=== PATIENT | male | born 1945 | race American Indian/Alaskan Native ===

== ENCOUNTER 2017-02-28 18:25 | Inpatient (IN) | payer MEDICARE ==
[2017-02-28] MEDS: Insulin Lispro (humaLOG) 100 Units/ml Inj SC SCH (22:20)
[2017-02-28] MEDS: Enoxaparin 80 mg Syringe SC SCH (23:40)
[2017-03-01] MEDS: Insulin Lispro (humaLOG) 100 Units/ml Inj SC SCH ×4 (06:50→21:07)
[2017-03-01 07:10] LABS: HEMATOCRIT 31.3 % (35.0-51.0); MEAN CELL VOLUME 83.9 fl (80.0-94.0); MEAN CORPUSCULAR HEMOGLOBIN 27.1 pg (27.0-31.0); MEAN CORPUSCULAR HGB CONC 32.3 g/dL (33.0-37.0); RED CELL DISTRIBUTION WIDTH 16.1 % (11.5-14.5); WHITE BLOOD COUNT 6.5 K/uL (4.8-10.8)
[2017-03-01 07:23] LABS: ALKALINE PHOSPHATASE 95 U/L (38-126); ALT/SGPT 33 U/L (21-72); AST/SGOT 38 U/L (17-59); BILIRUBIN,TOTAL 0.4 mg/dl (0.2-1.3); BLOOD UREA NITROGEN 10 mg/dl (9-20); CARBON DIOXIDE 25 mmol/L (22-30); CHLORIDE 105 mmol/L (98-107); GFR AFRICAN-AMERICAN > 60; GLUCOSE,RANDOM 104 mg/dL (75-110); POTASSIUM 4.5 MMOL/L (3.6-5.0); SODIUM 142 mmol/l (132-148); TOTAL PROTEIN 6.6 G/DL (6.3-8.2)
[2017-03-01] MEDS: Enoxaparin 80 mg Syringe SC SCH ×3 (08:12→21:56)
[2017-03-01] MEDS ORDERED: Patient's Own Med (Valsartan [Diovan] 320 MG) PO SCH (09:00)
[2017-03-01] MEDS ORDERED: Patient's Own Med (Cyanocobalamin (Vitamin B-12) [B-12] 1,000 MCG) PO SCH (09:00)
--- NOTE | 2017-03-01 12:03 | PSY.TMCNF ---
Nursing - Vital Signs Vital Signs (Last 8 hours): Vital Signs 03/01/17 03/01/17 07:29 08:13 Temperature 97.3 F L Pulse Rate 74 Respiratory 19 Rate Blood Pressure 125/62 125/62 O2 Sat by Pulse 97 Oximetry Pain: 0 - Medications/Other Issues Comment: To follow as per nutrition protocol - Wound Left Lower Calf Wound Type: Stasis Ulcer Wound Shape: Irregular Wound Dressing Status: Dry & Intact Dressing Changed: No Wound Primary Dressing Type: Medicated Gauze Pads Wound Secondary Dressing Type: Gauze Roll/Wrap - Bladder Management Bladder Pattern: Incontinent Voiding Method: Urinal, Diaper - Bowel Management Bowel Pattern: Constipated Physical Therapy - Pain Management Techniques: Medication Occupational Therapy - Arousal/Attention/Orientation Patient Orientation: Person, Place, Time, Appropriate to Age, Appropriate to Situation - ADL/IADL Bathing-Upper Extremity: Moderate Assistance Bathing-Lower Extremity: Maximum Assistance - Pain Alleviating Techniques: Medication Speech Therapy - Assessment Dysphagia/Swallowing Impairment: Moderate Nutrition - Current Diet Current Diet/ Supplement/ Feedings: Pureed nectar thick - Appetite Percent Meal Consumed: 75-100% - Assessment/Goals/Time Frame Assessment/Goals/Time Frame: To follow as per nutrition protocol - Provider Provider: Keri Branch RD Case Management - Discharge Plan Discharge Plan: Home with significant other/family Rehabilitation Plan - Treatment Plan Treatment Plan: Physical Therapy, Occupational Therapy, Speech, Dietary, Patient /Family Education - Recommendation Recommendation: Physical Therapy, Occupational Therapy, Speech, Dietary, Patient /Family Education - Discharge Plan Discharge to: Home
--- NOTE | 2017-03-01 14:29 | CP.PCM.PN ---
Subjective - Date & Time of Evaluation Date of Evaluation: 03/01/17 Time of Evaluation: 09:00 - Subjective Subjective: patinet with left sided weakness Objective - Vital Signs/Intake and Output Vital Signs (last 24 hours): Temp Pulse Resp BP Pulse Ox 97.3 F L 74 19 125/62 97 03/01/17 11:30 03/01/17 11:30 03/01/17 11:30 03/01/17 11:30 03/01/17 07:29 - Medications Medications: Current Medications Amlodipine Besylate (Norvasc) 10 mg PO DAILY [facility] Last Admin: 03/01/17 08:13 Dose: 10 mg Aspirin (Aspirin Chewable) 81 mg PO DAILY [facility] Last Admin: 03/01/17 08:14 Dose: 81 mg Atorvastatin Calcium (Lipitor) 40 mg PO HS [facility] Last Admin: 02/28/17 23:14 Dose: 40 mg Cyanocobalamin (Vitamin B12 1000 Mcg Tab) 1,000 mcg PO DAILY [facility] Last Admin: 03/01/17 08:13 Dose: 1,000 mcg Enoxaparin Sodium (Lovenox) 80 mg SC 1000,2200 [facility] PRN Reason: Protocol Last Admin: 03/01/17 09:37 Dose: Not Given Famotidine (Pepcid) 20 mg PO BID [facility] Last Admin: 03/01/17 08:14 Dose: 20 mg Ferrous Sulfate (Feosol) 325 mg PO DAILY [facility] Last Admin: 03/01/17 08:13 Dose: 325 mg Folic Acid (Folic Acid) 1 mg PO DAILY [facility] Last Admin: 03/01/17 08:14 Dose: 1 mg Ceftriaxone Sodium 1 gm/ (Sodium Chloride) 100 mls @ 100 mls/hr IVPB DAILY@ 1700 [facility] Insulin Human Lispro (Humalog) 0 units SC ACHS [facility] PRN Reason: Protocol Last Admin: 03/01/17 12:36 Dose: Not Given Thiamine HCl (Vitamin B1 Tab) 100 mg PO DAILY [facility] Last Admin: 03/01/17 08:14 Dose: 100 mg Valsartan (Diovan) 320 mg PO DAILY [facility] Last Admin: 03/01/17 08:13 Dose: 320 mg - Labs Labs: 03/01/17 06:40 03/01/17 06:40 PT 11.5 SECONDS (9.6-11.2) H 03/01/17 06:40 INR 1.11 (0.92-1.08) H 03/01/17 06:40 - Head Exam Head Exam: ATRAUMATIC, NORMAL INSPECTION, NORMOCEPHALIC - Eye Exam Eye Exam: EOMI, Normal appearance, PERRL Pupil Exam: NORMAL ACCOMODATION - ENT Exam ENT Exam: Mucous Membranes Moist, Normal Exam - Respiratory Exam Respiratory Exam: Respiratory Distress - Cardiovascular Exam Cardiovascular Exam: REGULAR RHYTHM - GI/Abdominal Exam GI & Abdominal Exam: Soft, Normal Bowel Sounds - Exam External exam: NORMAL EXTERNAL EXAM - Extremities Exam Extremities Exam: Normal Capillary Refill - Back Exam Back Exam: NORMAL INSPECTION - Neurological Exam Neurological Exam: Alert, Awake Neuro motor strength exam: Left Upper Extremity: 2/1, Right Upper Extremity: 3, Left Lower Extremity: 2/1, Right Lower Extremity: 3 - Psychiatric Exam Psychiatric exam: Normal Affect, Normal Mood - Skin Skin Exam: Dry, Intact Assessment and Plan (1) Effusion of right knee Status: Acute (2) Pseudogout of right knee Status: Acute (3) TIA (transient ischemic attack) Status: Acute (4) Leg ulcer, left Status: Acute (5) Constipation Status: Acute (6) Dizzinesses Status: Acute (7) Infected wound Status: Acute (8) Malignant hypertension Status: Acute (9) CVA (cerebral vascular accident) Assessment & Plan: plan for physical, occupational and rec and speech therapy follow up with left heel and left leg ulcer Status: Chronic
--- NOTE | 2017-03-01 14:44 | PN ---
DATE: 03/01/2017 ESTIMATED LENGTH OF STAY: 2-1/2 to 3 weeks. REHABILITATION IMPAIRMENT: Decreased strength, mobility, transfers, gait, problems with swallowing. ETIOLOGICAL DIAGNOSES: Acute cerebrovascular, ICD code 01.1. 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 Rehab medical prognosis fair. INTERVENTIONS: Physical therapy, occupational therapy, recreational therapy, speech therapy. Goals for the patient to be independent in bed mobility, independence of supervision for functional positio nal changes, independence of supervision for simple transfers, supervision to contact guard for compl ex transfers, independence of supervision for ambulation with assistive devices, supervision to conta ct guard for elevations. Functional outcome is good. No acute barriers noted for discharge. TENTATIVE DISCHARGE DISPOSITION: To be discharged home with supportive services. Jorje Su MD cc: [id number] TT: 03/01/2017 14:43:44 Confirmation # [id number] Dictation # [id number] francesco
--- NOTE | 2017-03-01 14:48 | CON ---
DATE: 03/01/2017 HISTORY OF PRESENT ILLNESS: A 71-year-old male admitted for acute inpatient rehab program. 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 Bowles for care of the ulcer and grafting, also history o f obesity, peripheral vascular disease, basilar artery stenosis. ALLERGIES: No known allergies. SOCIAL HISTORY: Smoking 10 years ago. No history of drinking, no history of other drug abuse. FAMILY HISTORY: Noncontributory. FUNCTIONAL STATUS: The patient was living alone in a second floor apartment, 10 steps to negotiate. REVIEW OF SYSTEMS: The patient with left-sided weakness with slurred speech previously, now better. PHYSICAL EXAMINATION: VITAL SIGNS: Stable. NECK: Supple. CHEST: Symmetrical. HEART: Sounds S1, S2. ABDOMEN: Benign. EXTREMITIES: No clubbing, cyanosis, or edema. Left upper extremity: Tone normal, range of motion i s limited, especially at the shoulder. Muscle strength is fair. Limitation in full range of motion of the left shoulder, able to flex and extend the left elbow, make a fist of the hand. Left lower ex tremity: Tone is increased, range of motion is limited. Muscle strength is 3/5. Right upper and ri ght lower extremity: Tone normal, range of motion is functional. Muscle strength is good. Sensatio ns to pinprick, light touch intact. Deep tendon reflexes 2+ bilaterally. Other systems are negative . IMPRESSION: Acute cerebrovascular accident, ICD code 01.1 with left hemiplegia, history of hypertens ion, dyslipidemia, chronic left leg ulcer. PLAN: Physical therapy, occupational therapy, speech therapy, recreational therapy. Plan for the pa tient is for range of motion, strengthening, transfers, ambulation and gait training, activities of d aily living evaluation, equipment evaluation. Speech for swallowing evaluation. Estimated length of stay for this patient is 2-3 weeks. Anticipated discharge plan is to go back to live at home with s upportive services. Goals at present for supervision: The patient for independence of supervision for bed mobility, inde pendent to supervision for simple transfers, supervision and contact guard for complex transfers, ind ependence of supervision for ambulation with assistive devices, supervision to contact guard for elev ations. Further goals may be modified depending on return of muscle strength. PRECAUTIONS: Fall precautions. Therapy orders for physical and occupational and recreational and sp eech therapy orders are written. The patient also for team conference today as well. Jorje Su MD cc: [id number] TT: 03/01/2017 14:47:11 Confirmation # [id number] Dictation # [id number] dn
[2017-03-01] MEDS ORDERED: cefTRIAXone (Rocephin) 1 gm Inj IVPB SCH (17:00)
--- NOTE | 2017-03-01 21:04 | CON ---
DATE: 03/01/2017 TIME OF DICTATION: Roughly 6 p.m. BRIEF HISTORY: The patient is a 71-year-old black male status post stroke, currently wheelchair depe ndent, but previously walked with a cane, who complained of seeing some blood in his urine a few days ago, which has resolved spontaneously. A urinalysis done on 02/27/2017 was completely normal, showi ng no evidence of any hematuria. The patient currently denies dysuria, renal colic, or abdominal pain. No history of any kidney stone s or kidney disease. No history of any sexually transmitted diseases. No history of cancer, especia lly prostate cancer. No family history of prostate cancer. He stopped using tobacco and alcohol many, many years ago. He has no known allergies to any medications. His only surgical history is that of a bypass graft done for the left lower extremity. PHYSICAL EXAMINATION: The patient is a well-developed and well-nourished black male. He is alert. He is oriented. HENT EXAMINATION: Grossly within normal limits. NECK: Supple. Thyroid not palpable. ABDOMEN: Soft, not distended or tender. No CVA tenderness, and no suprapubic tenderness. GENITALIA: The patient is noncircumcised, with a normal glanular meatus, without any rashes or lesio ns visualized. Testes are down bilaterally, nontender, without any masses. RECTAL EXAMINATION: Normal rectal tone without fluctuance or masses. Prostate is slightly enlarged, smooth, symmetrical, nontender, without nodules or indurations, with an almost absent median sulcus. Laboratory evaluation on 03/01/2017 shows a CBC with a WBC count of 6.5, hemoglobin of 10.1, and dutch tocrit of 31.3, with a platelet count of 300,000, indicating a moderate anemia. His chem profile arpit ws a sodium of 142, potassium 4.5, chloride 105, CO2 of 25, BUN and creatinine of 10 and 1.2 respecti vely, with a GFR of greater than 60. Random glucose was 109, calcium was 9.0, total bilirubin 0.4. AST was 38, ALT was 33, alk phos was 95. DIAGNOSTIC IMPRESSION: 1. History of gross hematuria which has resolved spontaneously. 2. Benign prostatic hypertrophy, currently not requiring any type of benign prostatic hypertrophy med ications. The patient has a history of some urinary frequency and some nocturia. Plan for this patient is to just order a PSA for this patient and observe him for any further episode s of any hematuria. Brice Aparicio MD cc: [id number] TT: 03/01/2017 21:03:24 Confirmation # [id number] Dictation # [id number] jn
[2017-03-02] MEDS: Insulin Lispro (humaLOG) 100 Units/ml Inj SC SCH ×4 (06:48→21:09)
[2017-03-02] MEDS: Enoxaparin 80 mg Syringe SC SCH ×2 (09:03→21:09)
--- NOTE | 2017-03-02 10:34 | CP.PCM.CON ---
History of Present Illness - History of Present Illness History of Present Illness: PODIATRY CONSULT NOTE FOR DR. GEORGE: This is a 71 yo male pt w/ pmh HTN, chronic left leg ulceration, past CVA, recent TIA seen at the bedside in rehab this morning following request for podiatry consult. Per pt he says that he was recently at [facility] and suffered a stroke which he says left him with trouble swallowing and left sided weakness. 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 George weekly for wound care to the left leg ulcer. Says that the wound is much improved and causes him very little pain (has had for over 1 year). Also says his toenails are long and would like them to be cut today. Denies any other pedal problems at this time. PMH: HTN, chronic left leg ulcer, CVA (2010) ALL: NKDA MEDS: see JAN Surg. Hx: appendectomy, colonoscopy 2006 (polyps removed), left leg ulcer debridement + graft application (August 2016) Fam Hx: father diabetic, mother valvular heart disease Soc Hx: smoked cigarettes for 10 years (quit 1991), denies etoh, denies illicit drug use Review of Systems - Review of Systems Review of Systems: All systems reviewed and found to be negative with exception of pertinent HPI findings above - Constitutional Constitutional: As Per HPI Past Patient History - Infectious Disease Hx of Infectious Diseases: None - Past Medical History & Family History Past Medical History?: Yes - Past Social History Smoking Status: Former Smoker - CARDIAC Hx Hypertension: Yes - PULMONARY Hx Respiratory Disorders: No - NEUROLOGICAL HX Cerebrovascular Accident: Yes - HEENT Hx HEENT Problems: No - RENAL Hx Chronic Kidney Disease: Yes (CKD Stage 2) Other/Comment: - February 2017: (+) for UTI - ENDOCRINE/METABOLIC Hx Endocrine Disorders: No (Hx. Obesity; Denied being diabetic) - HEMATOLOGICAL/ONCOLOGICAL Hx AIDS: No Hx Human Immunodeficiency Virus (HIV): No - INTEGUMENTARY Hx Dermatological Problems: Yes Other/Comment: - Chronic left lower leg ulcer - MUSCULOSKELETAL/RHEUMATOLOGICAL Hx Falls: Yes - GASTROINTESTINAL Hx Gastrointestinal Disorders: Yes Hx Bowel Surgery: Yes (Patient stated "colon resection 2006") - GENITOURINARY/GYNECOLOGICAL Hx Prostate Problems: Yes ("little bleeding") - PSYCHIATRIC Hx Substance Use: No - SURGICAL HISTORY Hx Surgeries: Yes Hx Appendectomy: Yes Hx Cardiac Catheterization: Yes (Left leg cath) Other/Comment: - "Colon Resection 2006". - 2013 or 2015: "cath done to left leg to look at circulation" - ANESTHESIA Hx Anesthesia: Yes Hx Anesthesia Reactions: No Hx Malignant Hyperthermia: No Has any member of the family had a problem w/ anesthesia?: No Meds Allergies/Adverse Reactions: Allergies Allergy/AdvReac Type Severity Reaction Status Date / Time No Known Allergies Allergy Verified 02/28/17 21:47 - Medications Medications: Current Medications Amlodipine Besylate (Norvasc) 10 mg PO DAILY [facility] Last Admin: 03/02/17 09:02 Dose: 10 mg Aspirin (Aspirin Chewable) 81 mg PO DAILY [facility] Last Admin: 03/02/17 09:02 Dose: 81 mg Atorvastatin Calcium (Lipitor) 40 mg PO HS [facility] Last Admin: 03/01/17 21:56 Dose: 40 mg Cyanocobalamin (Vitamin B12 1000 Mcg Tab) 1,000 mcg PO DAILY [facility] Last Admin: 03/02/17 09:02 Dose: 1,000 mcg Enoxaparin Sodium (Lovenox) 80 mg SC 1000,2200 [facility] PRN Reason: Protocol Last Admin: 03/02/17 09:03 Dose: 80 mg Famotidine (Pepcid) 20 mg PO BID [facility] Last Admin: 03/02/17 09:01 Dose: 20 mg Ferrous Sulfate (Feosol) 325 mg PO DAILY [facility] Last Admin: 03/02/17 09:01 Dose: 325 mg Folic Acid (Folic Acid) 1 mg PO DAILY [facility] Last Admin: 03/02/17 09:01 Dose: 1 mg Ceftriaxone Sodium 1 gm/ (Sodium Chloride) 100 mls @ 100 mls/hr IVPB DAILY@ 1700 [facility] Last Admin: 03/01/17 16:30 Dose: 100 mls/hr Insulin Human Lispro (Humalog) 0 units SC ACHS [facility] PRN Reason: Protocol Last Admin: 03/02/17 06:48 Dose: Not Given Thiamine HCl (Vitamin B1 Tab) 100 mg PO DAILY [facility] Last Admin: 03/02/17 09:02 Dose: 100 mg Valsartan (Diovan) 320 mg PO DAILY [facility] Last Admin: 03/02/17 09:02 Dose: 320 mg Physical Exam - Constitutional Appears: Non-toxic, No Acute Distress - Extremities Exam Extremities exam: Negative for: calf tenderness Additional comments: BL lower extremity exam: Compressions stockings donned to both legs, dressing to right leg appears c/d/i VASC- DP pulses palpable 1/4 BL, PT pulses non-palpable bl, skin temp runs warm to cool bl, cft <3 sec to digits x 10, no pedal edema appreciated NEURO- gross pedal sensation is intact bl DERM- superficial ulceration (kraft grade 1) noted to distal lateral aspect of leg measures approx 2.0x0.5x0.2cm with wound bed 100% granular base, no drainage , malodor, no probe to bone, no acute signs infection, surrounding skin with hypo-pigmentation of previous skin graft noted appears 100% healed ORTHO- no pain to palpation wound - Neurological Exam Neurological exam: Alert, CN II-XII Intact, Oriented x3 - Psychiatric Exam Psychiatric exam: Normal Affect, Normal Mood Results - Vital Signs Recent Vital Signs: Last Vital Signs Temp 97.3 F L 03/02/17 09:05 Pulse 70 03/02/17 09:05 Resp 20 03/02/17 09:05 BP 148/68 03/02/17 09:05 Pulse Ox 97 03/02/17 09:05 - Labs Result Diagrams: 03/01/17 06:40 03/01/17 06:40 Labs: Laboratory Results - last 24 hr 03/01/17 03/01/17 03/01/17 10:56 15:56 20:41 POC Glucose (mg/dL) 148 H 96 115 H 03/02/17 06:07 POC Glucose (mg/dL) 105 Assessment & Plan - Assessment and Plan (Free Text) Assessment: 71 yo male patient w/ pmhx PVD, HTN, CVA, recent TIA, chronic left leg ulceration Plan: -Pt S&E at bedside -Plan discussed w/ attending Dr. George -Chart, labs, vitals reviewed: afebrile, no leukocystosis -Left leg ulceration cleansed with normal saline, xeroform, DSD, kerlix applied. COmpression stocking reapplied -Dressing to be chanted every other day (next dressing change Monday) -Toenails aseptically debrided x 10 without incident -Stable per podiatry -Podiatry will continue to follow while pt remains in house
[2017-03-02] MEDS ORDERED: Barium Sulfate Susp 0.1% w/v, 0.1% w/w 450 mL Bottle PO ONE (10:58)
[2017-03-02] MEDS: Lactobacillus Acidophilus 500 MU Cap PO SCH (16:43)
--- NOTE | 2017-03-02 17:03 | CP.PCM.HP ---
History of Present Illness - History of Present Illness History of Present Illness: CC: Acute CVA History of present Illness: A 71yoM with H/O CVA with left sided residual weakness, HTN and dyslipidemia was hospitalized after presenting with slurred speech, worsened left sided weakness and unable to swallow. IN the hopsital course, MRI Confirmed Acute CVA with Focalities. Given B/L Cerebral involvement, NICOL was done which showed ASD. Given patient developed ACute CVA while on Plavix and ASA and B/L CVA, Anticoagulation was initiated. Then the patient developed Hematuria while on Therapeutic Lovenox, and Coumadin. U/A showed UTI and Hematuria, and U/S showed Enlarged prostate. Currently speech is improving and tolerating Puree diet, and will get swallow evaluation. Present on Admission - Present on Admission Any Indicators Present on Admission: No History of DVT/PE: No History of Uncontrolled Diabetes: No Urinary Catheter: No Decubitus Ulcer Present: No Review of Systems - Review of Systems All systems: reviewed and no additional remarkable complaints except Past Patient History - Infectious Disease Hx of Infectious Diseases: None - Past Medical History & Family History Past Medical History?: Yes Past Family History: Reviewed and not pertinent - Past Social History Smoking Status: Former Smoker Alcohol: None Drugs: Denies - CARDIAC Hx Hypertension: Yes Hx Peripheral Vascular Disease: Yes Other/Comment: ASD - PULMONARY Hx Respiratory Disorders: No - NEUROLOGICAL HX Cerebrovascular Accident: Yes Hx Paralysis: Yes (Left sided) Hx Transient Ischemic Attacks (TIA): Yes - HEENT Hx HEENT Problems: No - RENAL Hx Chronic Kidney Disease: Yes (CKD Stage 2) Other/Comment: - February 2017: (+) for UTI - ENDOCRINE/METABOLIC Hx Endocrine Disorders: No (Hx. Obesity; Denied being diabetic) - HEMATOLOGICAL/ONCOLOGICAL Hx AIDS: No Hx Human Immunodeficiency Virus (HIV): No - INTEGUMENTARY Hx Dermatological Problems: Yes Other/Comment: - Chronic left lower leg ulcer - MUSCULOSKELETAL/RHEUMATOLOGICAL Hx Falls: Yes - GASTROINTESTINAL Hx Gastrointestinal Disorders: Yes Hx Bowel Surgery: Yes (Patient stated "colon resection 2006") HX Swallowing Problems: Yes - GENITOURINARY/GYNECOLOGICAL Hx Hematuria: Yes (Last Hospitalization in [facility] [place] 02/22/2017) Hx Prostate Problems: Yes ("little bleeding") - PSYCHIATRIC Hx Substance Use: No - SURGICAL HISTORY Hx Surgeries: Yes Hx Appendectomy: Yes Hx Cardiac Catheterization: Yes (Left leg cath) Other/Comment: - "Colon Resection 2006". - 2013 or 2015: "cath done to left leg to look at circulation" - ANESTHESIA Hx Anesthesia: Yes Hx Anesthesia Reactions: No Hx Malignant Hyperthermia: No Has any member of the family had a problem w/ anesthesia?: No Meds Allergies/Adverse Reactions: Allergies Allergy/AdvReac Type Severity Reaction Status Date / Time No Known Allergies Allergy Verified 02/28/17 21:47 Physical Exam - Constitutional Appears: Well, No Acute Distress - Head Exam Head Exam: ATRAUMATIC, NORMAL INSPECTION, NORMOCEPHALIC - Eye Exam Eye Exam: EOMI, Normal appearance, PERRL Pupil Exam: NORMAL ACCOMODATION, PERRL - ENT Exam ENT Exam: Mucous Membranes Moist, Normal Exam - Neck Exam Neck exam: Positive for: Full Rom, Normal Inspection - Respiratory Exam Respiratory Exam: Clear to Auscultation Bilateral, NORMAL BREATHING PATTERN - Cardiovascular Exam Cardiovascular Exam: REGULAR RHYTHM, +S1, +S2 - GI/Abdominal Exam GI & Abdominal Exam: Normal Bowel Sounds, Soft. absent: Tenderness - Extremities Exam Extremities exam: Positive for: full ROM, normal capillary refill, normal inspection - Back Exam Back exam: NORMAL INSPECTION. absent: CVA tenderness (L), CVA tenderness (R) - Neurological Exam Neurological exam: Alert, Oriented x3, Reflexes Normal Additional comments: Slurred speech and dysphagia which is improving from hospital. Failed spppech swallow in the Hospital. Left Upper Extremity- Weakness and spasticity from prior stroke, and left LE weakness worse than the baseline. +Facial Palsy. - Psychiatric Exam Psychiatric exam: Normal Affect, Normal Mood - Skin Skin Exam: Dry, Intact, Normal Color, Warm Results - Vital Signs Recent Vital Signs: Last Vital Signs Temp 97.0 F L 03/02/17 15:34 Pulse 62 03/02/17 15:34 Resp 18 03/02/17 15:34 BP 131/79 03/02/17 15:34 Pulse Ox 100 03/02/17 15:34 - Labs Result Diagrams: 03/01/17 06:40 03/01/17 06:40 Labs: Laboratory Results - last 24 hr 03/01/17 03/02/17 03/02/17 20:41 06:07 11:35 POC Glucose (mg/dL) 115 H 105 115 H 03/02/17 15:56 POC Glucose (mg/dL) 123 H - Imaging and Cardiology MRI - head Status: Report reviewed by me Additional comment: posterior Circulation Infarct to B/L Cerebral infarction, Vermis and Pontine infarcts. 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 Assessment & Plan (1) CVA (cerebral vascular accident) Assessment and Plan: Acute CVA Left sided acute on Chronic Hemiplegia Slurred speech Dysphagia Continue ASA/Lipitor/Lovenox 80mg SQ Q12/PT/OT Speech Consult for speech and swallowing Physiatry Consult with Status: Chronic Priority: Medium (2) UTI (urinary tract infection) Assessment and Plan: Continue Rocephin for 4 more days Status: Acute Priority: Medium (3) Leg ulcer, left Assessment and Plan: Continue Wound CAre Podiatry Consult Status: Chronic Priority: Medium (4) Constipation Assessment and Plan: Colace 100mg BID Status: Chronic Priority: Low (5) Hypertension Status: Chronic Priority: Medium (6) BPH (benign prostatic hyperplasia) Assessment and Plan: Hematuria Urlogy Consult PSA Status: Acute
[2017-03-03] MEDS: Insulin Lispro (humaLOG) 100 Units/ml Inj SC SCH ×4 (07:04→21:12)
[2017-03-03] MEDS: Lactobacillus Acidophilus 500 MU Cap PO SCH ×2 (08:36→17:23)
[2017-03-03] MEDS: Enoxaparin 80 mg Syringe SC SCH ×3 (09:00→21:27)
--- NOTE | 2017-03-03 13:50 | CP.PCM.PN ---
Subjective - Date & Time of Evaluation Date of Evaluation: 03/03/17 Time of Evaluation: 13:00 - Subjective Subjective: no acute complaints of neck or back pain Objective - Vital Signs/Intake and Output Vital Signs (last 24 hours): Temp Pulse Resp BP Pulse Ox 98.2 F 65 20 126/68 96 03/03/17 10:00 03/03/17 10:00 03/03/17 10:00 03/03/17 10:00 03/03/17 10:00 - Medications Medications: Current Medications Amlodipine Besylate (Norvasc) 10 mg PO DAILY [facility] Last Admin: 03/03/17 08:38 Dose: 10 mg Aspirin (Aspirin Chewable) 81 mg PO DAILY [facility] Last Admin: 03/03/17 08:37 Dose: 81 mg Atorvastatin Calcium (Lipitor) 40 mg PO HS [facility] Last Admin: 03/02/17 21:09 Dose: 40 mg Cyanocobalamin (Vitamin B12 1000 Mcg Tab) 1,000 mcg PO DAILY [facility] Last Admin: 03/03/17 08:38 Dose: 1,000 mcg Docusate Sodium (Colace) 100 mg PO BID [facility] Last Admin: 03/03/17 08:37 Dose: 100 mg Enoxaparin Sodium (Lovenox) 80 mg SC 1000,2200 [facility] PRN Reason: Protocol Last Admin: 03/03/17 09:00 Dose: 80 mg Famotidine (Pepcid) 20 mg PO BID [facility] Last Admin: 03/03/17 08:38 Dose: 20 mg Ferrous Sulfate (Feosol) 325 mg PO DAILY [facility] Last Admin: 03/03/17 08:37 Dose: 325 mg Folic Acid (Folic Acid) 1 mg PO DAILY [facility] Last Admin: 03/03/17 08:37 Dose: 1 mg Ceftriaxone Sodium 1 gm/ (Sodium Chloride) 100 mls @ 100 mls/hr IVPB DAILY@ 1700 [facility] Last Admin: 03/02/17 16:43 Dose: 100 mls/hr Insulin Human Lispro (Humalog) 0 units SC ACHS [facility] PRN Reason: Protocol Last Admin: 03/03/17 12:07 Dose: Not Given Lactobacillus Acidophilus (Bacid Acidophilus) 1 cap PO BID [facility] Last Admin: 03/03/17 08:36 Dose: 1 cap Thiamine HCl (Vitamin B1 Tab) 100 mg PO DAILY [facility] Last Admin: 03/03/17 08:37 Dose: 100 mg Valsartan (Diovan) 320 mg PO DAILY [facility] Last Admin: 03/03/17 08:38 Dose: 320 mg Warfarin Sodium (Coumadin) 5 mg PO QD5 [facility] PRN Reason: Protocol Stop: 03/03/17 17:01 - Labs Labs: 03/01/17 06:40 03/01/17 06:40 PT 11.4 SECONDS (9.6-11.2) H 03/03/17 09:20 INR 1.10 (0.92-1.08) H 03/03/17 09:20 - Head Exam Head Exam: ATRAUMATIC, NORMAL INSPECTION, NORMOCEPHALIC - Eye Exam Eye Exam: EOMI, Normal appearance, PERRL Pupil Exam: NORMAL ACCOMODATION - ENT Exam ENT Exam: Mucous Membranes Moist, Normal Exam - Neck Exam Neck Exam: Normal Inspection - Respiratory Exam Respiratory Exam: NORMAL BREATHING PATTERN - Cardiovascular Exam Cardiovascular Exam: REGULAR RHYTHM - GI/Abdominal Exam GI & Abdominal Exam: Normal Bowel Sounds - Rectal Exam Rectal Exam: NORMAL INSPECTION - Exam External exam: NORMAL EXTERNAL EXAM - Extremities Exam Extremities Exam: Normal Capillary Refill, Normal Inspection - Back Exam Back Exam: NORMAL INSPECTION - Neurological Exam Neurological Exam: Alert, Awake Neuro motor strength exam: Left Upper Extremity: 2/1, Right Upper Extremity: 3, Left Lower Extremity: 2/1, Right Lower Extremity: 3 - Psychiatric Exam Psychiatric exam: Normal Affect, Normal Mood - Skin Skin Exam: Dry, Intact Assessment and Plan (1) Effusion of right knee Status: Acute (2) TIA (transient ischemic attack) Assessment & Plan: plan for physical, occupational, rec therapy monitor skin and vital sign Status: Acute (3) Leg ulcer, left Status: Chronic (4) Constipation Status: Chronic (5) Dizzinesses Status: Acute (6) Infected wound Status: Acute (7) Malignant hypertension Status: Acute (8) CVA (cerebral vascular accident) Status: Chronic
[2017-03-03 19:56] LABS: ESTIM. PROBABILITY CANCER >50 Percent (()); TOTAL PSA 11.5 ng/mL (<=4.0)
--- NOTE | 2017-03-03 22:59 | CP.PCM.PN ---
Subjective - Date & Time of Evaluation Date of Evaluation: 03/03/17 Time of Evaluation: 16:00 Objective - Vital Signs/Intake and Output Vital Signs (last 24 hours): Temp Pulse Resp BP Pulse Ox 98.1 F 62 20 123/70 98 03/03/17 22:00 03/03/17 22:00 03/03/17 22:00 03/03/17 22:00 03/03/17 22:00 - Medications Medications: Current Medications Amlodipine Besylate (Norvasc) 10 mg PO DAILY [facility] Last Admin: 03/03/17 08:38 Dose: 10 mg Aspirin (Aspirin Chewable) 81 mg PO DAILY [facility] Last Admin: 03/03/17 08:37 Dose: 81 mg Atorvastatin Calcium (Lipitor) 40 mg PO HS [facility] Last Admin: 03/03/17 21:09 Dose: 40 mg Cyanocobalamin (Vitamin B12 1000 Mcg Tab) 1,000 mcg PO DAILY [facility] Last Admin: 03/03/17 08:38 Dose: 1,000 mcg Docusate Sodium (Colace) 100 mg PO BID [facility] Last Admin: 03/03/17 17:24 Dose: 100 mg Enoxaparin Sodium (Lovenox) 80 mg SC 1000,2200 [facility] PRN Reason: Protocol Last Admin: 03/03/17 21:27 Dose: Not Given Famotidine (Pepcid) 20 mg PO BID [facility] Last Admin: 03/03/17 17:24 Dose: 20 mg Ferrous Sulfate (Feosol) 325 mg PO DAILY [facility] Last Admin: 03/03/17 08:37 Dose: 325 mg Folic Acid (Folic Acid) 1 mg PO DAILY [facility] Last Admin: 03/03/17 08:37 Dose: 1 mg Ceftriaxone Sodium 1 gm/ (Sodium Chloride) 100 mls @ 100 mls/hr IVPB DAILY@ 1700 [facility] Last Admin: 03/03/17 17:23 Dose: 100 mls/hr Insulin Human Lispro (Humalog) 0 units SC ACHS [facility] PRN Reason: Protocol Last Admin: 03/03/17 21:12 Dose: Not Given Lactobacillus Acidophilus (Bacid Acidophilus) 1 cap PO BID [facility] Last Admin: 03/03/17 17:23 Dose: 1 cap Thiamine HCl (Vitamin B1 Tab) 100 mg PO DAILY [facility] Last Admin: 03/03/17 08:37 Dose: 100 mg Valsartan (Diovan) 320 mg PO DAILY [facility] Last Admin: 03/03/17 08:38 Dose: 320 mg - Labs Labs: 03/01/17 06:40 03/01/17 06:40 PT 11.4 SECONDS (9.6-11.2) H 03/03/17 09:20 INR 1.10 (0.92-1.08) H 03/03/17 09:20 Assessment and Plan (1) CVA (cerebral vascular accident) Status: Chronic (2) UTI (urinary tract infection) Status: Acute (3) Leg ulcer, left Status: Chronic (4) Constipation Status: Chronic (5) Hypertension Status: Chronic (6) BPH (benign prostatic hyperplasia) Status: Acute
[2017-03-04] MEDS: Insulin Lispro (humaLOG) 100 Units/ml Inj SC SCH ×2 (06:40→12:00)
[2017-03-04] MEDS: Lactobacillus Acidophilus 500 MU Cap PO SCH ×2 (08:40→17:00)
[2017-03-04] MEDS: Enoxaparin 80 mg Syringe SC SCH ×2 (09:26→21:57)
[2017-03-04 09:46] LABS: HEMATOCRIT 32.3 % (35.0-51.0); MEAN CELL VOLUME 84.7 fl (80.0-94.0); MEAN CORPUSCULAR HEMOGLOBIN 26.9 pg (27.0-31.0); MEAN CORPUSCULAR HGB CONC 31.8 g/dL (33.0-37.0); WHITE BLOOD COUNT 6.2 K/uL (4.8-10.8)
--- NOTE | 2017-03-04 12:09 | CP.PCM.PN ---
Subjective - Date & Time of Evaluation Date of Evaluation: 03/04/17 Time of Evaluation: 11:30 - Subjective Subjective: 71 yo male pt S&E at bedside in rehab this morning for f/u left leg ulceration. Pt seen resting comfortably in bedside chair at time of visit. Denies any acute events overnight. Denies any pain or discomfort to the leg. Denies f/n/v/c/sob/ cp. Denies any other problems today Objective - Vital Signs/Intake and Output Vital Signs (last 24 hours): Temp Pulse Resp BP Pulse Ox 97.5 F L 80 18 141/90 98 03/04/17 07:35 03/04/17 09:55 03/04/17 07:35 03/04/17 09:55 03/04/17 09:55 - Medications Medications: Current Medications Amlodipine Besylate (Norvasc) 10 mg PO DAILY [facility] Last Admin: 03/04/17 09:25 Dose: 10 mg Aspirin (Aspirin Chewable) 81 mg PO DAILY [facility] Last Admin: 03/04/17 08:42 Dose: 81 mg Atorvastatin Calcium (Lipitor) 40 mg PO HS [facility] Last Admin: 03/03/17 21:09 Dose: 40 mg Cyanocobalamin (Vitamin B12 1000 Mcg Tab) 1,000 mcg PO DAILY [facility] Last Admin: 03/04/17 08:41 Dose: 1,000 mcg Docusate Sodium (Colace) 100 mg PO BID [facility] Last Admin: 03/04/17 08:41 Dose: 100 mg Enoxaparin Sodium (Lovenox) 80 mg SC 1000,2200 [facility] PRN Reason: Protocol Last Admin: 03/04/17 09:26 Dose: 80 mg Famotidine (Pepcid) 20 mg PO BID [facility] Last Admin: 03/04/17 08:41 Dose: 20 mg Ferrous Sulfate (Feosol) 325 mg PO DAILY [facility] Last Admin: 03/04/17 08:41 Dose: 325 mg Folic Acid (Folic Acid) 1 mg PO DAILY [facility] Last Admin: 03/04/17 08:41 Dose: 1 mg Ceftriaxone Sodium 1 gm/ (Sodium Chloride) 100 mls @ 100 mls/hr IVPB DAILY@ 1700 [facility] Last Admin: 03/03/17 17:23 Dose: 100 mls/hr Insulin Human Lispro (Humalog) 0 units SC ACHS [facility] PRN Reason: Protocol Last Admin: 03/04/17 06:40 Dose: Not Given Lactobacillus Acidophilus (Bacid Acidophilus) 1 cap PO BID [facility] Last Admin: 03/04/17 08:40 Dose: 1 cap Thiamine HCl (Vitamin B1 Tab) 100 mg PO DAILY [facility] Last Admin: 03/04/17 08:45 Dose: 100 mg Valsartan (Diovan) 320 mg PO DAILY [facility] Last Admin: 03/04/17 08:41 Dose: 320 mg - Labs Labs: 03/04/17 08:30 03/01/17 06:40 PT 11.6 SECONDS (9.6-11.2) H 03/04/17 06:30 INR 1.12 (0.92-1.08) H 03/04/17 06:30 - Constitutional Appears: Non-toxic, No Acute Distress - Extremities Exam Extremities Exam: absent: Calf Tenderness Additional comments: LLE exam: Compressions stockings donned to both legs, dressing to left leg appears c/d/i VASC- DP pulses palpable 1/4 BL, PT pulses non-palpable bl, skin temp runs warm to cool bl, cft <3 sec to digits x 10, no pedal edema appreciated NEURO- gross pedal sensation is intact bl DERM- superficial ulceration (kraft grade 1) noted to distal lateral aspect of leg measures approx 2.0x0.5x0.2cm with wound bed 100% granular base, no drainage , malodor, no probe to bone, no acute signs infection, surrounding skin with hypo-pigmentation of previous skin graft noted appears 100% healed ORTHO- no pain to palpation wound - Neurological Exam Neurological Exam: Alert, Awake, Oriented x3 - Psychiatric Exam Psychiatric exam: Normal Affect, Normal Mood Assessment and Plan - Assessment and Plan (Free Text) Assessment: 71 yo male patient w/ pmhx PVD, HTN, CVA, recent TIA, chronic left leg ulceration (non-infected) Plan: -Pt S&E at bedside -Plan discussed w/ attending Dr. Hernandez -Chart, labs, vitals reviewed: afebrile, no leukocystosis -Left leg ulceration cleansed with normal saline, xeroform, DSD, kerlix applied. Compression stocking reapplied -Dressing to be chanted every other day (next dressing change Monday) -Stable per podiatry -Podiatry will continue to follow while pt remains in house
--- NOTE | 2017-03-04 16:01 | PN ---
DATE: 03/04/2017 Roughly at 3:12 p.m. Called to see the patient in followup regarding an elevated PSA of 11.5 found on lab work done on 02/11. His total PSA was 11.5 and a free PSA was 2.2%. This PSA, however, was drawn while the migue ent was being treated for urinary tract infection for which he currently still is receiving antibioti cs at this time. The patient currently though however, is relatively asymptomatic. He is voiding am julian urine well without any complaints. He has no dysuria, gross hematuria, renal colic, or abdominal pain. This finding was discussed completely with the patient at the bedside and the patient will be seen in office followup in about 2 weeks after his discharge and if his urinalysis in the office is completely normal, we will repeat his total PSA with a 4K score. Brice Aparicio MD cc: [phone] TT: 03/04/2017 16:00:58 Confirmation # [id number] Dictation # [id number] [email or web address]
[2017-03-04] MEDS: Insulin Regular 100 units/ml SC SCH ×2 (16:56→22:09)
--- NOTE | 2017-03-04 21:01 | CP.PCM.PN ---
Subjective - Date & Time of Evaluation Date of Evaluation: 03/04/17 Time of Evaluation: 16:00 - Subjective Subjective: no acute complaints at present Objective - Vital Signs/Intake and Output Vital Signs (last 24 hours): Temp Pulse Resp BP Pulse Ox 98.4 F 73 20 118/68 100 03/04/17 16:01 03/04/17 16:01 03/04/17 16:01 03/04/17 16:01 03/04/17 16:01 - Medications Medications: Current Medications Amlodipine Besylate (Norvasc) 10 mg PO DAILY [facility] Last Admin: 03/04/17 09:25 Dose: 10 mg Aspirin (Aspirin Chewable) 81 mg PO DAILY [facility] Last Admin: 03/04/17 08:42 Dose: 81 mg Atorvastatin Calcium (Lipitor) 40 mg PO HS [facility] Last Admin: 03/03/17 21:09 Dose: 40 mg Cyanocobalamin (Vitamin B12 1000 Mcg Tab) 1,000 mcg PO DAILY [facility] Last Admin: 03/04/17 08:41 Dose: 1,000 mcg Docusate Sodium (Colace) 100 mg PO BID [facility] Last Admin: 03/04/17 16:53 Dose: 100 mg Enoxaparin Sodium (Lovenox) 80 mg SC 1000,2200 [facility] PRN Reason: Protocol Last Admin: 03/04/17 09:26 Dose: 80 mg Famotidine (Pepcid) 20 mg PO BID [facility] Last Admin: 03/04/17 16:53 Dose: 20 mg Ferrous Sulfate (Feosol) 325 mg PO DAILY [facility] Last Admin: 03/04/17 08:41 Dose: 325 mg Folic Acid (Folic Acid) 1 mg PO DAILY [facility] Last Admin: 03/04/17 08:41 Dose: 1 mg Ceftriaxone Sodium 1 gm/ (Sodium Chloride) 100 mls @ 100 mls/hr IVPB DAILY@ 1700 [facility] Last Admin: 03/04/17 16:53 Dose: 100 mls/hr Insulin Human Regular (Humulin R) 0 units SC ACHS [facility] PRN Reason: Protocol Last Admin: 03/04/17 16:56 Dose: Not Given Lactobacillus Acidophilus (Bacid Acidophilus) 1 cap PO BID [facility] Last Admin: 03/04/17 17:00 Dose: 1 cap Thiamine HCl (Vitamin B1 Tab) 100 mg PO DAILY [facility] Last Admin: 03/04/17 08:45 Dose: 100 mg Valsartan (Diovan) 320 mg PO DAILY [facility] Last Admin: 03/04/17 08:41 Dose: 320 mg - Labs Labs: 03/04/17 08:30 03/01/17 06:40 PT 11.6 SECONDS (9.6-11.2) H 03/04/17 06:30 INR 1.12 (0.92-1.08) H 03/04/17 06:30 - Head Exam Head Exam: ATRAUMATIC, NORMAL INSPECTION, NORMOCEPHALIC - ENT Exam ENT Exam: Mucous Membranes Moist, Normal Exam - Respiratory Exam Respiratory Exam: NORMAL BREATHING PATTERN - Cardiovascular Exam Cardiovascular Exam: REGULAR RHYTHM - Rectal Exam Rectal Exam: NORMAL INSPECTION - Exam External exam: NORMAL EXTERNAL EXAM - Back Exam Back Exam: NORMAL INSPECTION - Neurological Exam Neurological Exam: Alert, Awake Neuro motor strength exam: Left Upper Extremity: 2/1, Right Upper Extremity: 3, Left Lower Extremity: 2/1, Right Lower Extremity: 3 - Psychiatric Exam Psychiatric exam: Normal Affect, Normal Mood - Skin Skin Exam: Normal Color Assessment and Plan (1) Effusion of right knee Status: Acute (2) TIA (transient ischemic attack) Status: Acute (3) Leg ulcer, left Status: Chronic (4) Constipation Status: Chronic (5) Dizzinesses Status: Acute (6) Infected wound Status: Acute (7) Malignant hypertension Status: Acute (8) CVA (cerebral vascular accident) Assessment & Plan: plan for physical, occupational, rec and speech therapy program. Monitor skin and leg . to continue wit Acute rehab Status: Chronic
--- NOTE | 2017-03-04 23:54 | CP.PCM.PN ---
Subjective - Date & Time of Evaluation Date of Evaluation: 03/04/17 Time of Evaluation: 08:00 Objective - Vital Signs/Intake and Output Vital Signs (last 24 hours): Temp Pulse Resp BP Pulse Ox 98.4 F 73 20 118/68 100 03/04/17 16:01 03/04/17 16:01 03/04/17 16:01 03/04/17 16:01 03/04/17 16:01 - Medications Medications: Current Medications Amlodipine Besylate (Norvasc) 10 mg PO DAILY [facility] Last Admin: 03/04/17 09:25 Dose: 10 mg Aspirin (Aspirin Chewable) 81 mg PO DAILY [facility] Last Admin: 03/04/17 08:42 Dose: 81 mg Atorvastatin Calcium (Lipitor) 40 mg PO HS [facility] Last Admin: 03/04/17 21:56 Dose: 40 mg Cyanocobalamin (Vitamin B12 1000 Mcg Tab) 1,000 mcg PO DAILY [facility] Last Admin: 03/04/17 08:41 Dose: 1,000 mcg Docusate Sodium (Colace) 100 mg PO BID [facility] Last Admin: 03/04/17 16:53 Dose: 100 mg Enoxaparin Sodium (Lovenox) 80 mg SC 1000,2200 [facility] PRN Reason: Protocol Last Admin: 03/04/17 21:57 Dose: 80 mg Famotidine (Pepcid) 20 mg PO BID [facility] Last Admin: 03/04/17 16:53 Dose: 20 mg Ferrous Sulfate (Feosol) 325 mg PO DAILY [facility] Last Admin: 03/04/17 08:41 Dose: 325 mg Folic Acid (Folic Acid) 1 mg PO DAILY [facility] Last Admin: 03/04/17 08:41 Dose: 1 mg Ceftriaxone Sodium 1 gm/ (Sodium Chloride) 100 mls @ 100 mls/hr IVPB DAILY@ 1700 [facility] Last Admin: 03/04/17 16:53 Dose: 100 mls/hr Insulin Human Regular (Humulin R) 0 units SC ACHS [facility] PRN Reason: Protocol Last Admin: 03/04/17 22:09 Dose: Not Given Lactobacillus Acidophilus (Bacid Acidophilus) 1 cap PO BID [facility] Last Admin: 03/04/17 17:00 Dose: 1 cap Thiamine HCl (Vitamin B1 Tab) 100 mg PO DAILY [facility] Last Admin: 03/04/17 08:45 Dose: 100 mg Valsartan (Diovan) 320 mg PO DAILY [facility] Last Admin: 03/04/17 08:41 Dose: 320 mg - Labs Labs: 03/04/17 08:30 03/01/17 06:40 PT 11.6 SECONDS (9.6-11.2) H 03/04/17 06:30 INR 1.12 (0.92-1.08) H 03/04/17 06:30 Assessment and Plan (1) CVA (cerebral vascular accident) Status: Chronic (2) UTI (urinary tract infection) Status: Acute (3) Leg ulcer, left Status: Chronic (4) Constipation Status: Chronic (5) Hypertension Status: Chronic (6) BPH (benign prostatic hyperplasia) Status: Acute
[2017-03-05] MEDS: Insulin Regular 100 units/ml SC SCH ×5 (07:37→21:08)
[2017-03-05] MEDS: Enoxaparin 80 mg Syringe SC SCH ×2 (09:04→21:07)
[2017-03-05] MEDS: Lactobacillus Acidophilus 500 MU Cap PO SCH ×2 (09:04→17:01)
--- NOTE | 2017-03-05 09:58 | CP.PCM.PN ---
Subjective - Date & Time of Evaluation Date of Evaluation: 03/05/17 Time of Evaluation: 10:20 Objective - Vital Signs/Intake and Output Vital Signs (last 24 hours): Temp Pulse Resp BP Pulse Ox 98.2 F 74 20 120/59 L 97 03/05/17 09:18 03/05/17 09:18 03/05/17 09:18 03/05/17 09:18 03/05/17 09:18 - Medications Medications: Current Medications Amlodipine Besylate (Norvasc) 10 mg PO DAILY [facility] Last Admin: 03/05/17 09:06 Dose: 10 mg Aspirin (Aspirin Chewable) 81 mg PO DAILY [facility] Last Admin: 03/05/17 09:06 Dose: 81 mg Atorvastatin Calcium (Lipitor) 40 mg PO HS [facility] Last Admin: 03/04/17 21:56 Dose: 40 mg Cyanocobalamin (Vitamin B12 1000 Mcg Tab) 1,000 mcg PO DAILY [facility] Last Admin: 03/05/17 09:05 Dose: 1,000 mcg Docusate Sodium (Colace) 100 mg PO BID [facility] Last Admin: 03/05/17 09:07 Dose: Not Given Enoxaparin Sodium (Lovenox) 80 mg SC 1000,2200 [facility] PRN Reason: Protocol Last Admin: 03/05/17 09:04 Dose: 80 mg Famotidine (Pepcid) 20 mg PO BID [facility] Last Admin: 03/05/17 09:05 Dose: 20 mg Ferrous Sulfate (Feosol) 325 mg PO DAILY [facility] Last Admin: 03/05/17 09:06 Dose: 325 mg Folic Acid (Folic Acid) 1 mg PO DAILY [facility] Last Admin: 03/05/17 09:06 Dose: 1 mg Ceftriaxone Sodium 1 gm/ (Sodium Chloride) 100 mls @ 100 mls/hr IVPB DAILY@ 1700 [facility] Last Admin: 03/04/17 16:53 Dose: 100 mls/hr Insulin Human Regular (Humulin R) 0 units SC ACHS [facility] PRN Reason: Protocol Last Admin: 03/05/17 07:37 Dose: Not Given Lactobacillus Acidophilus (Bacid Acidophilus) 1 cap PO BID [facility] Last Admin: 03/05/17 09:04 Dose: 1 cap Thiamine HCl (Vitamin B1 Tab) 100 mg PO DAILY [facility] Last Admin: 03/05/17 09:05 Dose: 100 mg Valsartan (Diovan) 320 mg PO DAILY [facility] Last Admin: 03/05/17 09:07 Dose: 320 mg - Labs Labs: 03/04/17 08:30 03/01/17 06:40 PT 11.6 SECONDS (9.6-11.2) H 03/04/17 06:30 INR 1.12 (0.92-1.08) H 03/04/17 06:30 Assessment and Plan (1) CVA (cerebral vascular accident) Status: Chronic (2) UTI (urinary tract infection) Status: Acute (3) Leg ulcer, left Status: Chronic (4) Constipation Status: Chronic (5) Hypertension Status: Chronic (6) BPH (benign prostatic hyperplasia) Status: Acute
[2017-03-06] MEDS: Insulin Regular 100 units/ml SC SCH ×3 (06:57→17:10)
[2017-03-06] MEDS: Lactobacillus Acidophilus 500 MU Cap PO SCH ×2 (08:04→17:08)
[2017-03-06] MEDS: Enoxaparin 80 mg Syringe SC SCH ×2 (09:03→21:10)
--- NOTE | 2017-03-06 23:26 | CP.PCM.PN ---
Subjective - Date & Time of Evaluation Date of Evaluation: 03/06/17 Time of Evaluation: 15:00 Objective - Vital Signs/Intake and Output Vital Signs (last 24 hours): Temp Pulse Resp BP Pulse Ox 97.5 F L 67 20 140/89 97 03/06/17 20:34 03/06/17 20:34 03/06/17 20:34 03/06/17 20:34 03/06/17 20:34 - Medications Medications: Current Medications Amlodipine Besylate (Norvasc) 10 mg PO DAILY [facility] Last Admin: 03/06/17 08:02 Dose: 10 mg Aspirin (Aspirin Chewable) 81 mg PO DAILY [facility] Last Admin: 03/06/17 08:01 Dose: 81 mg Atorvastatin Calcium (Lipitor) 40 mg PO HS [facility] Last Admin: 03/06/17 21:10 Dose: 40 mg Cyanocobalamin (Vitamin B12 1000 Mcg Tab) 1,000 mcg PO DAILY [facility] Last Admin: 03/06/17 08:02 Dose: 1,000 mcg Docusate Sodium (Colace) 100 mg PO BID [facility] Last Admin: 03/06/17 17:08 Dose: 100 mg Enoxaparin Sodium (Lovenox) 80 mg SC 1000,2200 [facility] PRN Reason: Protocol Last Admin: 03/06/17 21:10 Dose: 80 mg Famotidine (Pepcid) 20 mg PO BID [facility] Last Admin: 03/06/17 17:08 Dose: 20 mg Ferrous Sulfate (Feosol) 325 mg PO DAILY [facility] Last Admin: 03/06/17 08:02 Dose: 325 mg Folic Acid (Folic Acid) 1 mg PO DAILY [facility] Last Admin: 03/06/17 08:02 Dose: 1 mg Insulin Human Regular (Humulin R) 0 units SC 0630 [facility] PRN Reason: Protocol Lactobacillus Acidophilus (Bacid Acidophilus) 1 cap PO BID [facility] Last Admin: 03/06/17 17:08 Dose: 1 cap Thiamine HCl (Vitamin B1 Tab) 100 mg PO DAILY [facility] Last Admin: 03/06/17 08:02 Dose: 100 mg Valsartan (Diovan) 320 mg PO DAILY [facility] Last Admin: 03/06/17 08:01 Dose: 320 mg - Labs Labs: 03/04/17 08:30 03/01/17 06:40 PT 14.0 SECONDS (9.6-11.2) H 03/06/17 05:20 INR 1.35 (0.92-1.08) H 03/06/17 05:20 Assessment and Plan (1) CVA (cerebral vascular accident) Status: Chronic (2) UTI (urinary tract infection) Status: Acute (3) Leg ulcer, left Status: Chronic (4) Constipation Status: Chronic (5) Hypertension Status: Chronic (6) BPH (benign prostatic hyperplasia) Status: Acute
[2017-03-07] MEDS: Insulin Regular 100 units/ml SC SCH (07:00)
[2017-03-07] MEDS: Lactobacillus Acidophilus 500 MU Cap PO SCH ×2 (09:08→16:12)
[2017-03-07] MEDS: Enoxaparin 80 mg Syringe SC SCH ×2 (09:08→21:20)
--- NOTE | 2017-03-07 10:41 | CP.PCM.PN ---
Subjective - Date & Time of Evaluation Date of Evaluation: 03/07/17 Time of Evaluation: 09:45 Objective - Vital Signs/Intake and Output Vital Signs (last 24 hours): Temp Pulse Resp BP Pulse Ox 97.1 F L 71 19 117/68 96 03/07/17 08:54 03/07/17 08:54 03/07/17 08:54 03/07/17 08:54 03/07/17 08:54 - Medications Medications: Current Medications Amlodipine Besylate (Norvasc) 10 mg PO DAILY [facility] Last Admin: 03/07/17 09:06 Dose: 10 mg Aspirin (Aspirin Chewable) 81 mg PO DAILY [facility] Last Admin: 03/07/17 09:06 Dose: 81 mg Atorvastatin Calcium (Lipitor) 40 mg PO HS [facility] Last Admin: 03/06/17 21:10 Dose: 40 mg Cyanocobalamin (Vitamin B12 1000 Mcg Tab) 1,000 mcg PO DAILY [facility] Last Admin: 03/07/17 09:07 Dose: 1,000 mcg Docusate Sodium (Colace) 100 mg PO BID [facility] Last Admin: 03/07/17 09:07 Dose: 100 mg Enoxaparin Sodium (Lovenox) 80 mg SC 1000,2200 [facility] PRN Reason: Protocol Last Admin: 03/07/17 09:08 Dose: 80 mg Famotidine (Pepcid) 20 mg PO BID [facility] Last Admin: 03/07/17 09:06 Dose: 20 mg Ferrous Sulfate (Feosol) 325 mg PO DAILY [facility] Last Admin: 03/07/17 09:06 Dose: 325 mg Folic Acid (Folic Acid) 1 mg PO DAILY [facility] Last Admin: 03/07/17 09:07 Dose: 1 mg Insulin Human Regular (Humulin R) 0 units SC 0630 [facility] PRN Reason: Protocol Last Admin: 03/07/17 07:00 Dose: Not Given Lactobacillus Acidophilus (Bacid Acidophilus) 1 cap PO BID [facility] Last Admin: 03/07/17 09:08 Dose: 1 cap Thiamine HCl (Vitamin B1 Tab) 100 mg PO DAILY [facility] Last Admin: 03/07/17 09:07 Dose: 100 mg Valsartan (Diovan) 320 mg PO DAILY [facility] Last Admin: 03/07/17 09:07 Dose: 320 mg Warfarin Sodium (Coumadin) 7.5 mg PO QD5 [facility] PRN Reason: Protocol Stop: 03/07/17 17:01 - Labs Labs: 03/04/17 08:30 03/01/17 06:40 PT 15.9 SECONDS (9.6-11.2) H 03/07/17 05:25 INR 1.53 (0.92-1.08) H 03/07/17 05:25 Assessment and Plan (1) Constipation Status: Chronic (2) Leg ulcer, left Status: Chronic (3) Hypertension Status: Chronic (4) CVA (cerebral vascular accident) Status: Chronic (5) UTI (urinary tract infection) Status: Acute (6) BPH (benign prostatic hyperplasia) Status: Acute
--- NOTE | 2017-03-07 13:53 | CP.PCM.PN ---
Subjective - Date & Time of Evaluation Date of Evaluation: 03/07/17 Time of Evaluation: 08:00 - Subjective Subjective: patient with generalized weakness , no other complaints Objective - Vital Signs/Intake and Output Vital Signs (last 24 hours): Temp Pulse Resp BP Pulse Ox 97.1 F L 71 19 117/68 96 03/07/17 08:54 03/07/17 08:54 03/07/17 08:54 03/07/17 08:54 03/07/17 08:54 - Medications Medications: Current Medications Amlodipine Besylate (Norvasc) 10 mg PO DAILY [facility] Last Admin: 03/07/17 09:06 Dose: 10 mg Aspirin (Aspirin Chewable) 81 mg PO DAILY [facility] Last Admin: 03/07/17 09:06 Dose: 81 mg Atorvastatin Calcium (Lipitor) 40 mg PO HS [facility] Last Admin: 03/06/17 21:10 Dose: 40 mg Cyanocobalamin (Vitamin B12 1000 Mcg Tab) 1,000 mcg PO DAILY [facility] Last Admin: 03/07/17 09:07 Dose: 1,000 mcg Docusate Sodium (Colace) 100 mg PO BID [facility] Last Admin: 03/07/17 09:07 Dose: 100 mg Enoxaparin Sodium (Lovenox) 80 mg SC 1000,2200 [facility] PRN Reason: Protocol Last Admin: 03/07/17 09:08 Dose: 80 mg Famotidine (Pepcid) 20 mg PO BID [facility] Last Admin: 03/07/17 09:06 Dose: 20 mg Ferrous Sulfate (Feosol) 325 mg PO DAILY [facility] Last Admin: 03/07/17 09:06 Dose: 325 mg Folic Acid (Folic Acid) 1 mg PO DAILY [facility] Last Admin: 03/07/17 09:07 Dose: 1 mg Insulin Human Regular (Humulin R) 0 units SC 0630 [facility] PRN Reason: Protocol Last Admin: 03/07/17 07:00 Dose: Not Given Lactobacillus Acidophilus (Bacid Acidophilus) 1 cap PO BID [facility] Last Admin: 03/07/17 09:08 Dose: 1 cap Thiamine HCl (Vitamin B1 Tab) 100 mg PO DAILY [facility] Last Admin: 03/07/17 09:07 Dose: 100 mg Valsartan (Diovan) 320 mg PO DAILY [facility] Last Admin: 03/07/17 09:07 Dose: 320 mg Warfarin Sodium (Coumadin) 2.5 mg PO QD5 [facility] PRN Reason: Protocol Stop: 03/07/17 17:01 Warfarin Sodium (Coumadin) 5 mg PO QD5 [facility] Stop: 03/07/17 17:01 - Labs Labs: 03/04/17 08:30 03/01/17 06:40 PT 15.9 SECONDS (9.6-11.2) H 03/07/17 05:25 INR 1.53 (0.92-1.08) H 03/07/17 05:25 - Head Exam Head Exam: ATRAUMATIC, NORMAL INSPECTION, NORMOCEPHALIC - Eye Exam Eye Exam: EOMI, Normal appearance, PERRL Pupil Exam: NORMAL ACCOMODATION - ENT Exam ENT Exam: Mucous Membranes Moist, Normal Exam - Respiratory Exam Respiratory Exam: NORMAL BREATHING PATTERN - Cardiovascular Exam Cardiovascular Exam: REGULAR RHYTHM - GI/Abdominal Exam GI & Abdominal Exam: Normal Bowel Sounds - Rectal Exam Rectal Exam: NORMAL INSPECTION - Exam External exam: NORMAL EXTERNAL EXAM - Back Exam Back Exam: NORMAL INSPECTION - Neurological Exam Neurological Exam: Alert, Awake Neuro motor strength exam: Left Upper Extremity: 3, Right Upper Extremity: 3, Left Lower Extremity: 3, Right Lower Extremity: 3 - Psychiatric Exam Psychiatric exam: Normal Affect, Normal Mood - Skin Skin Exam: Dry, Normal Color Assessment and Plan (1) Dizzinesses Status: Acute (2) Malignant hypertension Status: Acute (3) Constipation Status: Chronic (4) TIA (transient ischemic attack) Assessment & Plan: plan for physical, occupational, rec therapy team conference team conferene for am Status: Acute (5) Leg ulcer, left Status: Chronic (6) Infected wound Status: Acute (7) Effusion of right knee Status: Acute (8) CVA (cerebral vascular accident) Status: Chronic
--- NOTE | 2017-03-07 16:56 | RAD ---
PROCEDURE: Modified barium swallow study. HISTORY: DYSPHAGIA EVAL COMPARISON: None available. TECHNIQUE: Under fluoroscopic guidance, barium meals of various consistency were administered to the patient by the speech pathologist. FINDINGS: No penetration or aspiration was observed during this study. IMPRESSION: No penetration or aspiration observed. Please refer to the detailed report and recommendations of the speech pathologist.
[2017-03-08] MEDS: Insulin Regular 100 units/ml SC SCH (06:31)
[2017-03-08 06:50] LABS: HEMATOCRIT 32.3 % (35.0-51.0); MEAN CELL VOLUME 84.9 fl (80.0-94.0); MEAN CORPUSCULAR HEMOGLOBIN 26.9 pg (27.0-31.0); MEAN CORPUSCULAR HGB CONC 31.7 g/dL (33.0-37.0); RED CELL DISTRIBUTION WIDTH 15.9 % (11.5-14.5); WHITE BLOOD COUNT 6.9 K/uL (4.8-10.8)
--- NOTE | 2017-03-08 08:11 | CP.PCM.PN ---
Subjective - Date & Time of Evaluation Date of Evaluation: 03/08/17 Time of Evaluation: 08:00 - Subjective Subjective: 71 yo male pt S&E at bedside in rehab this morning for f/u left leg ulceration. PPt seen resting comfortably in bed at time of visit, denies any acute overnight events. Does complain of some mild tenderness to the left leg today from the wound. Says he received pain mediation which helped but is asking for another pill. Denies any other complaints at this time. Denies f/n/v/c/sob/cp. Objective - Vital Signs/Intake and Output Vital Signs (last 24 hours): Temp Pulse Resp BP Pulse Ox 97.9 F 71 20 127/75 98 03/07/17 20:39 03/07/17 20:39 03/07/17 20:39 03/07/17 20:39 03/07/17 20:39 - Medications Medications: Current Medications Acetaminophen (Tylenol 325mg Tab) 650 mg PO Q6 PRN PRN Reason: Pain 4-10 Last Admin: 03/08/17 00:18 Dose: 650 mg Amlodipine Besylate (Norvasc) 10 mg PO DAILY [facility] Last Admin: 03/07/17 09:06 Dose: 10 mg Aspirin (Aspirin Chewable) 81 mg PO DAILY [facility] Last Admin: 03/07/17 09:06 Dose: 81 mg Atorvastatin Calcium (Lipitor) 40 mg PO HS [facility] Last Admin: 03/07/17 21:20 Dose: 40 mg Cyanocobalamin (Vitamin B12 1000 Mcg Tab) 1,000 mcg PO DAILY [facility] Last Admin: 03/07/17 09:07 Dose: 1,000 mcg Docusate Sodium (Colace) 100 mg PO BID [facility] Last Admin: 03/07/17 16:06 Dose: 100 mg Enoxaparin Sodium (Lovenox) 80 mg SC 1000,2200 [facility] PRN Reason: Protocol Last Admin: 03/07/17 21:20 Dose: 80 mg Famotidine (Pepcid) 20 mg PO BID [facility] Last Admin: 03/07/17 16:06 Dose: 20 mg Ferrous Sulfate (Feosol) 325 mg PO DAILY [facility] Last Admin: 03/07/17 09:06 Dose: 325 mg Folic Acid (Folic Acid) 1 mg PO DAILY [facility] Last Admin: 03/07/17 09:07 Dose: 1 mg Insulin Human Regular (Humulin R) 0 units SC 0630 [facility] PRN Reason: Protocol Last Admin: 03/08/17 06:31 Dose: Not Given Lactobacillus Acidophilus (Bacid Acidophilus) 1 cap PO BID [facility] Last Admin: 03/07/17 16:12 Dose: 1 cap Thiamine HCl (Vitamin B1 Tab) 100 mg PO DAILY [facility] Last Admin: 03/07/17 09:07 Dose: 100 mg Valsartan (Diovan) 320 mg PO DAILY [facility] Last Admin: 03/07/17 09:07 Dose: 320 mg - Labs Labs: 03/08/17 05:20 03/01/17 06:40 PT 21.4 SECONDS (9.6-11.2) H D 03/08/17 05:20 INR 2.06 (0.92-1.08) H D 03/08/17 05:20 - Constitutional Appears: Non-toxic, No Acute Distress - Extremities Exam Extremities Exam: absent: Calf Tenderness Additional comments: LLE exam: Compressions stockings donned to both legs, dressing to left leg appears c/d/i VASC- DP pulses palpable 1/4 BL, PT pulses non-palpable bl, skin temp runs warm to cool bl, cft <3 sec to digits x 10, no pedal edema appreciated NEURO- gross pedal sensation is intact bl DERM- ulceration to distal lateral aspect of leg appears closed, no drainage, malodor, no probe to bone, no acute signs infection, surrounding skin with hypo- pigmentation of previous skin graft noted appears 100% healed ORTHO- no pain to palpation wound - Neurological Exam Neurological Exam: Alert, Awake, Oriented x3 Assessment and Plan - Assessment and Plan (Free Text) Assessment: 71 yo male patient w/ pmhx PVD, HTN, CVA, recent TIA, chronic left leg ulceration (non-infected) Plan: -Pt S&E at bedside -Plan discussed w/ attending Dr. Hernandez -Chart, labs, vitals reviewed: afebrile, no leukocystosis -Left leg ulceration cleansed with normal saline, xeroform, DSD, kerlix applied. Compression stocking reapplied -Dressing to be chanted every other day. Use cast protective bag for showering -Stable per podiatry -Podiatry will continue to follow while pt remains in house
[2017-03-08] MEDS: Lactobacillus Acidophilus 500 MU Cap PO SCH ×2 (08:42→17:15)
--- NOTE | 2017-03-08 10:55 | CP.PCM.PN ---
Subjective - Date & Time of Evaluation Date of Evaluation: 03/08/17 Time of Evaluation: 09:35 Objective - Vital Signs/Intake and Output Vital Signs (last 24 hours): Temp Pulse Resp BP Pulse Ox 97.7 F 80 20 138/88 97 03/08/17 08:27 03/08/17 08:41 03/08/17 08:27 03/08/17 08:41 03/08/17 08:27 - Medications Medications: Current Medications Acetaminophen (Tylenol 325mg Tab) 650 mg PO Q6 PRN PRN Reason: Pain 4-10 Last Admin: 03/08/17 09:42 Dose: 650 mg Amlodipine Besylate (Norvasc) 10 mg PO DAILY [facility] Last Admin: 03/08/17 08:41 Dose: 10 mg Aspirin (Aspirin Chewable) 81 mg PO DAILY [facility] Last Admin: 03/08/17 08:41 Dose: 81 mg Atorvastatin Calcium (Lipitor) 40 mg PO HS [facility] Last Admin: 03/07/17 21:20 Dose: 40 mg Cyanocobalamin (Vitamin B12 1000 Mcg Tab) 1,000 mcg PO DAILY [facility] Last Admin: 03/08/17 08:41 Dose: 1,000 mcg Docusate Sodium (Colace) 100 mg PO BID [facility] Last Admin: 03/08/17 08:39 Dose: 100 mg Enoxaparin Sodium (Lovenox) 80 mg SC 1000,2200 [facility] PRN Reason: Protocol Last Admin: 03/07/17 21:20 Dose: 80 mg Famotidine (Pepcid) 20 mg PO BID [facility] Last Admin: 03/08/17 08:41 Dose: 20 mg Ferrous Sulfate (Feosol) 325 mg PO DAILY [facility] Last Admin: 03/08/17 08:40 Dose: 325 mg Folic Acid (Folic Acid) 1 mg PO DAILY [facility] Last Admin: 03/08/17 08:41 Dose: 1 mg Insulin Human Regular (Humulin R) 0 units SC 0630 [facility] PRN Reason: Protocol Last Admin: 03/08/17 06:31 Dose: Not Given Lactobacillus Acidophilus (Bacid Acidophilus) 1 cap PO BID [facility] Last Admin: 03/08/17 08:42 Dose: 1 cap Thiamine HCl (Vitamin B1 Tab) 100 mg PO DAILY [facility] Last Admin: 03/08/17 08:41 Dose: 100 mg Valsartan (Diovan) 320 mg PO DAILY [facility] Last Admin: 04/26/17 08:39 Dose: 320 mg - Labs Labs: 03/08/17 05:20 03/01/17 06:40 PT 21.4 SECONDS (9.6-11.2) H D 03/08/17 05:20 INR 2.06 (0.92-1.08) H D 03/08/17 05:20 Assessment and Plan (1) Constipation Status: Chronic (2) Leg ulcer, left Status: Chronic (3) Hypertension Status: Chronic (4) CVA (cerebral vascular accident) Status: Chronic (5) UTI (urinary tract infection) Status: Acute (6) BPH (benign prostatic hyperplasia) Status: Acute
[2017-03-08] MEDS: Enoxaparin 80 mg Syringe SC SCH (11:00)
--- NOTE | 2017-03-08 12:08 | PSY.TMCNF ---
Nursing - Vital Signs Vital Signs (Last 8 hours): Vital Signs 03/08/17 03/08/17 08:27 08:41 Temperature 97.7 F Pulse Rate 80 80 Respiratory 20 Rate Blood Pressure 138/88 138/88 O2 Sat by Pulse 97 Oximetry Pain: 0 - Precautions: Precautions: Fall Prevention, Aspiration, Cardiac/Pulmonary, Pressure Ulcer - Medications/Other Issues Comment: Pt at moderate nutritional risk. goals: 1. Pt to consume 75-100% of meals. 2. Blood glucoses to be between 70-180 mg/dl. Follow-up due on 2016 - Consults Comment: Dr. Su, Dr. Gaytan, Dr. Mejía - Wound Left Lower Calf Wound Type: Stasis Ulcer Wound Shape: Irregular Wound Dressing Status: Dry & Intact Dressing Changed: No Wound Primary Dressing Type: Medicated Gauze Pads Wound Secondary Dressing Type: Gauze Roll/Wrap - Toileting Toileting: Dependent - Bladder Management Bladder Pattern: Incontinent Voiding Method: Urinal - Bowel Management Bowel Pattern: Constipated - Transfers Transfers: Moderate Assistance - ADL's ADL's: Maximal Assistance - Patient/Family Teaching Comments: CARE POST CVA AND SAFETY PRECAUTIONS - Goals/Time Frame Comments: Pt was brought into recreation room following PT session. Pt agreeable to participate in session. Pt was able to identify his leisure interests such as watching television, reading, spending time with friends, going out for walks/exercising, and shopping. Pt reported that he lived with his Mother who recently in August 2016. Pt reported his mother who was an RN would assist pt at home with care and medications. Pt has one son who lives in [place]. Pt reported that his deficits from this current CVA is his speech. Pt stated that the L side weakness is from prior CVA in 2000. Pt presented stable-positive mood and would benefit from recreation therapy sessions. Physical Therapy - Bed Mobility Bed Mobility: Moderate Assistance, Maximum Assistance - Transfers Wheelchair to Mat: Moderate Assistance, Maximum Assistance Sit to Stand: Moderate Assistance, Maximum Assistance - Ambulation Orthoses: n/a. -pt reports he previously had a LLE brace but he does not utilize it anymore Comment: prior to onset of gluteal pain (last week and Monday) patient able to ambulate 150 feet with WBQC with min A with impaired postural control, and impaired L sided motion. --due to pain, gait has been deferred as patient unable to bear weight - Stair Negotiation Comment: deferred due to recent pain. -prior to pain onset, 4 steps with mod A with single rail - Standing Balance Static Stand: Maximal Assistance Dynamic Stand: Maximal Assistance - Pain Pain (assessed during therapy session): 8 Management Techniques: Heat, Massage, Position Change, Relaxation Techniques, Exercise, Inactivity Comment: L gluteal discomfort - Insight/Carryover Insight/Carryover: Fair - Patient/Family Education Comment: -safety, therapy schedule, therapy goals, stroke recovery, use of call tinsley for assistance, mobility, safety with transfers, POC - Assessment/Plan Assessment: Mr. Pascual presents today with increased discomfort/pain in the left gluteal region which he reports stabbing in nature. PT spoke to RN Sravani who reports she is awaiting orders for pain medication from Dr. Duvall. Prior to onset of pain noted today, patient was able to perform to mobility with min A for mobility, CG for bed mobility and mod A for stair training. Patient was making slow progress in therapy but was improving in status. Due to increased pain, patient requires max A for all mobility for safety with reduced tolerance to activity. Patient unable to ambulate due to pain with LLE weight bearing. Patient had some relief with ice and with improved positioning with changing of WC cushion. RN aware of patient's pain. PT recommends continued skilled PT with immediate emphasis on relieving pain and then continued progress with improving independence and safety with mobility to reduce burden of care. PT recommends discharge to [facility] to continue addressing impairments s/p CVA to reduce burden of care. - Goals Timeframe: 1 week Goals: negotiate 4 training steps with min A with single R rail. contact guard with bed/mat mobility. CG with sit to/from stand and SPT. ambulate 150 feet with NBQC with CG - Provider Therapist: Laura Green PT, DPT License Number: [id number] Occupational Therapy - Arousal/Attention/Orientation Patient Orientation: Person, Place, Time, Appropriate to Age, Appropriate to Situation - ADL/IADL Self Feeding: Supervision, Set-up Help Grooming: Supervision, Set-up Help Bathing-Upper Extremity: Contact Guard Bathing-Lower Extremity: Minimal Assistance Dressing-Upper Extremity: Moderate Assistance Dressing-Lower Extremity: Maximum Assistance - Sitting Balance Static Sitting: Independent without upper extremity support Dynamic Sitting: Reaches across midline, Reaches out of base of support, Requires supervision - Transfers Wheelchair to Bed Transfers: Minimal Assistance, Moderate Assistance Toilet Transfers: Minimal Assistance, Moderate Assistance Tub Transfers: Moderate Assistance, Maximum Assistance Comment: Pt has a tub-shower with curtain. Pt has a shower-chair at the home. Recommend use of tub-bench at this time. Pt trialed tub-bench with mod/max assist. - Wheelchair Management Distance (ft.): 0 - Upper Extremity Status Right Upper Extremity Comment: RUE WFL t/o Left Upper Extremity Comment: LUE impaired t/o: Pt's L shoulder is 2-/5 to 3-/5 ; elbow flexors are 3-/5; elbow extensors 2-/5; wrist flexors 2-/5; wrist extensors 2-/5. Pt noted with flexor tone t/o LUE. - Pain Pain (assessed during therapy session): 8 Alleviating Techniques: Heat, Massage, Position Change, Relaxation Techniques, Exercise, Inactivity Comment: L gluteal discomfort - Insight/Carryover Insight/Carryover: Fair - Patient/Family Education Comment: -safety, therapy schedule, therapy goals, stroke recovery, use of call tinsley for assistance, mobility, safety with transfers, POC - Assessment/Plan Assessment: Mr. Pascual presents today with increased discomfort/pain in the left gluteal region which he reports stabbing in nature. PT spoke to JO Lassiter who reports she is awaiting orders for pain medication from Dr. Duvall. Prior to onset of pain noted today, patient was able to perform to mobility with min A for mobility, CG for bed mobility and mod A for stair training. Patient was making slow progress in therapy but was improving in status. Due to increased pain, patient requires max A for all mobility for safety with reduced tolerance to activity. Patient unable to ambulate due to pain with LLE weight bearing. Patient had some relief with ice and with improved positioning with changing of WC cushion. RN aware of patient's pain. PT recommends continued skilled PT with immediate emphasis on relieving pain and then continued progress with improving independence and safety with mobility to reduce burden of care. PT recommends discharge to [facility] to continue addressing impairments s/p CVA to reduce burden of care. - Goals Timeframe: 1 week Goals: negotiate 4 training steps with min A with single R rail. contact guard with bed/mat mobility. CG with sit to/from stand and SPT. ambulate 150 feet with NBQC with CG - Provider Therapist: Renetta TIRADO License Number: [id number] Speech Therapy - Consult Information Patient on Program: Yes Medical Diagnosis: CVA Treatment Diagnosis: moderate dysphagia. mild dysarthria - Assessment Speech/Articulation Impairment: Mild Dysphagia/Swallowing Impairment: Moderate - Plan Assessment: Mr. Pascual presents today with increased discomfort/pain in the left gluteal region which he reports stabbing in nature. PT spoke to JO Lassiter who reports she is awaiting orders for pain medication from Dr. Duvall. Prior to onset of pain noted today, patient was able to perform to mobility with min A for mobility, CG for bed mobility and mod A for stair training. Patient was making slow progress in therapy but was improving in status. Due to increased pain, patient requires max A for all mobility for safety with reduced tolerance to activity. Patient unable to ambulate due to pain with LLE weight bearing. Patient had some relief with ice and with improved positioning with changing of WC cushion. RN aware of patient's pain. PT recommends continued skilled PT with immediate emphasis on relieving pain and then continued progress with improving independence and safety with mobility to reduce burden of care. PT recommends discharge to [facility] to continue addressing impairments s/p CVA to reduce burden of care. - Provider Therapist: Niesha Russ License Number: [id number] Recreational Therapy - Participation Participation: Participates in Individual and/or Group Sessions - Attendance Attendance: 3-5 times per week - Activities Leisure Activities: Cards and Games - Socialization Level of Socialization: Initiates/interacts freely with care givers and peer - Diversional Time Diversional Time: television - Assessment Assessment/Plan: Mr. Pascual presents today with increased discomfort/pain in the left gluteal region which he reports stabbing in nature. PT spoke to JO Lassiter who reports she is awaiting orders for pain medication from Dr. Duvall. Prior to onset of pain noted today, patient was able to perform to mobility with min A for mobility, CG for bed mobility and mod A for stair training. Patient was making slow progress in therapy but was improving in status. Due to increased pain, patient requires max A for all mobility for safety with reduced tolerance to activity. Patient unable to ambulate due to pain with LLE weight bearing. Patient had some relief with ice and with improved positioning with changing of WC cushion. RN aware of patient's pain. PT recommends continued skilled PT with immediate emphasis on relieving pain and then continued progress with improving independence and safety with mobility to reduce burden of care. PT recommends discharge to [facility] to continue addressing impairments s/p CVA to reduce burden of care. - Provider Therapist: Krissy Galvez, TRAFFIC CONTROLLER CABLE #[id number] Nutrition - Current Diet Current Diet/ Supplement/ Feedings: Pureed [place] Thick Diet - Appetite Percent Meal Consumed: 75-100% - Comments Comments: CARE POST CVA AND SAFETY PRECAUTIONS - Assessment/Goals/Time Frame Assessment/Goals/Time Frame: Pt at moderate nutritional risk. goals: 1. Pt to consume 75-100% of meals. 2. Blood glucoses to be between 70-180 mg/dl. Follow-up due on 03/08/2017 - Provider Provider: Keri Branch RD Case Management - Psychosocial Assessment Support Systems: Patient's son Tavares Pascual- [phone] Psychological Interventions/Needs: Patient is alert and oriented x3 and able to verbalize needs. Patient is pleasant, cooperative and motivated for therapy Discharge Concerns: Patient lives alone with limited support during the day. Patient with over 20 steps to negotiate at home. Patient on puree/nectar diet Patient/Family Meeting: CM met with patient and rehab team. Intervention/Goal/Outcome:: 1. Goal: Supervision overall. 2. Plan: Home vs [facility]? 3. Patient to be reteamed for most appropriate discharge disposition and date. 4. caregiver training? 5. continued emotional support. 6. DME needs. 7. f/u appts. - Discharge Plan Discharge Plan: Home with services, Subacute care - Provider Provider: TERENCE Grande, BUILDING MAINTENANCE CUSTODIAN License Number: [id number] Rehabilitation Plan - Treatment Plan Treatment Plan: Physical Therapy, Occupational Therapy, Speech, Dietary, Patient /Family Education - Recommendation Recommendation: Physical Therapy, Occupational Therapy, Speech, Dietary, Patient /Family Education - Discharge Plan Discharge to: Subacute (03/24)
--- NOTE | 2017-03-08 14:55 | CP.PCM.PN ---
Subjective - Date & Time of Evaluation Date of Evaluation: 03/08/17 Time of Evaluation: 12:00 - Subjective Subjective: patient with occasional discomfort left gluteal region Objective - Vital Signs/Intake and Output Vital Signs (last 24 hours): Temp Pulse Resp BP Pulse Ox 97.7 F 80 20 138/88 97 03/08/17 08:27 03/08/17 08:41 03/08/17 08:27 03/08/17 08:41 03/08/17 08:27 - Medications Medications: Current Medications Acetaminophen (Tylenol 325mg Tab) 650 mg PO Q6 PRN PRN Reason: Pain 4-10 Last Admin: 03/08/17 09:42 Dose: 650 mg Amlodipine Besylate (Norvasc) 10 mg PO DAILY [facility] Last Admin: 03/08/17 08:41 Dose: 10 mg Aspirin (Aspirin Chewable) 81 mg PO DAILY [facility] Last Admin: 03/08/17 08:41 Dose: 81 mg Atorvastatin Calcium (Lipitor) 40 mg PO HS [facility] Last Admin: 03/07/17 21:20 Dose: 40 mg Cyanocobalamin (Vitamin B12 1000 Mcg Tab) 1,000 mcg PO DAILY [facility] Last Admin: 03/08/17 08:41 Dose: 1,000 mcg Docusate Sodium (Colace) 100 mg PO BID [facility] Last Admin: 03/08/17 08:39 Dose: 100 mg Famotidine (Pepcid) 20 mg PO BID [facility] Last Admin: 03/08/17 08:41 Dose: 20 mg Ferrous Sulfate (Feosol) 325 mg PO DAILY [facility] Last Admin: 03/08/17 08:40 Dose: 325 mg Folic Acid (Folic Acid) 1 mg PO DAILY [facility] Last Admin: 03/08/17 08:41 Dose: 1 mg Ibuprofen (Motrin Tab) 600 mg PO Q8 [facility] Last Admin: 03/08/17 13:53 Dose: 600 mg Insulin Human Regular (Humulin R) 0 units SC 0630 [facility] PRN Reason: Protocol Last Admin: 03/08/17 06:31 Dose: Not Given Lactobacillus Acidophilus (Bacid Acidophilus) 1 cap PO BID [facility] Last Admin: 03/08/17 08:42 Dose: 1 cap Thiamine HCl (Vitamin B1 Tab) 100 mg PO DAILY [facility] Last Admin: 03/08/17 08:41 Dose: 100 mg Valsartan (Diovan) 320 mg PO DAILY [facility] Last Admin: 03/08/17 08:39 Dose: 320 mg Warfarin Sodium (Coumadin) 7.5 mg PO QD5 [facility] PRN Reason: Protocol Stop: 03/08/17 17:01 - Labs Labs: 03/08/17 05:20 03/01/17 06:40 PT 21.4 SECONDS (9.6-11.2) H D 03/08/17 05:20 INR 2.06 (0.92-1.08) H D 03/08/17 05:20 - Head Exam Head Exam: ATRAUMATIC, NORMAL INSPECTION - Eye Exam Eye Exam: EOMI, Normal appearance Pupil Exam: NORMAL ACCOMODATION - ENT Exam ENT Exam: Mucous Membranes Moist, Normal Exam - Neck Exam Neck Exam: Normal Inspection - Respiratory Exam Respiratory Exam: NORMAL BREATHING PATTERN - Cardiovascular Exam Cardiovascular Exam: REGULAR RHYTHM - GI/Abdominal Exam GI & Abdominal Exam: Normal Bowel Sounds - Rectal Exam Rectal Exam: NORMAL INSPECTION - Exam External exam: NORMAL EXTERNAL EXAM - Extremities Exam Extremities Exam: Normal Capillary Refill, Normal Inspection - Neurological Exam Neurological Exam: Alert, Awake Neuro motor strength exam: Left Upper Extremity: 3, Right Upper Extremity: 3, Left Lower Extremity: 3, Right Lower Extremity: 3 - Psychiatric Exam Psychiatric exam: Normal Affect, Normal Mood - Skin Skin Exam: Dry, Intact Assessment and Plan (1) Dizzinesses Status: Acute (2) Malignant hypertension Status: Acute (3) Constipation Status: Chronic (4) TIA (transient ischemic attack) Assessment & Plan: plan for physcial, occupational, rec therapy status post team conference, speech therapy address swallong needs and try different kinds of consistency Monitor bowel and bladder Status: Acute (5) Leg ulcer, left Status: Chronic (6) Infected wound Status: Acute (7) Effusion of right knee Status: Acute (8) CVA (cerebral vascular accident) Status: Chronic
[2017-03-09] MEDS: Insulin Regular 100 units/ml SC SCH (06:16)
[2017-03-09] MEDS: Lactobacillus Acidophilus 500 MU Cap PO SCH (09:05)
--- NOTE | 2017-03-09 23:41 | CP.PCM.PN ---
Objective - Vital Signs/Intake and Output Vital Signs (last 24 hours): Temp Pulse Resp BP Pulse Ox 97.2 F L 70 20 121/68 97 03/09/17 20:37 03/09/17 20:37 03/09/17 20:37 03/09/17 20:37 03/09/17 20:37 - Medications Medications: Current Medications Acetaminophen (Tylenol 325mg Tab) 650 mg PO Q6 PRN PRN Reason: Pain 4-10 Last Admin: 03/08/17 09:42 Dose: 650 mg Amlodipine Besylate (Norvasc) 10 mg PO DAILY [facility] Last Admin: 03/09/17 09:07 Dose: 10 mg Aspirin (Aspirin Chewable) 81 mg PO DAILY [facility] Last Admin: 03/09/17 09:08 Dose: 81 mg Atorvastatin Calcium (Lipitor) 40 mg PO HS [facility] Last Admin: 03/09/17 21:29 Dose: 40 mg Cyanocobalamin (Vitamin B12 1000 Mcg Tab) 1,000 mcg PO DAILY [facility] Last Admin: 03/09/17 09:07 Dose: 1,000 mcg Docusate Sodium (Colace) 100 mg PO BID [facility] Last Admin: 03/09/17 17:52 Dose: 100 mg Famotidine (Pepcid) 20 mg PO BID [facility] Last Admin: 03/09/17 17:52 Dose: 20 mg Ferrous Sulfate (Feosol) 325 mg PO DAILY [facility] Last Admin: 03/09/17 09:06 Dose: 325 mg Folic Acid (Folic Acid) 1 mg PO DAILY [facility] Last Admin: 03/09/17 09:07 Dose: 1 mg Ibuprofen (Motrin Tab) 600 mg PO Q8 [facility] Last Admin: 03/09/17 21:29 Dose: 600 mg Insulin Human Regular (Humulin R) 0 units NE 0630 [facility] PRN Reason: Protocol Last Admin: 03/09/17 06:16 Dose: Not Given Thiamine HCl (Vitamin B1 Tab) 100 mg PO DAILY [facility] Last Admin: 03/09/17 09:07 Dose: 100 mg Valsartan (Diovan) 320 mg PO DAILY [facility] Last Admin: 03/09/17 09:06 Dose: 320 mg - Labs Labs: 03/08/17 05:20 03/01/17 06:40 PT 20.8 SECONDS (9.6-11.2) H 03/09/17 05:20 INR 2.00 (0.92-1.08) H 03/09/17 05:20 Assessment and Plan (1) Constipation Status: Chronic (2) Leg ulcer, left Status: Chronic (3) Hypertension Status: Chronic (4) CVA (cerebral vascular accident) Status: Chronic (5) UTI (urinary tract infection) Status: Acute (6) BPH (benign prostatic hyperplasia) Status: Acute
[2017-03-10] MEDS: Insulin Regular 100 units/ml SC SCH (06:13)
--- NOTE | 2017-03-10 14:19 | CP.PCM.PN ---
Subjective - Date & Time of Evaluation Date of Evaluation: 03/10/17 Time of Evaluation: 10:00 - Subjective Subjective: less pain in the muscles feels better Objective - Vital Signs/Intake and Output Vital Signs (last 24 hours): Temp Pulse Resp BP Pulse Ox 98 F 80 20 120/70 97 03/10/17 13:46 03/10/17 13:46 03/10/17 13:46 03/10/17 13:46 03/10/17 08:12 - Medications Medications: Current Medications Acetaminophen (Tylenol 325mg Tab) 650 mg PO Q6 PRN PRN Reason: Pain 4-10 Last Admin: 03/08/17 09:42 Dose: 650 mg Amlodipine Besylate (Norvasc) 10 mg PO DAILY [facility] Last Admin: 03/10/17 08:53 Dose: 10 mg Aspirin (Aspirin Chewable) 81 mg PO DAILY [facility] Last Admin: 03/10/17 08:53 Dose: 81 mg Atorvastatin Calcium (Lipitor) 40 mg PO HS [facility] Last Admin: 03/09/17 21:29 Dose: 40 mg Cyanocobalamin (Vitamin B12 1000 Mcg Tab) 1,000 mcg PO DAILY [facility] Last Admin: 03/10/17 08:51 Dose: 1,000 mcg Docusate Sodium (Colace) 100 mg PO BID [facility] Last Admin: 03/10/17 08:52 Dose: 100 mg Famotidine (Pepcid) 20 mg PO BID [facility] Last Admin: 03/10/17 08:53 Dose: 20 mg Ferrous Sulfate (Feosol) 325 mg PO DAILY [facility] Last Admin: 03/10/17 08:51 Dose: 325 mg Folic Acid (Folic Acid) 1 mg PO DAILY [facility] Last Admin: 03/10/17 08:51 Dose: 1 mg Ibuprofen (Motrin Tab) 600 mg PO Q8 [facility] Last Admin: 03/10/17 13:46 Dose: 600 mg Insulin Human Regular (Humulin R) 0 units SC 0630 [facility] PRN Reason: Protocol Last Admin: 03/10/17 06:13 Dose: Not Given Thiamine HCl (Vitamin B1 Tab) 100 mg PO DAILY [facility] Last Admin: 03/10/17 08:53 Dose: 100 mg Valsartan (Diovan) 320 mg PO DAILY [facility] Last Admin: 03/10/17 08:52 Dose: 320 mg Warfarin Sodium (Coumadin) 7.5 mg PO ONCE ONE PRN Reason: Protocol Stop: 03/10/17 17:01 - Labs Labs: 03/08/17 05:20 03/01/17 06:40 PT 21.3 SECONDS (9.6-11.2) H 03/10/17 07:43 INR 2.05 (0.92-1.08) H 03/10/17 07:43 - Head Exam Head Exam: ATRAUMATIC, NORMAL INSPECTION, NORMOCEPHALIC - Eye Exam Eye Exam: EOMI, Normal appearance, PERRL Pupil Exam: NORMAL ACCOMODATION - ENT Exam ENT Exam: Mucous Membranes Moist, Normal Exam - Respiratory Exam Respiratory Exam: NORMAL BREATHING PATTERN - Cardiovascular Exam Cardiovascular Exam: REGULAR RHYTHM - GI/Abdominal Exam GI & Abdominal Exam: Soft - Exam External exam: NORMAL EXTERNAL EXAM - Extremities Exam Extremities Exam: Normal Capillary Refill, Normal Inspection - Neurological Exam Neurological Exam: Alert, Awake Neuro motor strength exam: Left Upper Extremity: 3, Right Upper Extremity: 3, Left Lower Extremity: 3, Right Lower Extremity: 3 - Psychiatric Exam Psychiatric exam: Normal Affect, Normal Mood - Skin Skin Exam: Dry, Intact Assessment and Plan (1) Dizzinesses Status: Acute (2) Malignant hypertension Status: Acute (3) Constipation Status: Chronic (4) TIA (transient ischemic attack) Assessment & Plan: continue with physical, occupational therapy, rec therapy . monitor skin, and left muscle discomfort monitor labs Status: Acute (5) Leg ulcer, left Status: Chronic (6) Infected wound Status: Acute (7) Effusion of right knee Status: Acute (8) CVA (cerebral vascular accident) Status: Chronic
--- NOTE | 2017-03-10 18:37 | CP.PCM.PN ---
Subjective - Date & Time of Evaluation Date of Evaluation: 03/10/17 Time of Evaluation: 17:00 - Subjective Subjective: 71 yo male pt S&E at bedside in rehab for f/u left leg ulceration. Pt seen resting comfortably in wheelchair at time of visit. Denies pain or discomfort to the leg at this time. Says rehab is going well and has been able to transition to chopped solids. Denies f/n/v/c/sob/cp. Denies any other problems at this time. Objective - Vital Signs/Intake and Output Vital Signs (last 24 hours): Temp Pulse Resp BP Pulse Ox 98 F 74 20 120/70 100 03/10/17 13:46 03/10/17 15:30 03/10/17 13:46 03/10/17 13:46 03/10/17 15:30 - Medications Medications: Current Medications Acetaminophen (Tylenol 325mg Tab) 650 mg PO Q6 PRN PRN Reason: Pain 4-10 Last Admin: 03/08/17 09:42 Dose: 650 mg Amlodipine Besylate (Norvasc) 10 mg PO DAILY [facility] Last Admin: 03/10/17 08:53 Dose: 10 mg Aspirin (Aspirin Chewable) 81 mg PO DAILY [facility] Last Admin: 03/10/17 08:53 Dose: 81 mg Atorvastatin Calcium (Lipitor) 40 mg PO HS [facility] Last Admin: 03/09/17 21:29 Dose: 40 mg Cyanocobalamin (Vitamin B12 1000 Mcg Tab) 1,000 mcg PO DAILY [facility] Last Admin: 03/10/17 08:51 Dose: 1,000 mcg Docusate Sodium (Colace) 100 mg PO BID [facility] Last Admin: 03/10/17 17:20 Dose: 100 mg Famotidine (Pepcid) 20 mg PO BID [facility] Last Admin: 03/10/17 17:22 Dose: 20 mg Ferrous Sulfate (Feosol) 325 mg PO DAILY [facility] Last Admin: 03/10/17 08:51 Dose: 325 mg Folic Acid (Folic Acid) 1 mg PO DAILY [facility] Last Admin: 03/10/17 08:51 Dose: 1 mg Ibuprofen (Motrin Tab) 600 mg PO Q8 [facility] Last Admin: 03/10/17 13:46 Dose: 600 mg Insulin Human Regular (Humulin R) 0 units SC 0630 [facility] PRN Reason: Protocol Last Admin: 03/10/17 06:13 Dose: Not Given Thiamine HCl (Vitamin B1 Tab) 100 mg PO DAILY [facility] Last Admin: 03/10/17 08:53 Dose: 100 mg Valsartan (Diovan) 320 mg PO DAILY [facility] Last Admin: 03/10/17 08:52 Dose: 320 mg - Labs Labs: 03/08/17 05:20 03/01/17 06:40 PT 21.3 SECONDS (9.6-11.2) H 03/10/17 07:43 INR 2.05 (0.92-1.08) H 03/10/17 07:43 - Constitutional Appears: Well, Non-toxic, No Acute Distress - Extremities Exam Extremities Exam: absent: Calf Tenderness Additional comments: LLE exam: Dressing to left leg appears c/d/i. VASC- DP pulses palpable 1/4 BL, PT pulses non-palpable bl, skin temp runs warm to cool bl, cft <3 sec to digits x 10, no pedal edema appreciated NEURO- gross pedal sensation is intact bl DERM- ulceration to distal lateral aspect of leg appears closed, no drainage, malodor, no probe to bone, no acute signs infection, surrounding skin with hypo- pigmentation of previous skin graft noted appears 100% healed ORTHO- no pain to palpation wound - Neurological Exam Neurological Exam: Alert, Awake, Oriented x3 - Psychiatric Exam Psychiatric exam: Normal Affect, Normal Mood Assessment and Plan - Assessment and Plan (Free Text) Assessment: 71 yo male patient w/ pmhx PVD, HTN, CVA, recent TIA, chronic left leg ulceration (non-infected) Plan: -Pt S&E at bedside -Plan discussed w/ attending Dr. Hernandez -Chart, labs, vitals reviewed: afebrile, no leukocystosis -Left leg dress w/ xeroform, DSD, kerlix applied. Discussed w/ nurse that dressing is to be changed every other day. -Use cast bag for showering -Stable per podiatry -Pod will continue to follow, will see weekly.
[2017-03-11] MEDS: Insulin Regular 100 units/ml SC SCH (06:41)
--- NOTE | 2017-03-11 17:30 | CP.PCM.PN ---
Subjective - Date & Time of Evaluation Date of Evaluation: 03/11/17 Time of Evaluation: 16:15 Objective - Vital Signs/Intake and Output Vital Signs (last 24 hours): Temp Pulse Resp BP Pulse Ox 98 F 69 20 120/70 100 03/11/17 07:36 03/11/17 08:48 03/11/17 07:36 03/11/17 08:48 03/11/17 07:28 - Medications Medications: Current Medications Acetaminophen (Tylenol 325mg Tab) 650 mg PO Q6 PRN PRN Reason: Pain 4-10 Last Admin: 03/08/17 09:42 Dose: 650 mg Amlodipine Besylate (Norvasc) 10 mg PO DAILY [facility] Last Admin: 03/11/17 08:48 Dose: 10 mg Aspirin (Aspirin Chewable) 81 mg PO DAILY [facility] Last Admin: 03/11/17 08:50 Dose: 81 mg Atorvastatin Calcium (Lipitor) 40 mg PO HS [facility] Last Admin: 03/10/17 21:19 Dose: 40 mg Cyanocobalamin (Vitamin B12 1000 Mcg Tab) 1,000 mcg PO DAILY [facility] Last Admin: 03/11/17 08:50 Dose: 1,000 mcg Docusate Sodium (Colace) 100 mg PO BID [facility] Last Admin: 03/11/17 08:47 Dose: 100 mg Famotidine (Pepcid) 20 mg PO BID [facility] Last Admin: 03/11/17 08:50 Dose: 20 mg Ferrous Sulfate (Feosol) 325 mg PO DAILY [facility] Last Admin: 03/11/17 08:49 Dose: 325 mg Folic Acid (Folic Acid) 1 mg PO DAILY [facility] Last Admin: 03/11/17 08:48 Dose: 1 mg Ibuprofen (Motrin Tab) 600 mg PO Q8 [facility] Last Admin: 03/11/17 06:36 Dose: 600 mg Insulin Human Regular (Humulin R) 0 units SC 0630 [facility] PRN Reason: Protocol Last Admin: 03/11/17 06:41 Dose: Not Given Thiamine HCl (Vitamin B1 Tab) 100 mg PO DAILY [facility] Last Admin: 03/11/17 08:50 Dose: 100 mg Valsartan (Diovan) 320 mg PO DAILY [facility] Last Admin: 03/11/17 08:47 Dose: 320 mg - Labs Labs: 03/08/17 05:20 03/01/17 06:40 PT 21.3 SECONDS (9.6-11.2) H 03/10/17 07:43 INR 2.05 (0.92-1.08) H 03/10/17 07:43 Assessment and Plan (1) Constipation Status: Chronic (2) Leg ulcer, left Status: Chronic (3) Hypertension Status: Chronic (4) CVA (cerebral vascular accident) Status: Chronic (5) UTI (urinary tract infection) Status: Acute (6) BPH (benign prostatic hyperplasia) Status: Acute
--- NOTE | 2017-03-11 18:29 | CP.PCM.CON ---
History of Present Illness - History of Present Illness History of Present Illness: Mr. 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 He has a history of a previous right subcortical and cortical stroke along with new bilateral cortical infarcts that were concerning for cardio-embolic etiology. A INCOL was done and confirmed the presence of an ASD. The patient was started on coumadin and currently has a therapeutic INR. Neurology was consulted to assist with the management and care. Today, the patient continued to complain of chronic left side weakness, but his speech and swallowing has been improving. He did not have any other complaints. Review of Systems - Review of Systems All systems: reviewed and no additional remarkable complaints except Past Patient History - Infectious Disease Hx of Infectious Diseases: None - Past Medical History & Family History Past Medical History?: Yes Past Family History: Reviewed and not pertinent - Past Social History Smoking Status: Former Smoker Alcohol: None Drugs: Denies - CARDIAC Hx Hypertension: Yes Hx Peripheral Vascular Disease: Yes Other/Comment: ASD - PULMONARY Hx Respiratory Disorders: No - NEUROLOGICAL HX Cerebrovascular Accident: Yes Hx Paralysis: Yes (Left sided) Hx Transient Ischemic Attacks (TIA): Yes - HEENT Hx HEENT Problems: No - RENAL Hx Chronic Kidney Disease: Yes (CKD Stage 2) Other/Comment: - February 2017: (+) for UTI - ENDOCRINE/METABOLIC Hx Endocrine Disorders: No (Hx. Obesity; Denied being diabetic) - HEMATOLOGICAL/ONCOLOGICAL Hx AIDS: No Hx Human Immunodeficiency Virus (HIV): No - INTEGUMENTARY Hx Dermatological Problems: Yes Other/Comment: - Chronic left lower leg ulcer - MUSCULOSKELETAL/RHEUMATOLOGICAL Hx Falls: Yes - GASTROINTESTINAL Hx Gastrointestinal Disorders: Yes Hx Bowel Surgery: Yes (Patient stated "colon resection 2006") HX Swallowing Problems: Yes - GENITOURINARY/GYNECOLOGICAL Hx Hematuria: Yes (Last Hospitalization in [facility] 02/22/2017) Hx Prostate Problems: Yes ("little bleeding") - PSYCHIATRIC Hx Substance Use: No - SURGICAL HISTORY Hx Surgeries: Yes Hx Appendectomy: Yes Hx Cardiac Catheterization: Yes (Left leg cath) Other/Comment: - "Colon Resection 2006". - 2013 or 2014: "cath done to left leg to look at circulation" - ANESTHESIA Hx Anesthesia: Yes Hx Anesthesia Reactions: No Hx Malignant Hyperthermia: No Has any member of the family had a problem w/ anesthesia?: No Meds Allergies/Adverse Reactions: Allergies Allergy/AdvReac Type Severity Reaction Status Date / Time No Known Allergies Allergy Verified 02/28/17 21:47 - Medications Medications: Current Medications Acetaminophen (Tylenol 325mg Tab) 650 mg PO Q6 PRN PRN Reason: Pain 4-10 Last Admin: 03/08/17 09:42 Dose: 650 mg Amlodipine Besylate (Norvasc) 10 mg PO DAILY [facility] Last Admin: 03/11/17 08:48 Dose: 10 mg Aspirin (Aspirin Chewable) 81 mg PO DAILY [facility] Last Admin: 03/11/17 08:50 Dose: 81 mg Atorvastatin Calcium (Lipitor) 40 mg PO HS [facility] Last Admin: 03/10/17 21:19 Dose: 40 mg Cyanocobalamin (Vitamin B12 1000 Mcg Tab) 1,000 mcg PO DAILY [facility] Last Admin: 03/11/17 08:50 Dose: 1,000 mcg Docusate Sodium (Colace) 100 mg PO BID [facility] Last Admin: 03/11/17 17:43 Dose: 100 mg Famotidine (Pepcid) 20 mg PO BID [facility] Last Admin: 03/11/17 17:45 Dose: 20 mg Ferrous Sulfate (Feosol) 325 mg PO DAILY [facility] Last Admin: 03/11/17 08:49 Dose: 325 mg Folic Acid (Folic Acid) 1 mg PO DAILY [facility] Last Admin: 03/11/17 08:48 Dose: 1 mg Ibuprofen (Motrin Tab) 600 mg PO Q8 [facility] Last Admin: 03/11/17 14:00 Dose: 600 mg Insulin Human Regular (Humulin R) 0 units SC 0630 [facility] PRN Reason: Protocol Last Admin: 03/11/17 06:41 Dose: Not Given Thiamine HCl (Vitamin B1 Tab) 100 mg PO DAILY [facility] Last Admin: 03/11/17 08:50 Dose: 100 mg Valsartan (Diovan) 320 mg PO DAILY [facility] Last Admin: 03/11/17 08:47 Dose: 320 mg Physical Exam - Constitutional Appears: Well - Head Exam Head Exam: ATRAUMATIC, NORMAL INSPECTION, NORMOCEPHALIC - Eye Exam Eye Exam: EOMI, Normal appearance, PERRL - ENT Exam ENT Exam: Mucous Membranes Moist, Normal Exam - Neck Exam Neck exam: Positive for: Normal Inspection - Respiratory Exam Respiratory Exam: Clear to Auscultation Bilateral, NORMAL BREATHING PATTERN - Cardiovascular Exam Cardiovascular Exam: REGULAR RHYTHM, +S1, +S2 - GI/Abdominal Exam GI & Abdominal Exam: Normal Bowel Sounds, Soft. absent: Tenderness - Neurological Exam Neurological exam: Abnormal Gait, Alert, CN II-XII Intact, Oriented x3 Additional comments: Brisk reflexes on the left side as compared with the right along with upgoing plantar response and mild sensory changes on the left. Strength is 3/5 distally and 4/5 proximally with distal arm and hand contractures with some spasticity. Right side strength is normal. Dysarthria is noted, but no significant aphasia. Romberg and gait were deferred due to hemiplegia. Results - Vital Signs Recent Vital Signs: Last Vital Signs Temp 98 F 03/11/17 14:00 Pulse 89 03/11/17 14:00 Resp 20 03/11/17 14:00 BP 120/70 03/11/17 14:00 Pulse Ox 100 03/11/17 07:28 - Labs Result Diagrams: 03/08/17 05:20 03/01/17 06:40 Labs: Laboratory Results - last 24 hr 03/11/17 06:19 POC Glucose (mg/dL) 100 - Impressions Impression: No recent imaging, but the MRI from [facility] will be requested. Assessment & Plan (1) CVA (cerebral vascular accident) Assessment and Plan: Continue supportive care, PT/OT/ST, coumadin for INR of 2-3, adequate hydration to maintain cerebral perfusion, risk factor management and education. I will continue to follow along with the primary team and recommend a sleep study at some point to determine if the patient has sleep apnea, which can increase the risk of ischemic stroke in the setting of ASD. Thank you very much for this consultation. Status: Chronic Priority: Medium
[2017-03-12] MEDS: Insulin Regular 100 units/ml SC SCH (06:23)
--- NOTE | 2017-03-12 11:59 | CP.PCM.PN ---
Subjective - Date & Time of Evaluation Date of Evaluation: 03/11/17 Time of Evaluation: 15:00 - Subjective Subjective: no back or neck pain Objective - Vital Signs/Intake and Output Vital Signs (last 24 hours): Temp Pulse Resp BP Pulse Ox 96.8 F L 60 18 132/75 100 03/12/17 08:25 03/12/17 08:25 03/12/17 08:25 03/12/17 08:55 03/12/17 08:25 - Medications Medications: Current Medications Acetaminophen (Tylenol 325mg Tab) 650 mg PO Q6 PRN PRN Reason: Pain 4-10 Last Admin: 03/08/17 09:42 Dose: 650 mg Amlodipine Besylate (Norvasc) 10 mg PO DAILY [facility] Last Admin: 03/12/17 08:55 Dose: 10 mg Aspirin (Aspirin Chewable) 81 mg PO DAILY [facility] Last Admin: 03/12/17 08:54 Dose: 81 mg Atorvastatin Calcium (Lipitor) 40 mg PO HS [facility] Last Admin: 03/11/17 21:25 Dose: 40 mg Cyanocobalamin (Vitamin B12 1000 Mcg Tab) 1,000 mcg PO DAILY [facility] Last Admin: 03/12/17 08:53 Dose: 1,000 mcg Docusate Sodium (Colace) 100 mg PO BID [facility] Last Admin: 03/12/17 08:54 Dose: 100 mg Famotidine (Pepcid) 20 mg PO BID [facility] Last Admin: 03/12/17 08:54 Dose: 20 mg Ferrous Sulfate (Feosol) 325 mg PO DAILY [facility] Last Admin: 03/12/17 08:54 Dose: 325 mg Folic Acid (Folic Acid) 1 mg PO DAILY [facility] Last Admin: 03/12/17 08:54 Dose: 1 mg Ibuprofen (Motrin Tab) 600 mg PO Q8 [facility] Last Admin: 03/12/17 06:27 Dose: 600 mg Insulin Human Regular (Humulin R) 0 units SC 0630 [facility] PRN Reason: Protocol Last Admin: 03/12/17 06:23 Dose: Not Given Thiamine HCl (Vitamin B1 Tab) 100 mg PO DAILY [facility] Last Admin: 03/12/17 08:54 Dose: 100 mg Valsartan (Diovan) 320 mg PO DAILY [facility] Last Admin: 03/12/17 08:55 Dose: 320 mg Warfarin Sodium (Coumadin) 7.5 mg PO DAILY@1700 [facility] PRN Reason: Protocol Stop: 03/12/17 17:01 Last Admin: 03/11/17 19:14 Dose: 7.5 mg - Labs Labs: 03/08/17 05:20 03/01/17 06:40 PT 21.3 SECONDS (9.6-11.2) H 03/10/17 07:43 INR 2.05 (0.92-1.08) H 03/10/17 07:43 - Head Exam Head Exam: ATRAUMATIC, NORMAL INSPECTION, NORMOCEPHALIC - Eye Exam Eye Exam: EOMI, Normal appearance Pupil Exam: NORMAL ACCOMODATION - ENT Exam ENT Exam: Mucous Membranes Moist, Normal Exam - Neck Exam Neck Exam: Normal Inspection - Respiratory Exam Respiratory Exam: NORMAL BREATHING PATTERN - Cardiovascular Exam Cardiovascular Exam: REGULAR RHYTHM - GI/Abdominal Exam GI & Abdominal Exam: Normal Bowel Sounds - Exam External exam: NORMAL EXTERNAL EXAM - Extremities Exam Extremities Exam: Normal Capillary Refill, Normal Inspection - Back Exam Back Exam: NORMAL INSPECTION - Neurological Exam Neurological Exam: Alert, Awake Neuro motor strength exam: Left Upper Extremity: 3, Right Upper Extremity: 3, Left Lower Extremity: 3, Right Lower Extremity: 3 - Psychiatric Exam Psychiatric exam: Normal Affect - Skin Skin Exam: Dry, Normal Color Assessment and Plan (1) Dizzinesses Status: Acute (2) Malignant hypertension Status: Acute (3) Constipation Status: Chronic (4) TIA (transient ischemic attack) Status: Acute (5) Leg ulcer, left Status: Chronic (6) Infected wound Status: Acute (7) Effusion of right knee Status: Acute (8) CVA (cerebral vascular accident) Assessment & Plan: plan for physical, occupational, rec therapy continue present treatment Status: Chronic
--- NOTE | 2017-03-12 18:50 | CP.PCM.PN ---
Subjective - Date & Time of Evaluation Date of Evaluation: 03/12/17 Time of Evaluation: 16:45 Objective - Vital Signs/Intake and Output Vital Signs (last 24 hours): Temp Pulse Resp BP Pulse Ox 96.8 F L 60 18 132/75 100 03/12/17 08:25 03/12/17 08:25 03/12/17 08:25 03/12/17 08:55 03/12/17 08:25 - Medications Medications: Current Medications Acetaminophen (Tylenol 325mg Tab) 650 mg PO Q6 PRN PRN Reason: Pain 4-10 Last Admin: 03/08/17 09:42 Dose: 650 mg Amlodipine Besylate (Norvasc) 10 mg PO DAILY [facility] Last Admin: 03/12/17 08:55 Dose: 10 mg Aspirin (Aspirin Chewable) 81 mg PO DAILY [facility] Last Admin: 03/12/17 08:54 Dose: 81 mg Atorvastatin Calcium (Lipitor) 40 mg PO HS [facility] Last Admin: 03/11/17 21:25 Dose: 40 mg Cyanocobalamin (Vitamin B12 1000 Mcg Tab) 1,000 mcg PO DAILY [facility] Last Admin: 03/12/17 08:53 Dose: 1,000 mcg Docusate Sodium (Colace) 100 mg PO BID [facility] Last Admin: 03/12/17 16:50 Dose: 100 mg Famotidine (Pepcid) 20 mg PO BID [facility] Last Admin: 03/12/17 16:51 Dose: 20 mg Ferrous Sulfate (Feosol) 325 mg PO DAILY [facility] Last Admin: 03/12/17 08:54 Dose: 325 mg Folic Acid (Folic Acid) 1 mg PO DAILY [facility] Last Admin: 03/12/17 08:54 Dose: 1 mg Ibuprofen (Motrin Tab) 600 mg PO Q8 [facility] Last Admin: 03/12/17 13:49 Dose: 600 mg Insulin Human Regular (Humulin R) 0 units SC 0630 [facility] PRN Reason: Protocol Last Admin: 03/12/17 06:23 Dose: Not Given Thiamine HCl (Vitamin B1 Tab) 100 mg PO DAILY [facility] Last Admin: 03/12/17 08:54 Dose: 100 mg Valsartan (Diovan) 320 mg PO DAILY [facility] Last Admin: 03/12/17 08:55 Dose: 320 mg - Labs Labs: 03/08/17 05:20 03/01/17 06:40 PT 21.3 SECONDS (9.6-11.2) H 03/10/17 07:43 INR 2.05 (0.92-1.08) H 03/10/17 07:43 Assessment and Plan (1) Constipation Status: Chronic (2) Leg ulcer, left Status: Chronic (3) Hypertension Status: Chronic (4) CVA (cerebral vascular accident) Status: Chronic (5) UTI (urinary tract infection) Status: Acute (6) BPH (benign prostatic hyperplasia) Status: Acute
[2017-03-13] MEDS: Insulin Regular 100 units/ml SC SCH (06:12)
--- NOTE | 2017-03-13 15:36 | CP.PCM.PN ---
Subjective - Date & Time of Evaluation Date of Evaluation: 03/13/17 Time of Evaluation: 12:00 - Subjective Subjective: no acute neck or back pain Objective - Vital Signs/Intake and Output Vital Signs (last 24 hours): Temp Pulse Resp BP Pulse Ox 98.4 F 65 60 H 127/84 97 03/12/17 20:39 03/13/17 09:25 03/13/17 10:00 03/13/17 10:00 03/13/17 09:25 - Medications Medications: Current Medications Acetaminophen (Tylenol 325mg Tab) 650 mg PO Q6 PRN PRN Reason: Pain 4-10 Last Admin: 03/08/17 09:42 Dose: 650 mg Amlodipine Besylate (Norvasc) 10 mg PO DAILY [facility] Last Admin: 03/13/17 08:29 Dose: 10 mg Aspirin (Aspirin Chewable) 81 mg PO DAILY [facility] Last Admin: 03/13/17 08:27 Dose: 81 mg Atorvastatin Calcium (Lipitor) 40 mg PO HS [facility] Last Admin: 03/12/17 21:33 Dose: 40 mg Cyanocobalamin (Vitamin B12 1000 Mcg Tab) 1,000 mcg PO DAILY [facility] Last Admin: 03/13/17 09:00 Dose: 1,000 mcg Docusate Sodium (Colace) 100 mg PO BID [facility] Last Admin: 03/13/17 08:28 Dose: 100 mg Famotidine (Pepcid) 20 mg PO BID [facility] Last Admin: 03/13/17 08:29 Dose: 20 mg Ferrous Sulfate (Feosol) 325 mg PO DAILY [facility] Last Admin: 03/13/17 08:27 Dose: 325 mg Folic Acid (Folic Acid) 1 mg PO DAILY [facility] Last Admin: 03/13/17 08:30 Dose: 1 mg Ibuprofen (Motrin Tab) 600 mg PO Q8 [facility] Last Admin: 03/13/17 13:21 Dose: 600 mg Insulin Human Regular (Humulin R) 0 units SC 0630 [facility] PRN Reason: Protocol Last Admin: 03/13/17 06:12 Dose: Not Given Thiamine HCl (Vitamin B1 Tab) 100 mg PO DAILY [facility] Last Admin: 03/13/17 08:31 Dose: 100 mg Valsartan (Diovan) 320 mg PO DAILY [facility] Last Admin: 03/13/17 08:29 Dose: 320 mg Warfarin Sodium (Coumadin) 7.5 mg PO QD5 [facility] PRN Reason: Protocol Stop: 03/19/17 17:01 - Labs Labs: 03/08/17 05:20 03/01/17 06:40 PT 26.4 SECONDS (9.6-11.2) H D 03/13/17 06:45 INR 2.54 (0.92-1.08) H 03/13/17 06:45 - Head Exam Head Exam: ATRAUMATIC, NORMAL INSPECTION, NORMOCEPHALIC - Eye Exam Eye Exam: EOMI, Normal appearance, PERRL Pupil Exam: NORMAL ACCOMODATION - ENT Exam ENT Exam: Mucous Membranes Moist, Normal Exam - Neck Exam Neck Exam: Normal Inspection - Respiratory Exam Respiratory Exam: NORMAL BREATHING PATTERN - Cardiovascular Exam Cardiovascular Exam: REGULAR RHYTHM - GI/Abdominal Exam GI & Abdominal Exam: Normal Bowel Sounds - Rectal Exam Rectal Exam: NORMAL INSPECTION - Exam External exam: NORMAL EXTERNAL EXAM - Extremities Exam Extremities Exam: Normal Capillary Refill - Back Exam Back Exam: NORMAL INSPECTION - Neurological Exam Neurological Exam: Alert, Awake Neuro motor strength exam: Left Upper Extremity: 3, Right Upper Extremity: 3, Left Lower Extremity: 3, Right Lower Extremity: 3 - Psychiatric Exam Psychiatric exam: Normal Affect, Normal Mood - Skin Skin Exam: Dry, Intact, Normal Color Assessment and Plan (1) Dizzinesses Status: Acute (2) Malignant hypertension Status: Acute (3) Constipation Status: Chronic (4) TIA (transient ischemic attack) Assessment & Plan: plan for physical, occupational, rec therapy continue to monitor skin, bowel, bladder Status: Acute (5) Leg ulcer, left Status: Chronic (6) Infected wound Status: Acute (7) Effusion of right knee Status: Acute (8) CVA (cerebral vascular accident) Status: Chronic
--- NOTE | 2017-03-13 23:08 | CP.PCM.PN ---
Subjective - Date & Time of Evaluation Date of Evaluation: 03/13/17 Time of Evaluation: 12:30 Objective - Vital Signs/Intake and Output Vital Signs (last 24 hours): Temp Pulse Resp BP Pulse Ox 97.5 F L 55 L 20 108/66 96 03/13/17 21:10 03/13/17 21:10 03/13/17 21:10 03/13/17 21:10 03/13/17 21:10 - Medications Medications: Current Medications Acetaminophen (Tylenol 325mg Tab) 650 mg PO Q6 PRN PRN Reason: Pain 4-10 Last Admin: 03/08/17 09:42 Dose: 650 mg Amlodipine Besylate (Norvasc) 10 mg PO DAILY [facility] Last Admin: 03/13/17 08:29 Dose: 10 mg Aspirin (Aspirin Chewable) 81 mg PO DAILY [facility] Last Admin: 03/13/17 08:27 Dose: 81 mg Atorvastatin Calcium (Lipitor) 40 mg PO HS [facility] Last Admin: 03/13/17 21:06 Dose: 40 mg Cyanocobalamin (Vitamin B12 1000 Mcg Tab) 1,000 mcg PO DAILY [facility] Last Admin: 03/13/17 09:00 Dose: 1,000 mcg Docusate Sodium (Colace) 100 mg PO BID [facility] Last Admin: 03/13/17 17:00 Dose: 100 mg Famotidine (Pepcid) 20 mg PO BID [facility] Last Admin: 03/13/17 17:00 Dose: 20 mg Ferrous Sulfate (Feosol) 325 mg PO DAILY [facility] Last Admin: 03/13/17 08:27 Dose: 325 mg Folic Acid (Folic Acid) 1 mg PO DAILY [facility] Last Admin: 03/13/17 08:30 Dose: 1 mg Ibuprofen (Motrin Tab) 600 mg PO Q8 [facility] Last Admin: 03/13/17 21:06 Dose: 600 mg Insulin Human Regular (Humulin R) 0 units SC 0630 [facility] PRN Reason: Protocol Last Admin: 03/13/17 06:12 Dose: Not Given Thiamine HCl (Vitamin B1 Tab) 100 mg PO DAILY [facility] Last Admin: 03/13/17 08:31 Dose: 100 mg Valsartan (Diovan) 320 mg PO DAILY [facility] Last Admin: 03/13/17 08:29 Dose: 320 mg Warfarin Sodium (Coumadin) 7.5 mg PO QD5 [facility] PRN Reason: Protocol Stop: 03/19/17 17:01 Last Admin: 03/13/17 16:59 Dose: 7.5 mg - Labs Labs: 03/08/17 05:20 03/01/17 06:40 PT 26.4 SECONDS (9.6-11.2) H D 03/13/17 06:45 INR 2.54 (0.92-1.08) H 03/13/17 06:45 Assessment and Plan (1) Constipation Status: Chronic (2) Leg ulcer, left Status: Chronic (3) Hypertension Status: Chronic (4) CVA (cerebral vascular accident) Status: Chronic (5) UTI (urinary tract infection) Status: Acute (6) BPH (benign prostatic hyperplasia) Status: Acute
[2017-03-14] MEDS: Insulin Regular 100 units/ml SC SCH (06:03)
--- NOTE | 2017-03-14 23:59 | CP.PCM.PN ---
Subjective - Date & Time of Evaluation Date of Evaluation: 03/14/17 Time of Evaluation: 18:15 Objective - Vital Signs/Intake and Output Vital Signs (last 24 hours): Temp Pulse Resp BP Pulse Ox 97.5 F L 54 L 20 112/72 99 03/14/17 20:28 03/14/17 20:28 03/14/17 20:28 03/14/17 20:28 03/14/17 20:28 - Medications Medications: Current Medications Acetaminophen (Tylenol 325mg Tab) 650 mg PO Q6 PRN PRN Reason: Pain 4-10 Last Admin: 03/08/17 09:42 Dose: 650 mg Amlodipine Besylate (Norvasc) 10 mg PO DAILY [facility] Last Admin: 03/14/17 09:05 Dose: 10 mg Aspirin (Aspirin Chewable) 81 mg PO DAILY [facility] Last Admin: 03/14/17 09:03 Dose: 81 mg Atorvastatin Calcium (Lipitor) 40 mg PO HS [facility] Last Admin: 03/14/17 21:17 Dose: 40 mg Cyanocobalamin (Vitamin B12 1000 Mcg Tab) 1,000 mcg PO DAILY [facility] Last Admin: 03/14/17 09:03 Dose: 1,000 mcg Docusate Sodium (Colace) 100 mg PO BID [facility] Last Admin: 03/14/17 17:07 Dose: Not Given Famotidine (Pepcid) 20 mg PO BID [facility] Last Admin: 03/14/17 17:09 Dose: 20 mg Ferrous Sulfate (Feosol) 325 mg PO DAILY [facility] Last Admin: 03/14/17 09:03 Dose: 325 mg Folic Acid (Folic Acid) 1 mg PO DAILY [facility] Last Admin: 03/14/17 09:03 Dose: 1 mg Ibuprofen (Motrin Tab) 600 mg PO Q8 [facility] Last Admin: 03/14/17 21:17 Dose: 600 mg Insulin Human Regular (Humulin R) 0 units [place] 0630 [facility] PRN Reason: Protocol Last Admin: 03/14/17 06:03 Dose: Not Given Thiamine HCl (Vitamin B1 Tab) 100 mg PO DAILY [facility] Last Admin: 03/14/17 09:03 Dose: 100 mg Valsartan (Diovan) 320 mg PO DAILY [facility] Last Admin: 03/14/17 09:02 Dose: 320 mg - Labs Labs: 03/08/17 05:20 03/01/17 06:40 PT 26.4 SECONDS (9.6-11.2) H D 03/13/17 06:45 INR 2.54 (0.92-1.08) H 03/13/17 06:45 Assessment and Plan (1) Constipation Status: Chronic (2) Leg ulcer, left Status: Chronic (3) Hypertension Status: Chronic (4) CVA (cerebral vascular accident) Status: Chronic (5) UTI (urinary tract infection) Status: Acute (6) BPH (benign prostatic hyperplasia) Status: Acute
[2017-03-15] MEDS: Insulin Regular 100 units/ml SC SCH (05:38)
--- NOTE | 2017-03-15 12:13 | PSY.TMCNF ---
Nursing - Vital Signs Vital Signs (Last 8 hours): Vital Signs 03/15/17 03/15/17 03/15/17 08:31 10:00 11:54 Temperature 97.2 F L 97.2 F L Pulse Rate 62 62 Respiratory 20 20 Rate Blood Pressure 119/70 119/70 119/70 O2 Sat by Pulse 98 Oximetry Pain: 0 - Precautions: Precautions: Fall Prevention, Aspiration, Pressure Ulcer - Medications/Other Issues Comment: On Coumadin 7.5mg daily - Consults Comment: , , - Wound Left Lower Calf Wound Type: Stasis Ulcer Wound Shape: Irregular Wound Dressing Status: Dry & Intact Dressing Changed: No Wound Primary Dressing Type: Medicated Gauze Pads Wound Secondary Dressing Type: Gauze Roll/Wrap - Toileting Toileting: Dependent - Bladder Management Bladder Pattern: Incontinent Voiding Method: Urinal, Diaper Bladder Management: Dependent Frequency of Accidents: >5 - Bowel Management Bowel Pattern: Normal, Constipated Bowel Management: Supervision Frequency of Accidents: 0 - Transfers Transfers: Moderate Assistance - ADL's ADL's: Maximal Assistance - Pain Management Comments: On Motrin 400 mg q8h for pain on left buttock - Patient/Family Teaching Comments: Care post CVA and safety precautions - Goals/Time Frame Comments: Per multidiciplinary care plan and goals Physical Therapy - Bed Mobility Bed Mobility: Verbal Cues, Contact Guard, Minimal Assistance Comment: CGA sit to supine. min A supine to sit on mat table - Transfers Wheelchair to Mat: Contact Guard Sit to Stand: Supervision, Verbal Cues, Contact Guard Comment: with WBQC - Ambulation Level of Assistance: Verbal Cues, Contact Guard Distance (ft.): 150 Assistive Devices: Wide base quad cane - Stair Negotiation Stairs: Level of Assistance: Moderate Assistance Number of Stairs: 4 Handrails: Left Stairs: Assistive Devices: Right Handrail - Standing Balance Static Stand: Supervision - Pain Comment: pt no longer complains of pain during therapy sessions - Insight/Carryover Insight/Carryover: Good - Patient/Family Education Comment: Pt education provided during sessions for increased safety awareness and proper techniques during functional mobility training - Assessment/Plan Assessment: Pt continues to be agreeable to participate in 1:1 and group recreation therapy sessions. Pt is oriented to memory and problem solving related tasks to continue to improve speech intelligbility and memory recall. Pt does well with tasks and enjoys participating in recreation therapy sessions. Pt will continue to benefit from recreation therapy participation. - Goals Timeframe: 2 weeks Goals: Bed mobility (I). Transfers mod (I) with WBQC. Ambulate 500 ft with WBQC mod I. Negotiate 2 flights of stairs with L handrail and distant S - Provider Therapist: Sravani PALENCIAN RN CRRN Occupational Therapy - Arousal/Attention/Orientation Patient Orientation: Person, Place, Time, Appropriate to Age, Appropriate to Situation - ADL/IADL Self Feeding: Supervision, Set-up Help Grooming: Supervision, Set-up Help Bathing-Upper Extremity: Contact Guard Bathing-Lower Extremity: Minimal Assistance Dressing-Upper Extremity: Moderate Assistance Dressing-Lower Extremity: Maximum Assistance - Sitting Balance Static Sitting: Independent without upper extremity support Dynamic Sitting: Reaches across midline, Reaches out of base of support, Requires supervision - Transfers Wheelchair to Bed Transfers: Minimal Assistance, Moderate Assistance Toilet Transfers: Minimal Assistance, Moderate Assistance Tub Transfers: Moderate Assistance, Maximum Assistance Comment: Pt has a tub-shower with curtain. Pt has a shower-chair at the home. Recommend use of tub-bench at this time. Pt trialed tub-bench with mod/max assist. - Wheelchair Management Distance (ft.): 0 - Upper Extremity Status Right Upper Extremity Comment: RUE WFL t/o Left Upper Extremity Comment: LUE impaired t/o: Pt's L shoulder is 2-/5 to 3-/5 ; elbow flexors are 3-/5; elbow extensors 2-/5; wrist flexors 2-/5; wrist extensors 2-/5. Pt noted with flexor tone t/o LUE. - Pain Comment: pt no longer complains of pain during therapy sessions - Insight/Carryover Insight/Carryover: Good - Patient/Family Education Comment: Pt education provided during sessions for increased safety awareness and proper techniques during functional mobility training - Assessment/Plan Assessment: Pt continues to be agreeable to participate in 1:1 and group recreation therapy sessions. Pt is oriented to memory and problem solving related tasks to continue to improve speech intelligbility and memory recall. Pt does well with tasks and enjoys participating in recreation therapy sessions. Pt will continue to benefit from recreation therapy participation. - Goals Timeframe: 2 weeks Goals: Bed mobility (I). Transfers mod (I) with WBQC. Ambulate 500 ft with WBQC mod I. Negotiate 2 flights of stairs with L handrail and distant S - Provider Therapist: Aury Simms Speech Therapy - Consult Information Patient on Program: Yes Medical Diagnosis: CVA Treatment Diagnosis: moderate dysphagia - Assessment Dysphagia/Swallowing Impairment: Moderate Comment: finely chopped solids/nectar thick liquids - Plan Assessment: Pt continues to be agreeable to participate in 1:1 and group recreation therapy sessions. Pt is oriented to memory and problem solving related tasks to continue to improve speech intelligbility and memory recall. Pt does well with tasks and enjoys participating in recreation therapy sessions. Pt will continue to benefit from recreation therapy participation. Plan: Continue Dysphagia Therapy - Provider Therapist: Niesha Russ License Number: [id number] Recreational Therapy - Participation Participation: Participates in Individual and/or Group Sessions - Attendance Attendance: 3-5 times per week - Activities Leisure Activities: Cards and Games - Socialization Level of Socialization: Initiates/interacts freely with care givers and peer - Diversional Time Diversional Time: television, games - Assessment Assessment/Plan: Pt continues to be agreeable to participate in 1:1 and group recreation therapy sessions. Pt is oriented to memory and problem solving related tasks to continue to improve speech intelligbility and memory recall. Pt does well with tasks and enjoys participating in recreation therapy sessions. Pt will continue to benefit from recreation therapy participation. Problems Currently Limiting Participation: L side weakness, decrease leisure awareness level Goals and Time Frame: Pt will be encouraged to participate in 1:1 and group recreation therapy sessions 3-5x week to improve leisure awareness level, mood state, and improve speech intelligibility. - Provider Therapist: Krissy Galvez, [employer] #[id number] Nutrition - Current Diet Current Diet/ Supplement/ Feedings: Mech altered(finely chopped) [place] Thick Liquids - Appetite Percent Meal Consumed: 75-100% - Comments Comments: Care post CVA and safety precautions - Assessment/Goals/Time Frame Assessment/Goals/Time Frame: On Coumadin 7.5mg daily - Provider Provider: Keri Branch RD Case Management - Psychosocial Assessment Support Systems: Patient lives alone with limited support during the day, however, son Ankur Chapin is supportive and visits occasionally- [phone] Psychological Interventions/Needs: Patient is alert and oriented x3 and able to verbalize needs. Patient is motivated and cooperative in therapy Discharge Concerns: Patient lives alone with very limited support during the day , patient also with 20+ steps to negotiate at home. Patient/Family Meeting: CM met with patient and rehab team Intervention/Goal/Outcome:: 1. Plan: MARIA ANTONIA- patient limited recently due to L gluteal pain- currently requiring min-mod A for gait, transfer and ADLs- CM and rehab team discussed progress and recommendations with patient- patient in agreement to [facility] at [facility] after completion of acute rehab- patient also requesting to have [facility] homecare services endorsed to [facility] prior to transfer. 2. Tentative discharge date: 03/24/2017. 3. CM to contact family to coordinate transfer - Discharge Plan Discharge Plan: Subacute care - Provider Provider: TERENCE Grande LSW License Number: [id number] Rehabilitation Plan - Treatment Plan Treatment Plan: Physical Therapy, Occupational Therapy, Speech, Dietary - Recommendation Recommendation: Physical Therapy, Occupational Therapy, Speech, Dietary, Patient /Family Education - Discharge Plan Discharge to: Subacute (march 24 subacute)
--- NOTE | 2017-03-15 15:07 | CP.PCM.PN ---
Subjective - Date & Time of Evaluation Date of Evaluation: 03/15/17 Time of Evaluation: 12:00 - Subjective Subjective: no acute complaints at present Objective - Vital Signs/Intake and Output Vital Signs (last 24 hours): Temp Pulse Resp BP Pulse Ox 97.2 F L 62 20 119/70 98 03/15/17 11:54 03/15/17 11:54 03/15/17 11:54 03/15/17 11:54 03/15/17 10:00 - Medications Medications: Current Medications Acetaminophen (Tylenol 325mg Tab) 650 mg PO Q6 PRN PRN Reason: Pain 4-10 Last Admin: 03/08/17 09:42 Dose: 650 mg Amlodipine Besylate (Norvasc) 10 mg PO DAILY [facility] Last Admin: 03/15/17 08:31 Dose: 10 mg Aspirin (Aspirin Chewable) 81 mg PO DAILY [facility] Last Admin: 03/15/17 08:31 Dose: 81 mg Atorvastatin Calcium (Lipitor) 40 mg PO HS [facility] Last Admin: 03/14/17 21:17 Dose: 40 mg Cyanocobalamin (Vitamin B12 1000 Mcg Tab) 1,000 mcg PO DAILY [facility] Last Admin: 03/15/17 08:30 Dose: 1,000 mcg Docusate Sodium (Colace) 100 mg PO BID [facility] Last Admin: 03/15/17 08:30 Dose: 100 mg Famotidine (Pepcid) 20 mg PO BID [facility] Last Admin: 03/15/17 08:31 Dose: 20 mg Ferrous Sulfate (Feosol) 325 mg PO DAILY [facility] Last Admin: 03/15/17 08:30 Dose: 325 mg Folic Acid (Folic Acid) 1 mg PO DAILY [facility] Last Admin: 03/15/17 08:30 Dose: 1 mg Ibuprofen (Motrin Tab) 600 mg PO Q8 [facility] Last Admin: 03/15/17 13:06 Dose: 600 mg Insulin Human Regular (Humulin R) 0 units [place] 0630 [facility] PRN Reason: Protocol Last Admin: 03/15/17 05:38 Dose: Not Given Thiamine HCl (Vitamin B1 Tab) 100 mg PO DAILY [facility] Last Admin: 03/15/17 08:30 Dose: 100 mg Valsartan (Diovan) 320 mg PO DAILY [facility] Last Admin: 03/15/17 08:29 Dose: 320 mg - Labs Labs: 03/08/17 05:20 03/01/17 06:40 PT 26.4 SECONDS (9.6-11.2) H D 03/13/17 06:45 INR 2.54 (0.92-1.08) H 03/13/17 06:45 - Head Exam Head Exam: ATRAUMATIC, NORMAL INSPECTION, NORMOCEPHALIC - Eye Exam Eye Exam: EOMI, Normal appearance, PERRL Pupil Exam: NORMAL ACCOMODATION - ENT Exam ENT Exam: Mucous Membranes Moist - Neck Exam Neck Exam: Normal Inspection - Respiratory Exam Respiratory Exam: NORMAL BREATHING PATTERN - Cardiovascular Exam Cardiovascular Exam: REGULAR RHYTHM - GI/Abdominal Exam GI & Abdominal Exam: Normal Bowel Sounds - Rectal Exam Rectal Exam: NORMAL INSPECTION - Exam External exam: NORMAL EXTERNAL EXAM - Extremities Exam Extremities Exam: Normal Capillary Refill, Normal Inspection - Neurological Exam Neurological Exam: Alert, Awake Neuro motor strength exam: Left Upper Extremity: 3, Right Upper Extremity: 3, Left Lower Extremity: 3, Right Lower Extremity: 3 - Psychiatric Exam Psychiatric exam: Normal Affect, Normal Mood - Skin Skin Exam: Dry, Intact Assessment and Plan (1) Dizzinesses Status: Acute (2) Malignant hypertension Status: Acute (3) Constipation Status: Chronic (4) TIA (transient ischemic attack) Assessment & Plan: plan for physical, occupational. rec and speech therapy upgrade diet status post team coneference Status: Acute (5) Leg ulcer, left Status: Chronic (6) Infected wound Status: Acute (7) Effusion of right knee Status: Acute (8) CVA (cerebral vascular accident) Status: Chronic
--- NOTE | 2017-03-15 23:46 | CP.PCM.PN ---
Subjective - Date & Time of Evaluation Date of Evaluation: 03/15/17 Time of Evaluation: 10:30 - Subjective Subjective: No Complaint. Improving well Objective - Vital Signs/Intake and Output Vital Signs (last 24 hours): Temp Pulse Resp BP Pulse Ox 97.8 F 66 20 121/76 98 03/15/17 20:57 03/15/17 20:57 03/15/17 20:57 03/15/17 20:57 03/15/17 20:57 - Medications Medications: Current Medications Acetaminophen (Tylenol 325mg Tab) 650 mg PO Q6 PRN PRN Reason: Pain 4-10 Last Admin: 03/08/17 09:42 Dose: 650 mg Amlodipine Besylate (Norvasc) 10 mg PO DAILY [facility] Last Admin: 03/15/17 08:31 Dose: 10 mg Aspirin (Aspirin Chewable) 81 mg PO DAILY [facility] Last Admin: 03/15/17 08:31 Dose: 81 mg Atorvastatin Calcium (Lipitor) 40 mg PO HS [facility] Last Admin: 03/15/17 21:12 Dose: 40 mg Cyanocobalamin (Vitamin B12 1000 Mcg Tab) 1,000 mcg PO DAILY [facility] Last Admin: 03/15/17 08:30 Dose: 1,000 mcg Docusate Sodium (Colace) 100 mg PO BID [facility] Last Admin: 03/15/17 17:37 Dose: 100 mg Famotidine (Pepcid) 20 mg PO BID [facility] Last Admin: 03/15/17 17:37 Dose: 20 mg Ferrous Sulfate (Feosol) 325 mg PO DAILY [facility] Last Admin: 03/15/17 08:30 Dose: 325 mg Folic Acid (Folic Acid) 1 mg PO DAILY [facility] Last Admin: 03/15/17 08:30 Dose: 1 mg Ibuprofen (Motrin Tab) 600 mg PO Q8 [facility] Last Admin: 03/15/17 21:12 Dose: 600 mg Insulin Human Regular (Humulin R) 0 units [place] 0630 [facility] PRN Reason: Protocol Last Admin: 03/15/17 05:38 Dose: Not Given Thiamine HCl (Vitamin B1 Tab) 100 mg PO DAILY [facility] Last Admin: 03/15/17 08:30 Dose: 100 mg Valsartan (Diovan) 320 mg PO DAILY [facility] Last Admin: 03/15/17 08:29 Dose: 320 mg - Labs Labs: 03/08/17 05:20 03/01/17 06:40 PT 26.4 SECONDS (9.6-11.2) H D 03/13/17 06:45 INR 2.54 (0.92-1.08) H 03/13/17 06:45 - Constitutional Appears: Well - Head Exam Head Exam: ATRAUMATIC, NORMAL INSPECTION, NORMOCEPHALIC - Eye Exam Eye Exam: EOMI, Normal appearance, PERRL Pupil Exam: NORMAL ACCOMODATION, PERRL - ENT Exam ENT Exam: Mucous Membranes Moist, Normal Exam - Neck Exam Neck Exam: Full ROM, Normal Inspection. absent: Lymphadenopathy - Respiratory Exam Respiratory Exam: Clear to Ausculation Bilateral, NORMAL BREATHING PATTERN - Cardiovascular Exam Cardiovascular Exam: REGULAR RHYTHM, +S1, +S2. absent: Murmur - GI/Abdominal Exam GI & Abdominal Exam: Soft, Normal Bowel Sounds. absent: Tenderness - Extremities Exam Extremities Exam: Full ROM, Normal Capillary Refill, Normal Inspection. absent : Joint Swelling, Pedal Edema - Back Exam Back Exam: NORMAL INSPECTION - Neurological Exam Neurological Exam: Alert, Awake, CN II-XII Intact, Normal Gait, Oriented x3 - Psychiatric Exam Psychiatric exam: Normal Affect, Normal Mood - Skin Skin Exam: Dry, Intact, Normal Color, Warm Assessment and Plan (1) CVA (cerebral vascular accident) Assessment & Plan: Lfet Hemiplegia Dysphagia Dysarthria Improving Continue Current Care Status: Acute (2) Constipation Status: Chronic (3) Leg ulcer, left Status: Chronic (4) Hypertension Status: Chronic (5) UTI (urinary tract infection) Status: Resolved (6) BPH (benign prostatic hyperplasia) Status: Chronic
[2017-03-16] MEDS: Insulin Regular 100 units/ml SC SCH (06:26)
--- NOTE | 2017-03-16 20:51 | CP.PCM.PN ---
Subjective - Date & Time of Evaluation Date of Evaluation: 03/16/17 Time of Evaluation: 15:00 - Subjective Subjective: no acute complaints at present just weakness Objective - Vital Signs/Intake and Output Vital Signs (last 24 hours): Temp Pulse Resp BP Pulse Ox 97.3 F L 56 L 19 142/70 98 03/16/17 08:19 03/16/17 08:19 03/16/17 08:19 03/16/17 08:19 03/16/17 08:19 - Medications Medications: Current Medications Acetaminophen (Tylenol 325mg Tab) 650 mg PO Q6 PRN PRN Reason: Pain 4-10 Last Admin: 03/08/17 09:42 Dose: 650 mg Amlodipine Besylate (Norvasc) 10 mg PO DAILY [facility] Last Admin: 03/16/17 08:19 Dose: 10 mg Aspirin (Aspirin Chewable) 81 mg PO DAILY [facility] Last Admin: 03/16/17 08:19 Dose: 81 mg Atorvastatin Calcium (Lipitor) 40 mg PO HS [facility] Last Admin: 03/15/17 21:12 Dose: 40 mg Cyanocobalamin (Vitamin B12 1000 Mcg Tab) 1,000 mcg PO DAILY [facility] Last Admin: 03/16/17 08:18 Dose: 1,000 mcg Docusate Sodium (Colace) 100 mg PO BID [facility] Last Admin: 03/16/17 17:20 Dose: 100 mg Famotidine (Pepcid) 20 mg PO BID [facility] Last Admin: 03/16/17 17:20 Dose: 20 mg Ferrous Sulfate (Feosol) 325 mg PO DAILY [facility] Last Admin: 03/16/17 08:18 Dose: 325 mg Folic Acid (Folic Acid) 1 mg PO DAILY [facility] Last Admin: 03/16/17 08:19 Dose: 1 mg Insulin Human Regular (Humulin R) 0 units [place] 0630 [facility] PRN Reason: Protocol Last Admin: 03/16/17 06:26 Dose: Not Given Thiamine HCl (Vitamin B1 Tab) 100 mg PO DAILY [facility] Last Admin: 03/16/17 08:19 Dose: 100 mg Valsartan (Diovan) 320 mg PO DAILY [facility] Last Admin: 03/16/17 08:19 Dose: 320 mg - Labs Labs: 03/08/17 05:20 03/01/17 06:40 PT 34.6 SECONDS (9.6-11.2) H* D 03/16/17 05:20 INR 3.33 (0.92-1.08) H 03/16/17 05:20 - Head Exam Head Exam: ATRAUMATIC, NORMAL INSPECTION, NORMOCEPHALIC - Eye Exam Pupil Exam: NORMAL ACCOMODATION - ENT Exam ENT Exam: Mucous Membranes Moist, Normal Exam - Respiratory Exam Respiratory Exam: NORMAL BREATHING PATTERN - Cardiovascular Exam Cardiovascular Exam: REGULAR RHYTHM - GI/Abdominal Exam GI & Abdominal Exam: Normal Bowel Sounds - Rectal Exam Rectal Exam: NORMAL INSPECTION - Exam External exam: NORMAL EXTERNAL EXAM - Extremities Exam Extremities Exam: Normal Inspection - Back Exam Back Exam: NORMAL INSPECTION - Neurological Exam Neurological Exam: Alert, Awake Neuro motor strength exam: Left Upper Extremity: 3, Right Upper Extremity: 3, Left Lower Extremity: 3, Right Lower Extremity: 3 - Psychiatric Exam Psychiatric exam: Normal Affect - Skin Skin Exam: Dry, Normal Color Assessment and Plan (1) Dizzinesses Status: Acute (2) Malignant hypertension Status: Acute (3) Constipation Status: Chronic (4) TIA (transient ischemic attack) Assessment & Plan: hold therapy untill INR is more stable. Follow with pmd then restart Physical, occupational, speech and rec therapy left leg healing as per podiatry Status: Acute (5) Leg ulcer, left Status: Chronic (6) Infected wound Status: Acute (7) Effusion of right knee Status: Acute (8) CVA (cerebral vascular accident) Status: Acute
--- NOTE | 2017-03-17 00:51 | CP.PCM.PN ---
Subjective - Date & Time of Evaluation Date of Evaluation: 03/16/17 Time of Evaluation: 12:00 Objective - Vital Signs/Intake and Output Vital Signs (last 24 hours): Temp Pulse Resp BP Pulse Ox 97.2 F L 53 L 20 115/67 98 03/16/17 21:03 03/16/17 21:03 03/16/17 21:03 03/16/17 21:03 03/16/17 21:03 - Medications Medications: Current Medications Acetaminophen (Tylenol 325mg Tab) 650 mg PO Q6 PRN PRN Reason: Pain 4-10 Last Admin: 03/08/17 09:42 Dose: 650 mg Amlodipine Besylate (Norvasc) 10 mg PO DAILY [facility] Last Admin: 03/16/17 08:19 Dose: 10 mg Aspirin (Aspirin Chewable) 81 mg PO DAILY [facility] Last Admin: 03/16/17 08:19 Dose: 81 mg Atorvastatin Calcium (Lipitor) 40 mg PO HS [facility] Last Admin: 03/16/17 21:23 Dose: 40 mg Cyanocobalamin (Vitamin B12 1000 Mcg Tab) 1,000 mcg PO DAILY [facility] Last Admin: 03/16/17 08:18 Dose: 1,000 mcg Docusate Sodium (Colace) 100 mg PO BID [facility] Last Admin: 03/16/17 17:20 Dose: 100 mg Famotidine (Pepcid) 20 mg PO BID [facility] Last Admin: 03/16/17 17:20 Dose: 20 mg Ferrous Sulfate (Feosol) 325 mg PO DAILY [facility] Last Admin: 03/16/17 08:18 Dose: 325 mg Folic Acid (Folic Acid) 1 mg PO DAILY [facility] Last Admin: 03/16/17 08:19 Dose: 1 mg Insulin Human Regular (Humulin R) 0 units [place] 0630 [facility] PRN Reason: Protocol Last Admin: 03/16/17 06:26 Dose: Not Given Thiamine HCl (Vitamin B1 Tab) 100 mg PO DAILY [facility] Last Admin: 03/16/17 08:19 Dose: 100 mg Valsartan (Diovan) 320 mg PO DAILY [facility] Last Admin: 03/16/17 08:19 Dose: 320 mg - Labs Labs: 03/08/17 05:20 03/01/17 06:40 PT 34.6 SECONDS (9.6-11.2) H* D 03/16/17 05:20 INR 3.33 (0.92-1.08) H 03/16/17 05:20 Assessment and Plan (1) CVA (cerebral vascular accident) Status: Acute (2) Constipation Status: Chronic (3) Leg ulcer, left Status: Chronic (4) Hypertension Status: Chronic (5) UTI (urinary tract infection) Status: Resolved (6) BPH (benign prostatic hyperplasia) Status: Chronic
[2017-03-17] MEDS: Insulin Regular 100 units/ml SC SCH (06:41)
--- NOTE | 2017-03-17 06:55 | CP.PCM.PN ---
Subjective - Date & Time of Evaluation Date of Evaluation: 03/17/17 Time of Evaluation: 06:50 - Subjective Subjective: 71 y/o male pt seen at bedside in rehab concerning progress of left leg ulceration. Pt was sleeping upon arrival, easily roused form slumber. Pt reports minor overnight pain to left leg, graded a 2/10 at peak, localized, to area of ulcer. .Physical therapy is progressing well. Denies f/n/v/c/sob/cp. Denies any other problems at this time. Objective - Vital Signs/Intake and Output Vital Signs (last 24 hours): Temp Pulse Resp BP Pulse Ox 97.2 F L 53 L 20 115/67 98 03/16/17 21:03 03/16/17 21:03 03/16/17 21:03 03/16/17 21:03 03/16/17 21:03 - Medications Medications: Current Medications Acetaminophen (Tylenol 325mg Tab) 650 mg PO Q6 PRN PRN Reason: Pain 4-10 Last Admin: 03/17/17 03:06 Dose: 650 mg Amlodipine Besylate (Norvasc) 10 mg PO DAILY [facility] Last Admin: 03/16/17 08:19 Dose: 10 mg Aspirin (Aspirin Chewable) 81 mg PO DAILY [facility] Last Admin: 03/16/17 08:19 Dose: 81 mg Atorvastatin Calcium (Lipitor) 40 mg PO HS [facility] Last Admin: 03/16/17 21:23 Dose: 40 mg Cyanocobalamin (Vitamin B12 1000 Mcg Tab) 1,000 mcg PO DAILY [facility] Last Admin: 03/16/17 08:18 Dose: 1,000 mcg Docusate Sodium (Colace) 100 mg PO BID [facility] Last Admin: 03/16/17 17:20 Dose: 100 mg Famotidine (Pepcid) 20 mg PO BID [facility] Last Admin: 03/16/17 17:20 Dose: 20 mg Ferrous Sulfate (Feosol) 325 mg PO DAILY [facility] Last Admin: 03/16/17 08:18 Dose: 325 mg Folic Acid (Folic Acid) 1 mg PO DAILY [facility] Last Admin: 03/16/17 08:19 Dose: 1 mg Insulin Human Regular (Humulin R) 0 units [place] 0630 [facility] PRN Reason: Protocol Last Admin: 03/17/17 06:41 Dose: Not Given Thiamine HCl (Vitamin B1 Tab) 100 mg PO DAILY [facility] Last Admin: 03/16/17 08:19 Dose: 100 mg Valsartan (Diovan) 320 mg PO DAILY [facility] Last Admin: 03/16/17 08:19 Dose: 320 mg - Labs Labs: 03/08/17 05:20 03/01/17 06:40 PT 34.6 SECONDS (9.6-11.2) H* D 03/16/17 05:20 INR 3.33 (0.92-1.08) H 03/16/17 05:20 - Constitutional Appears: Well, Non-toxic, No Acute Distress - Extremities Exam Additional comments: LLE exam: Dressing to left leg appears c/d/i. VASC- DP pulses palpable 1/4 BL, PT pulses non-palpable bl, skin temp runs warm to cool bl, cft <3 sec to digits x 10, no pedal edema appreciated NEURO- gross pedal sensation is intact bl DERM- Minor 2 x 2 cm superficial ulceration along lateral border of leg at distal 1/3 level, absent acute signs of infection. Noted prior uma-lateral ulceration site has full dermal thickness resptored , has undergone early- stage re-epithelialization, though remains hypo-pigmented has not returned. This patch measures 11.5 x 7.5cm. ORTHO- no pain to palpation wound - Neurological Exam Neurological Exam: Alert, Awake, Oriented x3 - Skin Skin Exam: Intact, Normal Color, Warm Assessment and Plan - Assessment and Plan (Free Text) Assessment: 71 yo male patient w/ pmhx PVD, HTN, CVA, recent TIA, chronic left leg ulceration (non-infected), secondary to venous insufficiency. Plan: -Pt evaluated and treated at bedside. -Plan discussed w/ attending Dr. Hernandez -Chart, labs, vitals reviewed: afebrile, no leukocystosis. Elevated PT and INR noted. -Left leg dress w/ xeroform, DSD, kerlix applied. Nurse staff to continue dressing changes every other day. -Use cast bag for showering -Pt noted to be transferred to [facility] within by next week. Will f/u w/ Dr. Quintero in [facility]. -Stable per podiatry, for discharge. -Podiatry will continue to follow, will see weekly.
--- NOTE | 2017-03-17 23:48 | CP.PCM.PN ---
Subjective - Date & Time of Evaluation Date of Evaluation: 03/17/17 Time of Evaluation: 12:30 Objective - Vital Signs/Intake and Output Vital Signs (last 24 hours): Temp Pulse Resp BP Pulse Ox 96.0 F L 70 20 127/83 98 03/17/17 21:00 03/17/17 21:00 03/17/17 21:00 03/17/17 21:00 03/17/17 21:00 - Medications Medications: Current Medications Acetaminophen (Tylenol 325mg Tab) 650 mg PO Q6 PRN PRN Reason: Pain 4-10 Last Admin: 03/17/17 03:06 Dose: 650 mg Amlodipine Besylate (Norvasc) 10 mg PO DAILY [facility] Last Admin: 03/17/17 08:23 Dose: 10 mg Aspirin (Aspirin Chewable) 81 mg PO DAILY [facility] Last Admin: 03/17/17 08:24 Dose: 81 mg Atorvastatin Calcium (Lipitor) 40 mg PO HS [facility] Last Admin: 03/17/17 21:02 Dose: 40 mg Cyanocobalamin (Vitamin B12 1000 Mcg Tab) 1,000 mcg PO DAILY [facility] Last Admin: 03/17/17 08:23 Dose: 1,000 mcg Docusate Sodium (Colace) 100 mg PO BID [facility] Last Admin: 03/17/17 17:34 Dose: 100 mg Famotidine (Pepcid) 20 mg PO BID [facility] Last Admin: 03/17/17 17:35 Dose: 20 mg Ferrous Sulfate (Feosol) 325 mg PO DAILY [facility] Last Admin: 03/17/17 08:23 Dose: 325 mg Folic Acid (Folic Acid) 1 mg PO DAILY [facility] Last Admin: 03/17/17 08:24 Dose: 1 mg Insulin Human Regular (Humulin R) 0 units [place] 0630 [facility] PRN Reason: Protocol Last Admin: 03/17/17 06:41 Dose: Not Given Thiamine HCl (Vitamin B1 Tab) 100 mg PO DAILY [facility] Last Admin: 03/17/17 08:23 Dose: 100 mg Valsartan (Diovan) 320 mg PO DAILY [facility] Last Admin: 03/17/17 08:24 Dose: 320 mg - Labs Labs: 03/08/17 05:20 03/01/17 06:40 PT 36.2 SECONDS (9.6-11.2) H* 03/17/17 05:15 INR 3.48 (0.92-1.08) H 03/17/17 05:15 Assessment and Plan (1) CVA (cerebral vascular accident) Status: Acute (2) Constipation Status: Chronic (3) Leg ulcer, left Status: Chronic (4) Hypertension Status: Chronic (5) UTI (urinary tract infection) Status: Resolved (6) BPH (benign prostatic hyperplasia) Status: Chronic
[2017-03-18] MEDS: Insulin Regular 100 units/ml SC SCH (06:22)
--- NOTE | 2017-03-18 15:57 | CP.PCM.PN ---
Subjective - Date & Time of Evaluation Date of Evaluation: 03/18/17 Time of Evaluation: 16:00 Objective - Vital Signs/Intake and Output Vital Signs (last 24 hours): Temp Pulse Resp BP Pulse Ox 97 F L 84 19 138/77 97 03/18/17 08:00 03/18/17 09:11 03/18/17 08:00 03/18/17 09:11 03/18/17 08:00 - Medications Medications: Current Medications Acetaminophen (Tylenol 325mg Tab) 650 mg PO Q6 PRN PRN Reason: Pain 4-10 Last Admin: 03/18/17 02:04 Dose: 650 mg Amlodipine Besylate (Norvasc) 10 mg PO DAILY [facility] Last Admin: 03/18/17 09:11 Dose: 10 mg Aspirin (Aspirin Chewable) 81 mg PO DAILY [facility] Last Admin: 03/18/17 09:10 Dose: 81 mg Atorvastatin Calcium (Lipitor) 40 mg PO HS [facility] Last Admin: 03/17/17 21:02 Dose: 40 mg Cyanocobalamin (Vitamin B12 1000 Mcg Tab) 1,000 mcg PO DAILY [facility] Last Admin: 03/18/17 09:10 Dose: 1,000 mcg Docusate Sodium (Colace) 100 mg PO BID [facility] Last Admin: 03/18/17 09:11 Dose: 100 mg Famotidine (Pepcid) 20 mg PO BID [facility] Last Admin: 03/18/17 09:10 Dose: 20 mg Ferrous Sulfate (Feosol) 325 mg PO DAILY [facility] Last Admin: 03/18/17 09:10 Dose: 325 mg Folic Acid (Folic Acid) 1 mg PO DAILY [facility] Last Admin: 03/18/17 09:10 Dose: 1 mg Insulin Human Regular (Humulin R) 0 units [place] 0630 [facility] PRN Reason: Protocol Last Admin: 03/18/17 06:22 Dose: Not Given Thiamine HCl (Vitamin B1 Tab) 100 mg PO DAILY [facility] Last Admin: 03/18/17 09:10 Dose: 100 mg Valsartan (Diovan) 320 mg PO DAILY [facility] Last Admin: 03/18/17 09:10 Dose: 320 mg Warfarin Sodium (Coumadin) 6 mg PO ONCE ONE PRN Reason: Protocol Stop: 03/18/17 17:01 - Labs Labs: 03/08/17 05:20 03/01/17 06:40 PT 20.2 SECONDS (9.6-11.2) H D 03/18/17 07:30 INR 1.94 (0.92-1.08) H D 03/18/17 07:30 Assessment and Plan (1) CVA (cerebral vascular accident) Status: Acute (2) Constipation Status: Chronic (3) Leg ulcer, left Status: Chronic (4) Hypertension Status: Chronic (5) UTI (urinary tract infection) Status: Resolved (6) BPH (benign prostatic hyperplasia) Status: Chronic
[2017-03-19] MEDS: Insulin Regular 100 units/ml SC SCH (06:26)
[2017-03-20] MEDS: Insulin Regular 100 units/ml SC SCH (06:14)
--- NOTE | 2017-03-20 21:51 | CP.PCM.PN ---
Subjective - Date & Time of Evaluation Date of Evaluation: 03/20/17 Time of Evaluation: 18:50 - Subjective Subjective: Seen and examined at the bed side. C/O Mild pain to the left leg. Denies fever or chills. Tolerating soft Mechanical chopped diet. Objective - Vital Signs/Intake and Output Vital Signs (last 24 hours): Temp Pulse Resp BP Pulse Ox 98.4 F 61 20 133/74 99 03/20/17 20:54 03/20/17 20:54 03/20/17 20:54 03/20/17 20:54 03/20/17 20:54 - Medications Medications: Current Medications Acetaminophen (Tylenol 325mg Tab) 650 mg PO Q6 PRN PRN Reason: Pain 4-10 Last Admin: 03/19/17 08:48 Dose: 650 mg Amlodipine Besylate (Norvasc) 10 mg PO DAILY [facility] Last Admin: 03/20/17 08:26 Dose: 10 mg Aspirin (Aspirin Chewable) 81 mg PO DAILY [facility] Last Admin: 03/20/17 08:27 Dose: 81 mg Atorvastatin Calcium (Lipitor) 40 mg PO HS [facility] Last Admin: 03/20/17 21:19 Dose: 40 mg Cyanocobalamin (Vitamin B12 1000 Mcg Tab) 1,000 mcg PO DAILY [facility] Last Admin: 03/20/17 08:27 Dose: 1,000 mcg Docusate Sodium (Colace) 100 mg PO BID [facility] Last Admin: 03/20/17 16:41 Dose: 100 mg Famotidine (Pepcid) 20 mg PO BID [facility] Last Admin: 03/20/17 16:41 Dose: 20 mg Ferrous Sulfate (Feosol) 325 mg PO DAILY [facility] Last Admin: 03/20/17 08:27 Dose: 325 mg Folic Acid (Folic Acid) 1 mg PO DAILY [facility] Last Admin: 03/20/17 08:27 Dose: 1 mg Insulin Human Regular (Humulin R) 0 units [place] 0630 [facility] PRN Reason: Protocol Last Admin: 03/20/17 06:14 Dose: Not Given Thiamine HCl (Vitamin B1 Tab) 100 mg PO DAILY [facility] Last Admin: 03/20/17 08:27 Dose: 100 mg Valsartan (Diovan) 320 mg PO DAILY [facility] Last Admin: 03/20/17 08:26 Dose: 320 mg - Labs Labs: 03/08/17 05:20 03/01/17 06:40 PT 17.3 SECONDS (9.6-11.2) H 03/20/17 05:20 INR 1.66 (0.92-1.08) H 03/20/17 05:20 - Constitutional Appears: Well, No Acute Distress - Head Exam Head Exam: ATRAUMATIC, NORMAL INSPECTION, NORMOCEPHALIC - Eye Exam Eye Exam: EOMI, Normal appearance, PERRL Pupil Exam: NORMAL ACCOMODATION, PERRL - ENT Exam ENT Exam: Mucous Membranes Moist, Normal Exam - Neck Exam Neck Exam: Full ROM, Normal Inspection. absent: Lymphadenopathy - Respiratory Exam Respiratory Exam: Clear to Ausculation Bilateral, NORMAL BREATHING PATTERN - Cardiovascular Exam Cardiovascular Exam: REGULAR RHYTHM, +S1, +S2. absent: Murmur - GI/Abdominal Exam GI & Abdominal Exam: Soft, Normal Bowel Sounds. absent: Tenderness - Extremities Exam Extremities Exam: Full ROM, Normal Capillary Refill, Normal Inspection. absent : Joint Swelling, Pedal Edema Additional comments: Left leg superficial ulcer. 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
[2017-03-21] MEDS: Insulin Regular 100 units/ml SC SCH (06:16)
--- NOTE | 2017-03-21 11:33 | CP.PCM.PN ---
Subjective - Date & Time of Evaluation Date of Evaluation: 03/21/17 Time of Evaluation: 11:28 - Subjective Subjective: Mr. Pascual was seen and examined today at bedside. He was found in NAD. The patient had no new complaints and was able to participate well with examination. Objective - Vital Signs/Intake and Output Vital Signs (last 24 hours): Temp Pulse Resp BP Pulse Ox 98.4 F 71 19 137/62 97 03/21/17 08:12 03/21/17 08:18 03/21/17 08:12 03/21/17 08:18 03/21/17 08:12 - Medications Medications: Current Medications Acetaminophen (Tylenol 325mg Tab) 650 mg PO Q6 PRN PRN Reason: Pain 4-10 Last Admin: 03/21/17 00:12 Dose: 650 mg Amlodipine Besylate (Norvasc) 10 mg PO DAILY [facility] Last Admin: 03/21/17 08:18 Dose: 10 mg Aspirin (Aspirin Chewable) 81 mg PO DAILY [facility] Last Admin: 03/21/17 08:15 Dose: 81 mg Atorvastatin Calcium (Lipitor) 40 mg PO HS [facility] Last Admin: 03/20/17 21:19 Dose: 40 mg Cyanocobalamin (Vitamin B12 1000 Mcg Tab) 1,000 mcg PO DAILY [facility] Last Admin: 03/21/17 08:19 Dose: 1,000 mcg Docusate Sodium (Colace) 100 mg PO BID [facility] Last Admin: 03/21/17 08:23 Dose: Not Given Famotidine (Pepcid) 20 mg PO BID [facility] Last Admin: 03/21/17 08:18 Dose: 20 mg Ferrous Sulfate (Feosol) 325 mg PO DAILY [facility] Last Admin: 03/21/17 08:18 Dose: 325 mg Folic Acid (Folic Acid) 1 mg PO DAILY [facility] Last Admin: 03/21/17 08:18 Dose: 1 mg Insulin Human Regular (Humulin R) 0 units [place] 0630 [facility] PRN Reason: Protocol Last Admin: 03/21/17 06:16 Dose: Not Given Thiamine HCl (Vitamin B1 Tab) 100 mg PO DAILY [facility] Last Admin: 03/21/17 08:19 Dose: 100 mg Valsartan (Diovan) 320 mg PO DAILY [facility] Last Admin: 03/21/17 08:17 Dose: 320 mg Warfarin Sodium (Coumadin) 7 mg PO QD5 [facility] PRN Reason: Protocol Stop: 03/21/17 17:01 - Labs Labs: 03/08/17 05:20 03/01/17 06:40 PT 17.1 SECONDS (9.6-11.2) H 03/21/17 06:10 INR 1.64 (0.92-1.08) H 03/21/17 06:10 - Neurological Exam Neurological Exam: Abnormal Gait, Alert, Awake, CN II-XII Intact Neuro motor strength exam: Left Upper Extremity: 3, Right Upper Extremity: 5, Left Lower Extremity: 3, Right Lower Extremity: 4 Additional comments: Reflexes are brisk throughout with bilateral upgoing plantar response. Ataxic bilaterally with peripheral and trunkal ataxia. - Psychiatric Exam Psychiatric exam: Normal Affect, Normal Mood - Skin Skin Exam: Dry, Intact, Normal Color, Warm Assessment and Plan (1) CVA (cerebral vascular accident) Assessment & Plan: I received his previous MRI that was done on 02/28/2017 and reviewed the imaging. 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 These findings are likely due to a cardio-embolic etiology. Continue coumadin for an INR of 2-3 as well as aspirin 81 mg daily. PT/OT/ST and cognitive therapy are recommended. I will continue to follow PRN. Status: Acute
--- NOTE | 2017-03-21 12:30 | CP.PCM.PN ---
Subjective - Date & Time of Evaluation Date of Evaluation: 03/18/17 Time of Evaluation: 17:00 - Subjective Subjective: no acute specific complaints at present Objective - Vital Signs/Intake and Output Vital Signs (last 24 hours): Temp Pulse Resp BP Pulse Ox 98.4 F 71 19 137/62 97 03/21/17 08:12 03/21/17 08:18 03/21/17 08:12 03/21/17 08:18 03/21/17 08:12 Intake and Output: 03/21/17 03/21/17 06:59 18:59 Output Total 400 Balance -400 - Medications Medications: Current Medications Acetaminophen (Tylenol 325mg Tab) 650 mg PO Q6 PRN PRN Reason: Pain 4-10 Last Admin: 03/21/17 00:12 Dose: 650 mg Amlodipine Besylate (Norvasc) 10 mg PO DAILY [facility] Last Admin: 03/21/17 08:18 Dose: 10 mg Aspirin (Aspirin Chewable) 81 mg PO DAILY [facility] Last Admin: 03/21/17 08:15 Dose: 81 mg Atorvastatin Calcium (Lipitor) 40 mg PO [facility] Last Admin: 03/20/17 21:19 Dose: 40 mg Cyanocobalamin (Vitamin B12 1000 Mcg Tab) 1,000 mcg PO DAILY [facility] Last Admin: 03/21/17 08:19 Dose: 1,000 mcg Docusate Sodium (Colace) 100 mg PO BID [facility] Last Admin: 03/21/17 08:23 Dose: Not Given Famotidine (Pepcid) 20 mg PO BID [facility] Last Admin: 03/21/17 08:18 Dose: 20 mg Ferrous Sulfate (Feosol) 325 mg PO DAILY [facility] Last Admin: 03/21/17 08:18 Dose: 325 mg Folic Acid (Folic Acid) 1 mg PO DAILY [facility] Last Admin: 03/21/17 08:18 Dose: 1 mg Insulin Human Regular (Humulin R) 0 units [place] 0630 [facility] PRN Reason: Protocol Last Admin: 03/21/17 06:16 Dose: Not Given Thiamine HCl (Vitamin B1 Tab) 100 mg PO DAILY [facility] Last Admin: 03/21/17 08:19 Dose: 100 mg Valsartan (Diovan) 320 mg PO DAILY [facility] Last Admin: 03/21/17 08:17 Dose: 320 mg Warfarin Sodium (Coumadin) 7 mg PO QD5 [facility] PRN Reason: Protocol Stop: 03/21/17 17:01 - Labs Labs: 03/08/17 05:20 03/01/17 06:40 PT 17.1 SECONDS (9.6-11.2) H 03/21/17 06:10 INR 1.64 (0.92-1.08) H 03/21/17 06:10 - Head Exam Head Exam: ATRAUMATIC, NORMAL INSPECTION, NORMOCEPHALIC - Eye Exam Eye Exam: EOMI, Normal appearance, PERRL Pupil Exam: NORMAL ACCOMODATION - ENT Exam ENT Exam: Mucous Membranes Moist, Normal Exam - Respiratory Exam Respiratory Exam: NORMAL BREATHING PATTERN - Cardiovascular Exam Cardiovascular Exam: REGULAR RHYTHM - GI/Abdominal Exam GI & Abdominal Exam: Normal Bowel Sounds - Rectal Exam Rectal Exam: NORMAL INSPECTION - Exam External exam: NORMAL EXTERNAL EXAM - Extremities Exam Extremities Exam: Normal Capillary Refill, Normal Inspection - Back Exam Back Exam: NORMAL INSPECTION - Neurological Exam Neurological Exam: Alert, Awake Neuro motor strength exam: Left Upper Extremity: 2/1, Right Upper Extremity: 3, Left Lower Extremity: 3, Right Lower Extremity: 3 - Psychiatric Exam Psychiatric exam: Normal Affect, Normal Mood - Skin Skin Exam: Intact, Normal Color Assessment and Plan (1) Dizzinesses Status: Acute (2) Malignant hypertension Status: Acute (3) Constipation Status: Chronic (4) TIA (transient ischemic attack) Assessment & Plan: plan for physical, occupational, rec therapy monitor INR and coumadin level, protime Status: Acute (5) Leg ulcer, left Status: Chronic (6) Infected wound Status: Acute (7) Effusion of right knee Status: Acute (8) CVA (cerebral vascular accident) Status: Acute
--- NOTE | 2017-03-21 12:33 | CP.PCM.PN ---
Subjective - Date & Time of Evaluation Date of Evaluation: 03/21/17 Time of Evaluation: 11:00 - Subjective Subjective: no acute complaints of neck or back pain, generalized weakness Objective - Vital Signs/Intake and Output Vital Signs (last 24 hours): Temp Pulse Resp BP Pulse Ox 98.4 F 71 19 137/62 97 03/21/17 08:12 03/21/17 08:18 03/21/17 08:12 03/21/17 08:18 03/21/17 08:12 Intake and Output: 03/21/17 03/21/17 06:59 18:59 Output Total 400 Balance -400 - Medications Medications: Current Medications Acetaminophen (Tylenol 325mg Tab) 650 mg PO Q6 PRN PRN Reason: Pain 4-10 Last Admin: 03/21/17 00:12 Dose: 650 mg Amlodipine Besylate (Norvasc) 10 mg PO DAILY [facility] Last Admin: 03/21/17 08:18 Dose: 10 mg Aspirin (Aspirin Chewable) 81 mg PO DAILY [facility] Last Admin: 03/21/17 08:15 Dose: 81 mg Atorvastatin Calcium (Lipitor) 40 mg PO HS [facility] Last Admin: 03/20/17 21:19 Dose: 40 mg Cyanocobalamin (Vitamin B12 1000 Mcg Tab) 1,000 mcg PO DAILY [facility] Last Admin: 03/21/17 08:19 Dose: 1,000 mcg Docusate Sodium (Colace) 100 mg PO BID [facility] Last Admin: 03/21/17 08:23 Dose: Not Given Famotidine (Pepcid) 20 mg PO BID [facility] Last Admin: 03/21/17 08:18 Dose: 20 mg Ferrous Sulfate (Feosol) 325 mg PO DAILY [facility] Last Admin: 03/21/17 08:18 Dose: 325 mg Folic Acid (Folic Acid) 1 mg PO DAILY [facility] Last Admin: 03/21/17 08:18 Dose: 1 mg Insulin Human Regular (Humulin R) 0 units [place] 0630 [facility] PRN Reason: Protocol Last Admin: 03/21/17 06:16 Dose: Not Given Thiamine HCl (Vitamin B1 Tab) 100 mg PO DAILY [facility] Last Admin: 03/21/17 08:19 Dose: 100 mg Valsartan (Diovan) 320 mg PO DAILY [facility] Last Admin: 03/21/17 08:17 Dose: 320 mg Warfarin Sodium (Coumadin) 7 mg PO QD5 [facility] PRN Reason: Protocol Stop: 03/21/17 17:01 - Labs Labs: 03/08/17 05:20 03/01/17 06:40 PT 17.1 SECONDS (9.6-11.2) H 03/21/17 06:10 INR 1.64 (0.92-1.08) H 03/21/17 06:10 - Head Exam Head Exam: ATRAUMATIC, NORMAL INSPECTION, NORMOCEPHALIC - Eye Exam Eye Exam: EOMI, Normal appearance, PERRL Pupil Exam: NORMAL ACCOMODATION - ENT Exam ENT Exam: Mucous Membranes Moist - Neck Exam Neck Exam: Full ROM, Normal Inspection - Respiratory Exam Respiratory Exam: NORMAL BREATHING PATTERN - Cardiovascular Exam Cardiovascular Exam: REGULAR RHYTHM - GI/Abdominal Exam GI & Abdominal Exam: Soft, Normal Bowel Sounds - Exam External exam: NORMAL EXTERNAL EXAM - Extremities Exam Extremities Exam: Normal Capillary Refill, Normal Inspection - Back Exam Back Exam: NORMAL INSPECTION - Neurological Exam Neurological Exam: Alert, Awake Neuro motor strength exam: Left Upper Extremity: 2/1, Right Upper Extremity: 3, Left Lower Extremity: 3, Right Lower Extremity: 3 - Psychiatric Exam Psychiatric exam: Normal Affect, Normal Mood - Skin Skin Exam: Dry, Intact, Normal Color Assessment and Plan (1) Dizzinesses Status: Acute (2) Malignant hypertension Status: Acute (3) Constipation Status: Chronic (4) TIA (transient ischemic attack) Assessment & Plan: continue with range of montion, strenghtening, transfers and gait training plan for physical, occupational, speech and rec therapy Status: Acute (5) Leg ulcer, left Status: Chronic (6) Infected wound Status: Acute (7) Effusion of right knee Status: Acute (8) CVA (cerebral vascular accident) Status: Acute
--- NOTE | 2017-03-21 23:40 | CP.PCM.PN ---
Subjective - Date & Time of Evaluation Date of Evaluation: 03/21/17 Time of Evaluation: 11:30 Objective - Vital Signs/Intake and Output Vital Signs (last 24 hours): Temp Pulse Resp BP Pulse Ox 97.7 F 63 20 123/75 97 03/21/17 20:20 03/21/17 20:20 03/21/17 20:20 03/21/17 20:20 03/21/17 20:20 Intake and Output: 03/21/17 03/22/17 18:59 06:59 Output Total 400 Balance -400 - Medications Medications: Current Medications Acetaminophen (Tylenol 325mg Tab) 650 mg PO Q6 PRN PRN Reason: Pain 4-10 Last Admin: 03/21/17 21:17 Dose: 650 mg Amlodipine Besylate (Norvasc) 10 mg PO DAILY [facility] Last Admin: 03/21/17 08:18 Dose: 10 mg Aspirin (Aspirin Chewable) 81 mg PO DAILY [facility] Last Admin: 03/21/17 08:15 Dose: 81 mg Atorvastatin Calcium (Lipitor) 40 mg PO [facility] Last Admin: 03/21/17 21:18 Dose: 40 mg Cyanocobalamin (Vitamin B12 1000 Mcg Tab) 1,000 mcg PO DAILY [facility] Last Admin: 03/21/17 08:19 Dose: 1,000 mcg Docusate Sodium (Colace) 100 mg PO BID [facility] Last Admin: 03/21/17 16:09 Dose: Not Given Famotidine (Pepcid) 20 mg PO BID [facility] Last Admin: 03/21/17 16:11 Dose: 20 mg Ferrous Sulfate (Feosol) 325 mg PO DAILY [facility] Last Admin: 03/21/17 08:18 Dose: 325 mg Folic Acid (Folic Acid) 1 mg PO DAILY [facility] Last Admin: 03/21/17 08:18 Dose: 1 mg Insulin Human Regular (Humulin R) 0 units [place] 0630 [facility] PRN Reason: Protocol Last Admin: 03/21/17 06:16 Dose: Not Given Thiamine HCl (Vitamin B1 Tab) 100 mg PO DAILY [facility] Last Admin: 03/21/17 08:19 Dose: 100 mg Valsartan (Diovan) 320 mg PO DAILY [facility] Last Admin: 03/21/17 08:17 Dose: 320 mg - Labs Labs: 03/08/17 05:20 03/01/17 06:40 PT 17.1 SECONDS (9.6-11.2) H 03/21/17 06:10 INR 1.64 (0.92-1.08) H 03/21/17 06:10 Assessment and Plan (1) CVA (cerebral vascular accident) Status: Acute (2) Constipation Status: Chronic (3) Leg ulcer, left Status: Chronic (4) Hypertension Status: Chronic (5) UTI (urinary tract infection) Status: Resolved (6) BPH (benign prostatic hyperplasia) Status: Chronic
[2017-03-22] MEDS: Insulin Regular 100 units/ml SC SCH (06:39)
--- NOTE | 2017-03-22 12:06 | PSY.TMCNF ---
Nursing - Vital Signs Vital Signs (Last 8 hours): Vital Signs 03/22/17 03/22/17 03/22/17 08:14 08:29 08:49 Temperature 97.4 F L 97.4 F L Pulse Rate 65 65 Respiratory 20 20 Rate Blood Pressure 133/74 133/74 133/74 O2 Sat by Pulse 99 Oximetry Pain: 0 - Precautions: Precautions: Fall Prevention, Aspiration, Pressure Ulcer - Medications/Other Issues Comment: Pt at moderate nutritional risk. goals: 1. Pt to consume 75-100% of meals(met, continue). 2. Blood glucoses to be between 70-180 mg/dl(met, continue). Follow-up due on 03/27/2017 - Consults Comment: , , - Wound Left Lower Calf Wound Type: Stasis Ulcer Wound Shape: Irregular Wound Dressing Status: Dry & Intact Dressing Changed: Yes Wound Primary Dressing Type: Medicated Gauze Pads Wound Secondary Dressing Type: Gauze Roll/Wrap - Toileting Toileting: Dependent - Bladder Management Bladder Pattern: Normal Voiding Method: Urinal, Diaper Bladder Management: Dependent Frequency of Accidents: >5 - Bowel Management Bowel Pattern: Normal Bowel Management: Dependent Frequency of Accidents: 3 - Transfers Transfers: Minimal Assistance - ADL's ADL's: Maximal Assistance - Pain Management Comments: On Motrin 400 mg q8h for pain on left buttock - Patient/Family Teaching Comments: Care post CVA and safety precautions - Goals/Time Frame Comments: Per multidisciplinary care plan and goals Physical Therapy - Bed Mobility Bed Mobility: Supervision, Verbal Cues Comment: -bed mobility assessed on flat mat surface in therapy gym; S with step by step cues for sequencingCGA sit to supine. min A supine to sit on mat table - Transfers Sit to Stand: Verbal Cues, Contact Guard - Ambulation Level of Assistance: Supervision, Verbal Cues, Contact Guard, Minimal Assistance Distance (ft.): 150 Assistive Devices: Wide base quad cane - Stair Negotiation Stairs: Level of Assistance: Minimal Assistance Number of Stairs: 6 Stairs: Assistive Devices: Left Handrail, Right Handrail Comment: 6 6 inch steps, step to pattern, min A/mod A. 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 - min A for trunk control and safety. -requires cues to move forwards on each step prior to descent to enable decreased distance to have to mobilize LLE - Standing Balance Static Stand: Contact Guard Assist Dynamic Stand: Minimal Assistance - Pain Pain (assessed during therapy session): 0 - Insight/Carryover Insight/Carryover: Good - Patient/Family Education Comment: Provided pt with educaiton regarding stroke recovery and safety awareness. - Assessment/Plan Assessment: Pt continues to be agreeable to participate in 1:1 and group recreation therapy sessions. Pt enjoys participating in cognitive leisure tasks. Pt demonstrates improved mood state and does well with tasks. Pt declined to participate in stroke support group session. - Goals Timeframe: 1 week Goals: stgs. pt will complete LE dressing at level no lower than S. Patient will complete tub bench transfers using AD with minimal assistance. Patient will complete upper body dressing with minimal assistance. (met). pt will complete toilet txfer with AD at S level. pt will complete bed to chair transfer with AD at S level. ltgs. Will complete home mangement tasks with incidental assist. Patient will complete lower body bathing with supervision/ setup assistance. Patient will complete upper body bathing with supervision/ setup assistance. Will complete lower body dressing with supervision. Will complete upper body dressing with S after set up (met). Will complete transfers with [facility] for SPT to/from tub-bench with incidental assistance. Will complete transfers with [facility] for SPT to/from commode with incidental assistance. Will complete transfers with [facility] for SPT to/from bed and chair with incidental assistance. - Provider Therapist: Laura Green PT, DPT License Number: [id number] Occupational Therapy - Arousal/Attention/Orientation Patient Orientation: Person, Place, Time, Appropriate to Age, Appropriate to Situation - ADL/IADL Self Feeding: Supervision, Set-up Help Grooming: Supervision Bathing-Upper Extremity: Minimal Assistance Bathing-Lower Extremity: Moderate Assistance Dressing-Upper Extremity: Supervision Dressing-Lower Extremity: Minimal Assistance Homemaking: Dependent - Sitting Balance Static Sitting: Independent without upper extremity support Dynamic Sitting: Reaches across midline, Reaches out of base of support, Requires supervision - Transfers Wheelchair to Bed Transfers: Minimal Assistance Toilet Transfers: Minimal Assistance - Wheelchair Management Level of Assistance: Dependent Distance (ft.): 0 - Upper Extremity Status Right Upper Extremity Comment: ROM WFL MMT grossly 4+/5 Left Upper Extremity Comment: LUE MMT grossly 3-/5, shoulder flexion 2+/5, ROM limited with forearm supination and flexion/abduction to approx 90* - Pain Pain (assessed during therapy session): 0 - Insight/Carryover Insight/Carryover: Good - Patient/Family Education Comment: Provided pt with educaiton regarding stroke recovery and safety awareness. - Assessment/Plan Assessment: Pt continues to be agreeable to participate in 1:1 and group recreation therapy sessions. Pt enjoys participating in cognitive leisure tasks. Pt demonstrates improved mood state and does well with tasks. Pt declined to participate in stroke support group session. - Goals Timeframe: 1 week Goals: stgs. pt will complete LE dressing at level no lower than S. Patient will complete tub bench transfers using AD with minimal assistance. Patient will complete upper body dressing with minimal assistance. (met). pt will complete toilet txfer with AD at S level. pt will complete bed to chair transfer with AD at S level. ltgs. Will complete home mangement tasks with incidental assist. Patient will complete lower body bathing with supervision/ setup assistance. Patient will complete upper body bathing with supervision/ setup assistance. Will complete lower body dressing with supervision. Will complete upper body dressing with S after set up (met). Will complete transfers with [facility] for SPT to/from tub-bench with incidental assistance. Will complete transfers with [facility] for SPT to/from commode with incidental assistance. Will complete transfers with [facility] for SPT to/from bed and chair with incidental assistance. - Provider Therapist: Aury Simms Speech Therapy - Consult Information Patient on Program: Yes Medical Diagnosis: CVA Treatment Diagnosis: moderate dysphagia - Assessment Dysphagia/Swallowing Impairment: Moderate Comment: finely chopped solids/nectar thick liquids - Plan Assessment: Pt continues to be agreeable to participate in 1:1 and group recreation therapy sessions. Pt enjoys participating in cognitive leisure tasks. Pt demonstrates improved mood state and does well with tasks. Pt declined to participate in stroke support group session. Plan: Continue Dysphagia Therapy - Provider Therapist: Niesha Russ License Number: [id number] Recreational Therapy - Participation Participation: Participates in Individual and/or Group Sessions - Attendance Attendance: 3-5 times per week - Activities Leisure Activities: Cards and Games - Socialization Level of Socialization: Initiates/interacts freely with care givers and peer - Diversional Time Diversional Time: television, games - Assessment Assessment/Plan: Pt continues to be agreeable to participate in 1:1 and group recreation therapy sessions. Pt enjoys participating in cognitive leisure tasks. Pt demonstrates improved mood state and does well with tasks. Pt declined to participate in stroke support group session. Problems Currently Limiting Participation: L side weakness, decrease leisure awareness level Goals and Time Frame: Pt will be encouraged to participate in 1:1 and group recreation therapy sessions 3-5x week to improve leisure awareness level, mood state, and improve speech intelligibility. - Provider Therapist: Krissy Galvez, [employer] DIRECTOR #[id number] Nutrition - Current Diet Current Diet/ Supplement/ Feedings: Mech altered(finely chopped) [place] Thick Liquids - Appetite Percent Meal Consumed: 75-100% - Comments Comments: Care post CVA and safety precautions - Assessment/Goals/Time Frame Assessment/Goals/Time Frame: Pt at moderate nutritional risk. goals: 1. Pt to consume 75-100% of meals(met, continue). 2. Blood glucoses to be between 70- 180 mg/dl(met, continue). Follow-up due on 03/27/2017 - Provider Provider: Keri Branch RD Case Management - Psychosocial Assessment Support Systems: Patient lives alone with limited support during the day, however, son Ankur Chapin is supportive and visits occasionally- [phone] Psychological Interventions/Needs: Patient is alert and oriented x3 and able to verbalize needs. Patient is motivated and cooperative in therapy Discharge Concerns: Patient lives alone with very limited support during the day , patient also with 20+ steps to negotiate at home. Patient/Family Meeting: CM met with patient and rehab team Intervention/Goal/Outcome:: 1. Plan: MARIA ANTONIA- patient limited recently due to L gluteal pain- currently requiring min-mod A for gait, transfer and ADLs- CM and rehab team discussed progress and recommendations with patient- patient in agreement to MARIA ANTONIA at [facility] after completion of acute rehab- patient also requesting to have [facility] for homecare services endorsed to [facility] prior to transfer. 2. Tentative discharge date: 03/24/2017. 3. CM to contact family to coordinate transfer - Discharge Plan Discharge Plan: Subacute care - Provider Provider: TERENCE Grande LSW License Number: [id number] Rehabilitation Plan - Treatment Plan Treatment Plan: Physical Therapy, Occupational Therapy, Speech, Dietary - Recommendation Recommendation: Physical Therapy, Occupational Therapy, Speech, Dietary, Patient /Family Education - Discharge Plan Discharge to: Subacute (03/24)
--- NOTE | 2017-03-22 13:06 | CP.PCM.PN ---
Subjective - Date & Time of Evaluation Date of Evaluation: 03/22/17 Time of Evaluation: 09:00 - Subjective Subjective: no acute complaints at present Objective - Vital Signs/Intake and Output Vital Signs (last 24 hours): Temp Pulse Resp BP Pulse Ox 97.4 F L 65 20 133/74 99 03/22/17 08:49 03/22/17 08:49 03/22/17 08:49 03/22/17 08:49 03/22/17 08:14 - Medications Medications: Current Medications Acetaminophen (Tylenol 325mg Tab) 650 mg PO Q6 PRN PRN Reason: Pain 4-10 Last Admin: 03/21/17 21:17 Dose: 650 mg Amlodipine Besylate (Norvasc) 10 mg PO DAILY [facility] Last Admin: 03/22/17 08:29 Dose: 10 mg Aspirin (Aspirin Chewable) 81 mg PO DAILY [facility] Last Admin: 03/22/17 08:28 Dose: 81 mg Atorvastatin Calcium (Lipitor) 40 mg PO HS [facility] Last Admin: 03/21/17 21:18 Dose: 40 mg Cyanocobalamin (Vitamin B12 1000 Mcg Tab) 1,000 mcg PO DAILY [facility] Last Admin: 03/22/17 08:29 Dose: 1,000 mcg Docusate Sodium (Colace) 100 mg PO BID [facility] Last Admin: 03/22/17 08:33 Dose: Not Given Famotidine (Pepcid) 20 mg PO BID [facility] Last Admin: 03/22/17 08:28 Dose: 20 mg Ferrous Sulfate (Feosol) 325 mg PO DAILY [facility] Last Admin: 03/22/17 08:29 Dose: 325 mg Folic Acid (Folic Acid) 1 mg PO DAILY [facility] Last Admin: 03/22/17 08:28 Dose: 1 mg Insulin Human Regular (Humulin R) 0 units [place] 0630 [facility] PRN Reason: Protocol Last Admin: 03/22/17 06:39 Dose: Not Given Thiamine HCl (Vitamin B1 Tab) 100 mg PO DAILY [facility] Last Admin: 03/22/17 08:29 Dose: 100 mg Valsartan (Diovan) 320 mg PO DAILY [facility] Last Admin: 03/22/17 08:29 Dose: 320 mg Warfarin Sodium (Coumadin) 5 mg PO 1700 ONE Stop: 03/22/17 17:01 Warfarin Sodium (Coumadin) 2 mg PO 1700 ONE Stop: 03/22/17 17:01 - Labs Labs: 03/08/17 05:20 03/01/17 06:40 PT 18.7 SECONDS (9.6-11.2) H 03/22/17 06:39 INR 1.80 (0.92-1.08) H 03/22/17 06:39 - Head Exam Head Exam: ATRAUMATIC, NORMAL INSPECTION, NORMOCEPHALIC - Eye Exam Eye Exam: EOMI, Normal appearance, PERRL Pupil Exam: NORMAL ACCOMODATION, PERRL - ENT Exam ENT Exam: Mucous Membranes Moist, Normal Exam - Neck Exam Neck Exam: Normal Inspection - Respiratory Exam Respiratory Exam: NORMAL BREATHING PATTERN - Cardiovascular Exam Cardiovascular Exam: REGULAR RHYTHM - GI/Abdominal Exam GI & Abdominal Exam: Soft, Normal Bowel Sounds - Rectal Exam Rectal Exam: NORMAL INSPECTION - Exam External exam: NORMAL EXTERNAL EXAM - Extremities Exam Extremities Exam: Normal Capillary Refill, Normal Inspection - Back Exam Back Exam: NORMAL INSPECTION - Neurological Exam Neurological Exam: Alert, Awake Neuro motor strength exam: Left Upper Extremity: 2/1, Right Upper Extremity: 3, Left Lower Extremity: 3, Right Lower Extremity: 3 - Psychiatric Exam Psychiatric exam: Normal Affect, Normal Mood - Skin Skin Exam: Dry, Intact Assessment and Plan (1) Dizzinesses Status: Acute (2) Malignant hypertension Status: Acute (3) Constipation Status: Chronic (4) TIA (transient ischemic attack) Assessment & Plan: physical, occupational, rec therapy Dc for 03/24 subacute rehab Shiner myles Status: Acute (5) Leg ulcer, left Status: Chronic (6) Infected wound Status: Acute (7) Effusion of right knee Status: Acute (8) CVA (cerebral vascular accident) Status: Acute
--- NOTE | 2017-03-22 13:12 | CP.PCM.PN ---
Subjective - Date & Time of Evaluation Date of Evaluation: 03/22/17 Time of Evaluation: 13:00 Objective - Vital Signs/Intake and Output Vital Signs (last 24 hours): Temp Pulse Resp BP Pulse Ox 97.4 F L 65 20 133/74 99 03/22/17 08:49 03/22/17 08:49 03/22/17 08:49 03/22/17 08:49 03/22/17 08:14 - Medications Medications: Current Medications Acetaminophen (Tylenol 325mg Tab) 650 mg PO Q6 PRN PRN Reason: Pain 4-10 Last Admin: 03/21/17 21:17 Dose: 650 mg Amlodipine Besylate (Norvasc) 10 mg PO DAILY [facility] Last Admin: 03/22/17 08:29 Dose: 10 mg Aspirin (Aspirin Chewable) 81 mg PO DAILY [facility] Last Admin: 03/22/17 08:28 Dose: 81 mg Atorvastatin Calcium (Lipitor) 40 mg PO HS [facility] Last Admin: 03/21/17 21:18 Dose: 40 mg Cyanocobalamin (Vitamin B12 1000 Mcg Tab) 1,000 mcg PO DAILY [facility] Last Admin: 03/22/17 08:29 Dose: 1,000 mcg Docusate Sodium (Colace) 100 mg PO BID [facility] Last Admin: 03/22/17 08:33 Dose: Not Given Famotidine (Pepcid) 20 mg PO BID [facility] Last Admin: 03/22/17 08:28 Dose: 20 mg Ferrous Sulfate (Feosol) 325 mg PO DAILY [facility] Last Admin: 03/22/17 08:29 Dose: 325 mg Folic Acid (Folic Acid) 1 mg PO DAILY [facility] Last Admin: 03/22/17 08:28 Dose: 1 mg Insulin Human Regular (Humulin R) 0 units [place] 0630 [facility] PRN Reason: Protocol Last Admin: 03/22/17 06:39 Dose: Not Given Thiamine HCl (Vitamin B1 Tab) 100 mg PO DAILY [facility] Last Admin: 03/22/17 08:29 Dose: 100 mg Valsartan (Diovan) 320 mg PO DAILY [facility] Last Admin: 03/22/17 08:29 Dose: 320 mg Warfarin Sodium (Coumadin) 5 mg PO 1700 ONE Stop: 03/22/17 17:01 Warfarin Sodium (Coumadin) 2 mg PO 1700 ONE Stop: 03/22/17 17:01 - Labs Labs: 03/08/17 05:20 03/01/17 06:40 PT 18.7 SECONDS (9.6-11.2) H 03/22/17 06:39 INR 1.80 (0.92-1.08) H 03/22/17 06:39 Assessment and Plan (1) CVA (cerebral vascular accident) Status: Acute (2) Constipation Status: Chronic (3) Leg ulcer, left Status: Chronic (4) Hypertension Status: Chronic (5) UTI (urinary tract infection) Status: Resolved (6) BPH (benign prostatic hyperplasia) Status: Chronic
[2017-03-23] MEDS: Insulin Regular 100 units/ml SC SCH (06:24)
--- NOTE | 2017-03-23 18:29 | CP.PCM.PN ---
Subjective - Date & Time of Evaluation Date of Evaluation: 03/23/17 Time of Evaluation: 18:00 Objective - Vital Signs/Intake and Output Vital Signs (last 24 hours): Temp Pulse Resp BP Pulse Ox 97.5 F L 64 20 145/83 98 03/23/17 10:00 03/23/17 10:00 03/23/17 10:00 03/23/17 10:00 03/23/17 10:00 - Medications Medications: Current Medications Acetaminophen (Tylenol 325mg Tab) 650 mg PO Q6 PRN PRN Reason: Pain 4-10 Last Admin: 03/23/17 06:20 Dose: 650 mg Amlodipine Besylate (Norvasc) 10 mg PO DAILY [facility] Last Admin: 03/23/17 09:11 Dose: 10 mg Aspirin (Aspirin Chewable) 81 mg PO DAILY [facility] Last Admin: 03/23/17 09:09 Dose: 81 mg Atorvastatin Calcium (Lipitor) 40 mg PO HS [facility] Last Admin: 03/22/17 21:07 Dose: 40 mg Cyanocobalamin (Vitamin B12 1000 Mcg Tab) 1,000 mcg PO DAILY [facility] Last Admin: 03/23/17 09:08 Dose: 1,000 mcg Docusate Sodium (Colace) 100 mg PO BID [facility] Last Admin: 03/23/17 17:37 Dose: Not Given Famotidine (Pepcid) 20 mg PO BID [facility] Last Admin: 03/23/17 17:37 Dose: 20 mg Ferrous Sulfate (Feosol) 325 mg PO DAILY [facility] Last Admin: 03/23/17 09:08 Dose: 325 mg Folic Acid (Folic Acid) 1 mg PO DAILY [facility] Last Admin: 03/23/17 09:08 Dose: 1 mg Insulin Human Regular (Humulin R) 0 units [place] 0630 [facility] PRN Reason: Protocol Last Admin: 03/23/17 06:24 Dose: Not Given Thiamine HCl (Vitamin B1 Tab) 100 mg PO DAILY [facility] Last Admin: 03/23/17 09:08 Dose: 100 mg Valsartan (Diovan) 320 mg PO DAILY [facility] Last Admin: 03/23/17 09:09 Dose: 320 mg - Labs Labs: 03/08/17 05:20 03/01/17 06:40 PT 20.0 SECONDS (9.6-11.2) H 03/23/17 06:55 INR 1.92 (0.92-1.08) H 03/23/17 06:55 Assessment and Plan (1) CVA (cerebral vascular accident) Status: Acute (2) Constipation Status: Chronic (3) Leg ulcer, left Status: Chronic (4) Hypertension Status: Chronic (5) UTI (urinary tract infection) Status: Resolved (6) BPH (benign prostatic hyperplasia) Status: Chronic
[2017-03-24] MEDS: Insulin Regular 100 units/ml SC SCH (06:03)
[2017-03-24 08:44] VITALS: BP 126/77; PULSE 89; RESP 19; TEMP 97.6; O2SAT 96
--- NOTE | 2017-03-24 11:49 | CP.PCM.PN ---
Subjective - Date & Time of Evaluation Date of Evaluation: 03/24/17 Time of Evaluation: 10:00 - Subjective Subjective: patient is resting in bed , no acute complaints at present Objective - Vital Signs/Intake and Output Vital Signs (last 24 hours): Temp Pulse Resp BP Pulse Ox 97.6 F 89 19 126/77 96 03/24/17 08:43 03/24/17 08:43 03/24/17 08:43 03/24/17 08:43 03/24/17 08:43 - Medications Medications: Current Medications Acetaminophen (Tylenol 325mg Tab) 650 mg PO Q6 PRN PRN Reason: Pain 4-10 Last Admin: 03/23/17 22:26 Dose: 650 mg Amlodipine Besylate (Norvasc) 10 mg PO DAILY [facility] Last Admin: 03/24/17 08:42 Dose: 10 mg Aspirin (Aspirin Chewable) 81 mg PO DAILY [facility] Last Admin: 03/24/17 08:42 Dose: 81 mg Atorvastatin Calcium (Lipitor) 40 mg PO HS [facility] Last Admin: 03/23/17 21:17 Dose: 40 mg Cyanocobalamin (Vitamin B12 1000 Mcg Tab) 1,000 mcg PO DAILY [facility] Last Admin: 03/24/17 08:43 Dose: 1,000 mcg Docusate Sodium (Colace) 100 mg PO BID [facility] Last Admin: 03/24/17 08:44 Dose: Not Given Famotidine (Pepcid) 20 mg PO BID [facility] Last Admin: 03/24/17 08:42 Dose: 20 mg Ferrous Sulfate (Feosol) 325 mg PO DAILY [facility] Last Admin: 03/24/17 08:43 Dose: 325 mg Folic Acid (Folic Acid) 1 mg PO DAILY [facility] Last Admin: 03/24/17 08:42 Dose: 1 mg Insulin Human Regular (Humulin R) 0 units [place] 0630 [facility] PRN Reason: Protocol Last Admin: 03/24/17 06:03 Dose: Not Given Thiamine HCl (Vitamin B1 Tab) 100 mg PO DAILY [facility] Last Admin: 03/24/17 08:42 Dose: 100 mg Valsartan (Diovan) 320 mg PO DAILY [facility] Last Admin: 03/24/17 08:42 Dose: 320 mg - Labs Labs: 03/08/17 05:20 03/01/17 06:40 PT 21.2 SECONDS (9.6-11.2) H 03/24/17 05:20 INR 2.04 (0.92-1.08) H 03/24/17 05:20 - Head Exam Head Exam: ATRAUMATIC, NORMAL INSPECTION, NORMOCEPHALIC - Eye Exam Eye Exam: EOMI, Normal appearance, PERRL Pupil Exam: NORMAL ACCOMODATION - ENT Exam ENT Exam: Mucous Membranes Moist, Normal Exam - Neck Exam Neck Exam: Normal Inspection - Respiratory Exam Respiratory Exam: NORMAL BREATHING PATTERN - Cardiovascular Exam Cardiovascular Exam: REGULAR RHYTHM - GI/Abdominal Exam GI & Abdominal Exam: Normal Bowel Sounds - Rectal Exam Rectal Exam: NORMAL INSPECTION - Exam External exam: NORMAL EXTERNAL EXAM - Extremities Exam Extremities Exam: Normal Capillary Refill, Normal Inspection - Back Exam Back Exam: NORMAL INSPECTION - Neurological Exam Neurological Exam: Alert, Awake Neuro motor strength exam: Left Upper Extremity: 2/1, Right Upper Extremity: 3, Left Lower Extremity: 2/1, Right Lower Extremity: 3 - Psychiatric Exam Psychiatric exam: Normal Affect, Normal Mood - Skin Skin Exam: Dry, Intact Assessment and Plan (1) Dizzinesses Status: Acute (2) Malignant hypertension Status: Acute (3) Constipation Status: Chronic (4) TIA (transient ischemic attack) Assessment & Plan: plan for physical, occupational, rec therapy for subacute rehab Status: Acute (5) Leg ulcer, left Status: Chronic (6) Infected wound Status: Acute (7) Effusion of right knee Status: Acute (8) CVA (cerebral vascular accident) Status: Acute
--- NOTE | 2017-03-25 00:13 | CP.PCM.DIS ---
Provider - Provider Date of Admission: 02/28/17 21:47 Attending physician: Shorty Duvall MD Primary care physician: Chapin Bowles DPM Time Spent in preparation of Discharge (in minutes): 25 Diagnosis - Discharge Diagnosis (1) CVA (cerebral vascular accident) Status: Acute Priority: Medium (2) Constipation Status: Chronic Priority: Low (3) Leg ulcer, left Status: Chronic Priority: Medium (4) Hypertension Status: Chronic Priority: Medium (5) UTI (urinary tract infection) Status: Resolved Priority: Medium (6) BPH (benign prostatic hyperplasia) Status: Chronic Hospital Course - Lab Results Lab Results: Most Recent Lab Values WBC 6.9 K/uL (4.8-10.8) 03/08/17 05:20 RBC 3.81 Mil/uL (4.40-5.90) L 03/08/17 05:20 Hgb 10.2 g/dL (12.0-18.0) L 03/08/17 05:20 Hct 32.3 % (35.0-51.0) L 03/08/17 05:20 MCV 84.9 fl (80.0-94.0) 03/08/17 05:20 MCH 26.9 pg (27.0-31.0) L 03/08/17 05:20 MCHC 31.7 g/dL (33.0-37.0) L 03/08/17 05:20 RDW 15.9 % (11.5-14.5) H 03/08/17 05:20 Plt Count 271 K/uL (130-400) 03/08/17 05:20 PT 21.2 SECONDS (9.6-11.2) H 03/24/17 05:20 INR 2.04 (0.92-1.08) H 03/24/17 05:20 Sodium 142 mmol/l (132-148) 03/01/17 06:40 Potassium 4.5 MMOL/L (3.6-5.0) 03/01/17 06:40 Chloride 105 mmol/L (98-107) 03/01/17 06:40 Carbon Dioxide 25 mmol/L (22-30) 03/01/17 06:40 Anion Gap 17 (10-20) 03/01/17 06:40 BUN 10 mg/dl (9-20) 03/01/17 06:40 Creatinine 1.2 mg/dL (0.8-1.5) 03/01/17 06:40 Est GFR ( Amer) > 60 03/01/17 06:40 Est GFR (Non-Af Amer) > 60 03/01/17 06:40 POC Glucose (mg/dL) 112 mg/dL (65-110) H 03/24/17 05:20 Random Glucose 104 mg/dL (75-110) 03/01/17 06:40 Hemoglobin A1c 5.9 % (4.2-6.5) 03/09/17 05:20 Calcium 9.0 mg/dL (8.4-10.2) 03/01/17 06:40 Total Bilirubin 0.4 mg/dl (0.2-1.3) 03/01/17 06:40 AST 38 U/L (17-59) 03/01/17 06:40 ALT 33 U/L (21-72) 03/01/17 06:40 Alkaline Phosphatase 95 U/L (38-126) 03/01/17 06:40 Total Protein 6.6 G/DL (6.3-8.2) 03/01/17 06:40 Albumin 3.3 g/dL (3.5-5.0) L 03/01/17 06:40 Globulin 3.3 gm/dL (2.2-3.9) 03/01/17 06:40 Albumin/Globulin Ratio 1.0 (1.0-2.1) 03/01/17 06:40 Free PSA 2.2 ng/mL (()) 03/01/17 20:45 % Free PSA Not calculated Percent (>25) 03/01/17 20:45 Total PSA 11.5 ng/mL (<=4.0) H 03/01/17 20:45 Prostate Cancer Risk >50 Percent (()) 03/01/17 20:45 Discharge Exam - Head Exam Head Exam: ATRAUMATIC, NORMAL INSPECTION, NORMOCEPHALIC Discharge Plan - Follow Up Plan Condition: GOOD Disposition: TRANSF TO SNF Referrals: Chapin Bowles DPM [Primary Care Provider] -
== END 2017-03-24 13:40 | DRG 57 ==
PROVIDERS: ADMIT Internal Medicine; ATTEND Internal Medicine
PROC: F06ZDZZ Swallowing Dysfunction Treatment (ICD-10-PCS; principal; 2017-02-28)
PROC: F08Z4ZZ Home Management Treatment (ICD-10-PCS; 2017-02-28)
PROC: F07L6FZ Therapeutic Exercise Treatment of Musculoskeletal System - Lower Back / Lower Extremity using Assistive, Adaptive, Supportive or Protective Equipment (ICD-10-PCS; 2017-02-28)
PROC: F07Z9FZ Gait Training/Functional Ambulation Treatment using Assistive, Adaptive, Supportive or Protective Equipment (ICD-10-PCS; 2017-02-28)
DX: I69.354 Hemiplegia and hemiparesis following cerebral infarction affecting left non-dominant side (principal); I69.391 Dysphagia following cerebral infarction; I69.322 Dysarthria following cerebral infarction; R13.10 Dysphagia, unspecified; N39.0 Urinary tract infection, site not specified; I69.392 Facial weakness following cerebral infarction; I69.328 Other speech and language deficits following cerebral infarction; I12.9 Hypertensive chronic kidney disease with stage 1 through stage 4 chronic kidney disease, or unspecified chronic kidney disease; N18.2 Chronic kidney disease, stage 2 (mild); E78.5 Hyperlipidemia, unspecified; I73.9 Peripheral vascular disease, unspecified; K59.00 Constipation, unspecified; N40.0 Benign prostatic hyperplasia without lower urinary tract symptoms; Z99.3 Dependence on wheelchair; I87.2 Venous insufficiency (chronic) (peripheral); Z87.891 Personal history of nicotine dependence; M25.461 Effusion, right knee; M11.261 Other chondrocalcinosis, right knee; R42 Dizziness and giddiness